=== PATIENT | female | born 1965 | race Caucasian/White ===

== ENCOUNTER 2022-05-01 00:18 | Emergency (ER) | payer OTHER ==
--- NOTE | 2022-05-01 03:33 | ER ---
Nurse's Notes [facility] Name: Bibiana Lomeli Age: 56 yrs Sex: Female : 1965 Arrival Date: 05/01/2022 Time: 00:22 Bed 15 Private MD: Diagnosis: Contusion of left foot Presentation: 05/01 01:00 Chief complaint: Patient states: "I did something to my left foot, the 3 toes in the vc1 middle hurt.". Coronavirus screen: Vaccine status: Patient reports being unvaccinated. Client denies travel out of the [place] in the last 14 days. At this time, the client does not indicate any symptoms associated with coronavirus-19. Ebola Screen: Patient negative for fever greater than or equal to 101.5 degrees Fahrenheit, and additional compatible Ebola Virus Disease symptoms Patient denies exposure to infectious person. Patient denies travel to an Ebola-affected area in the 21 days before illness onset. No symptoms or risks identified at this time. Risk Assessment: Do you want to hurt yourself or someone else? Patient reports no desire to harm self or others. Onset of symptoms was April 27, 2022. 01:00 Method Of Arrival: Ambulatory vc1 01:00 Acuity: CHAPARRITA 4 vc1 01:09 Initial Sepsis Screen: Does the patient meet any 2 criteria? No. Patient's initial vc1 sepsis screen is negative. Does the patient have a suspected source of infection? No. Patient's initial sepsis screen is negative. Triage Assessment: 01:05 General: Appears in no apparent distress. Behavior is calm, cooperative, appropriate vc1 for age. Pain: Complains of pain in left second toe, left third toe and left fourth toe Pain does not radiate. Pain currently is 7 out of 10 on a pain scale. EENT: No deficits noted. No signs and/or symptoms were reported regarding the EENT system. Neuro: No deficits noted. Cardiovascular: No deficits noted. Respiratory: Airway is patent Respiratory effort is even, unlabored, Respiratory pattern is regular, symmetrical. GI: No deficits noted. No signs and/or symptoms were reported involving the gastrointestinal system. : No deficits noted. No signs and/or symptoms were reported regarding the genitourinary system. Derm: Bruising that is dark purple, on left second toe, left third toe and left fourth toe. Musculoskeletal: Reports pain in left second toe, left third toe and left fourth toe. 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 - Post-menopause vc1 Historical: - Allergies: 01:02 PENICILLINS; vc1 01:02 Levaquin; vc1 01:02 Avalox; vc1 01:02 Morphine; vc1 01:02 Macrodentin; vc1 01:02 Clindamycin; vc1 01:02 Clarithromycin; vc1 - Home Meds: 01:02 metoprolol tartrate 25 mg Oral tab 1 tab 2 times per day [Active]; gabapentin 300 mg vc1 oral cap 1 cap 3 times per day [Active]; oxybutynin chloride 10 mg Oral tr24 1 tab twice a day [Active]; glipizide 10 mg Oral tab 1 tab 2 times per day [Active]; atorvastatin 40 mg oral tab 1 tab once daily [Active]; Nexium 40 mg Oral cpDR 1 cap once daily [Active]; - PMHx: 01:02 Diabetes mellitus; Hypertensive disorder; XGP kidney; vc1 - PSHx: 01:02 section; Stented artery; Cholecystectomy; vc1 - Immunization history:: Client reports having NOT received the Covid vaccine. - Social history:: Smoking status: Patient/guardian denies using tobacco, but has a distant history of tobacco abuse. Screenin:28 [facility] ED Fall Risk Assessment (Adult) History of falling in the last 3 months, lg3 including since admission No falls in past 3 months (0 pts). Abuse screen: Denies threats or abuse. Denies injuries from another. Nutritional screening: No deficits noted. Tuberculosis screening: No symptoms or risk factors identified. Assessment: 02:28 General: Appears in no apparent distress. comfortable, Behavior is calm, cooperative. lg3 Pain: Complains of pain in left foot. Neuro: No deficits noted. Leslie Agitation-Sedation Scale (RASS): 0 - Alert and Calm Level of Consciousness is awake, alert, obeys commands, Oriented to person, place, time, situation. Cardiovascular: No deficits noted. Denies chest pain, shortness of breath, Capillary refill < 3 seconds Clubbing of nail beds is absent JVD is absent Patient's skin is warm and dry. Respiratory: No deficits noted. Airway is patent Respiratory effort is even, unlabored, Respiratory pattern is regular, symmetrical. GI: No deficits noted. No signs and/or symptoms were reported involving the gastrointestinal system. : No deficits noted. No signs and/or symptoms were reported regarding the genitourinary system. EENT: No deficits noted. No signs and/or symptoms were reported regarding the EENT system. Derm: Skin is intact, is healthy with good turgor, Skin is dry, Skin is normal, Skin temperature is warm Bruising that is green, yellow, on left fourth toe and left third toe and left second toe. Musculoskeletal: Swelling present in left fourth toe and left third toe and left second toe Reports pain in left foot. 03:50 Reassessment: Patient appears in no apparent distress at this time. No changes from lg3 previously documented assessment. Patient and/or family updated on plan of care and expected duration. Pain level reassessed. Patient is alert, oriented x 3, equal unlabored respirations, skin warm/dry/pink. Vital Signs: 01:00 Weight 102.97 kg; Height 5 ft. 4 in. (162.56 cm); Pain 6/10; vc1 01:07 BP 164 / 78; Pulse 62; Resp 14; Temp 97.7; Pulse Ox 99% ; vc1 03:50 BP 149 / 76; Pulse 71; Resp 16 S; Pulse Ox 100% on R/A; lg3 01:00 Body Mass Index 38.96 (102.97 kg, 162.56 cm) vc1 ED Course: 00:22 Patient arrived in ED. ja2 01:02 Triage completed. vc1 01:07 Arm band placed on left wrist. vc1 01:23 Andrew Abebe NP is PHCP. pm1 01:23 Kristian Pruitt MD is Attending Physician. pm1 02:28 Patient has correct armband on for positive identification. Placed in gown. Bed in low lg3 position. Call light in reach. Side rails up X 1. Door closed. Noise minimized. Warm blanket given. 03:50 No provider procedures requiring assistance completed. Patient did not have IV access lg3 during this emergency room visit. Administered Medications: 03:49 Drug: Acetaminophen-Codeine (300 mg-30 mg) 1 tablet Route: PO; lg3 03:50 Follow up: Response: No adverse reaction lg3 Medication: 03:51 VIS not applicable for this client. lg3 Outcome: 03:33 Discharge ordered by MD. pm1 03:50 Discharged to home ambulatory. lg3 03:50 Condition: stable 03:50 Discharge instructions given to patient, Instructed on discharge instructions, follow up and referral plans. medication usage, Demonstrated understanding of instructions, follow-up care, medications, Prescriptions given X 1. 04:00 Patient left the ED. lg3 Signatures: Andrew Abebe NP EQUIPMENT PROCESSOR pm1 Mitzi Barriga RN RN lg3 Emily Cardona 2 Mili Cash RN RN vc1 Corrections: (The following items were deleted from the chart) : 02:28 Derm: No deficits noted. Skin is intact, is healthy with good turgor, Skin is lg3 dry, Skin is normal, Skin temperature is warm lg3 :33 02:28 Musculoskeletal: Reports pain in left foot lg3 lg3
--- NOTE | 2022-05-01 03:33 | EDPHYS ---
Physician Documentation [facility] Name: Bibiana Lomeli Age: 56 yrs Sex: Female : 1965 Arrival Date: 05/01/2022 Time: 00:22 Bed 15 Private MD: KIARA Physician Kristian Pruitt HPI: 05/01 01:46 This 56 yrs old Female presents to ER via Ambulatory with complaints of Foot Injury. pm1 01:46 The patient presents with pain, that is acute. The complaints affect the left second pm1 toe, left third toe and left fourth toe. Context: The problem was sustained at home, resulted from stubbing her foot on something, the patient can fully bear weight, the patient is able to ambulate, Problem is a result from a previous injury: No. Onset: The symptoms/episode began/occurred 1 week(s) ago. Modifying factors: The symptoms are alleviated by nothing. the symptoms are aggravated by touching area. Associated signs and symptoms: Pertinent positives: swelling, bruising to affected toes. Treatment prior to arrival includes: no previous treatment. Severity of symptoms: in the emergency department the symptoms are unchanged. The patient has not experienced similar symptoms in the past. The patient has not recently seen a physician. 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/A - Post-menopause vc1 Historical: - Allergies: 01:02 PENICILLINS; vc1 01:02 Levaquin; vc1 01:02 Avalox; vc1 01:02 Morphine; vc1 01:02 Macrodentin; vc1 01:02 Clindamycin; vc1 01:02 Clarithromycin; vc1 - Home Meds: 01:02 metoprolol tartrate 25 mg Oral tab 1 tab 2 times per day [Active]; gabapentin 300 mg vc1 oral cap 1 cap 3 times per day [Active]; oxybutynin chloride 10 mg Oral tr24 1 tab twice a day [Active]; glipizide 10 mg Oral tab 1 tab 2 times per day [Active]; atorvastatin 40 mg oral tab 1 tab once daily [Active]; Nexium 40 mg Oral cpDR 1 cap once daily [Active]; - PMHx: 01:02 Diabetes mellitus; Hypertensive disorder; XGP kidney; vc1 - PSHx: 01:02 section; Stented artery; Cholecystectomy; vc1 - Immunization history:: Client reports having NOT received the Covid vaccine. - Social history:: Smoking status: Patient/guardian denies using tobacco, but has a distant history of tobacco abuse. ROS: 01:46 Constitutional: Negative for fever, chills, and weight loss, Cardiovascular: Negative pm1 for chest pain, palpitations, and edema, Respiratory: Negative for shortness of breath, cough, wheezing, and pleuritic chest pain. 01:46 Skin: Negative for injury, rash, and discoloration. 01:46 MS/extremity: Positive for pain, swelling, tenderness, of the left fourth toe and left third toe and left second toe. 01:46 All other systems are negative. Exam: 01:46 Constitutional: This is a well developed, well nourished patient who is awake, alert, pm1 and in no acute distress. Head/Face: Normocephalic, atraumatic. 01:46 Cardiovascular: Exam negative for acute changes, Rate: normal, Rhythm: regular, Pulses: no pulse deficits are appreciated. 01:46 Respiratory: Exam negative for acute changes, respiratory distress, shortness of breath. 01:46 Musculoskeletal/extremity: Extremities: grossly normal except: noted in the left fourth toe and left third toe and left second toe: ecchymosis, swelling, tenderness, There is no evidence of decreased ROM, deformity. 01:46 Neuro: Exam negative for acute changes, Orientation: is normal, Mentation: is normal, Motor: is normal, moves all fours. Vital Signs: 01:00 Weight 102.97 kg; Height 5 ft. 4 in. (162.56 cm); Pain 6/10; vc1 01:07 BP 164 / 78; Pulse 62; Resp 14; Temp 97.7; Pulse Ox 99% ; vc1 03:50 BP 149 / 76; Pulse 71; Resp 16 S; Pulse Ox 100% on R/A; lg3 01:00 Body Mass Index 38.96 (102.97 kg, 162.56 cm) vc1 MDM: 01:28 Patient medically screened. pm1 01:46 ED course: Patient offered pain medications, She refused.. pm1 02:18 Data reviewed: vital signs. pm1 02:18 Differential diagnosis: dislocation, closed fracture, contusion. pm1 03:32 Counseling: I had a detailed discussion with the patient and/or guardian regarding: the pm1 historical points, exam findings, and any diagnostic results supporting the discharge/admit diagnosis, radiology results, the need for outpatient follow up, to return to the emergency department if symptoms worsen or persist or if there are any questions or concerns that arise at home. 05/01 01:45 Order name: Foot Left 3 View XRAY pm1 05/01 03:38 Order name: Post-op Orthopedic Shoe; Complete Time: 03:50 pm1 Administered Medications: 03:49 Drug: Acetaminophen-Codeine (300 mg-30 mg) 1 tablet Route: PO; lg3 03:50 Follow up: Response: No adverse reaction lg3 Disposition: 07:07 Co-signature as Attending Physician, Kristian Pruitt MD I reviewed the patient's care rt provided by the Advanced Practice Provider and agree with the diagnosis and treatment plan. Disposition Summary: 05/01/22 03:33 Discharge Ordered Location: Home pm1 Problem: new pm1 Symptoms: have improved pm1 Condition: Stable pm1 Diagnosis - Contusion of left foot pm1 Followup: pm1 - With: Emergency Department - When: As needed - Reason: Worsening of condition Followup: pm1 - With: Private Physician - When: 2 - 3 days - Reason: Recheck today's complaints, Continuance of care, Re-evaluation by your physician Discharge Instructions: - Discharge Summary Sheet pm1 - Foot Contusion pm1 Forms: - Medication Reconciliation Form pm1 - Thank You Letter pm1 - Antibiotic Education pm1 - Prescription Opioid Use pm1 Prescriptions: - Tylenol-Codeine #3 300 mg-30 mg Oral - take 2 tablet by ORAL route every 6 hours As needed; 20 tablet; Refills: 0, pm1 Product Selection Permitted Signatures: Dispatcher [employer] EDAndrew Rob, HIMANSHU FABRIC WORKER LEADER pm1 Mitzi Barriga, RN RN lg3 Mili Cash RN RN vc1 Kristian Pruitt MD MD rt
[2022-05-01] MEDS ORDERED: CODEINE 30MG/APAP 300MG TAB ONE (03:45)
[2022-05-01 04:22] VITALS: TEMP 97.7
[2022-05-01 04:26] VITALS: BP 149/76; O2SAT 100
--- NOTE | 2022-05-01 09:59 | RAD REPORT ---
EXAM DESCRIPTION: RAD - Foot Left 3 View - 05/01/2022 2:48 am CLINICAL HISTORY: Female, 56 years old, PAIN TECHNIQUE: 3 views COMPARISON: None. FINDINGS: Diffuse osteopenia slightly limits assessment. No acute fracture or dislocation. Joint spa marshall and articular surfaces are preserved. Dorsal soft tissue swelling of the forefoot. IMPRESSION: Osteopenia with dorsal soft tissue swelling of the forefoot. No acute osseous finding of the left foot. Electronically signed by: Miguel Angel Lo MD 05/01/2022 3:02 AM PRODUCTION ENGINE REPAIRER Due to temporary technical issues with the PACS/Fluency reporting system, reports are being signed by the in house radiologists without review as a courtesy to insure prompt reporting. The interpreting radiologist is fully responsible for the content of the report.
== END 2022-05-01 04:00 | disposition home or self-care (01) ==
LOC: ER 00:18
DX: S90.122A Contusion of left lesser toe(s) without damage to nail, initial encounter (principal)
CPT/HCPCS: 99283

== ENCOUNTER 2023-01-27 17:56 | Emergency (ER) | payer OTHER ==
--- OUTSIDE RECORDS SUMMARY | 2023-01-27 18:05 | XMS REPORT | Continuity of Care Document ---
:1965 Author Organization [facility] t Address [address] [facility] [place] [address] Care Team Providers Name Role Phone LEROY SON Primary Care Physician Unavailable AUREA GUZMÁN Attending Clinician Unavailable NIYA JACKSON Attending Clinician Unavailable HUMBERTO SUTHERLAND Attending Clinician Unavailable MD BRAULIO Attending Clinician Unavailable DELGADO DUMONT Attending Clinician Unavailable Sonia Bagley Attending Clinician Unavailable JENNIFER MENA Attending Clinician Unavailable ANGELO ORELLANA Attending Clinician Unavailable CHRISTOPH GUSMAN Attending Clinician Unavailable LAB90 Attending Clinician Unavailable CHANO SCOTT Attending Clinician Unavailable SHAD DE LA ROSA Attending Clinician Unavailable ALFONSO GARCIA Attending Clinician Unavailable DEZ MEAD Attending Clinician Unavailable SHOAIB NAVARRO Attending Clinician Unavailable Omar Murphy MD Attending Clinician OMAR MURPHY Attending Clinician Unavailable MIREYA SHAW Attending Clinician Unavailable MALENA CHAND Attending Clinician Unavailable AUREA GUZMÁN Admitting Clinician Unavailable Federica Phipps Admitting Clinician Unavailable TEJAS BURNS Admitting Clinician Unavailable Physician, No Primary or Family Admitting Clinician Unavaila MALENA Mejia Admitting Clinician Unavailable Payers Payer Name Policy Type Policy Number Effective Date Expiration Date Isha DESAI [id number] 2018 00:00:00 GINA SMITH [employer] 9 [id number] 2022 SILVER 3: HMO PHYSICAL THERAPY ASST 00:00:00 87 ON Problems Condition Condition Condition Status Onset Resolution Last Treating Co mments Source Name Details Category Date Date Treatment Clinician Date Bilateral Bilateral Disease Active 2022-03 Nettie y hip pain hip pain 0-05 Seybol d 00:00: - 00 Externa l Chronic Chronic Disease Active 2022-03 Louisa bilateral bilateral 0-05 Seyb old low back low back 00:00: - pain pain 00 Externa without without l sciatica sciatica Current Current Disease Active Louisa 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-05 Se ybold major major 00:00: - depressive depressive 00 Ex terna disorder disorder l without without prior prior episode episode Anxiety Anxiety Disease Active Louisa 9-07 Seybold 00:00: - 00 Externa l 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 [place] in 2017 History of History of Disease Active Overview : Louisa heart heart 8-10 Formattin Seybold artery artery 00:00: g of this - stent stent 00 note Externa might be l different from the original. 2017 one stent placed. 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 00:00: - pyelonephr pyelonephr 00 Ex terna itis) itis) l Chronic Chronic Disease Active [place]a cystitis cystitis 2-28 Seybol d 00:00: - 00 Externa l 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 00:00: - mixed mixed 00 Externa hyperlipid hyperlipid l emia emia (multi (multi [facility]) [facility]) Seasonal Seasonal Disease Active Kelse y allergic allergic 2- Seybol d rhinitis rhinitis 00:00: - due to due to 00 Externa pollen pollen l BRANDEN-inhibi BRANDEN-inhibi Disease Active K elsey tor cough tor cough 2-28 Seyb old 00:00: - 00 Externa l Primary Primary Disease Active [place]a hypertensi hypertensi 2-28 Se ybold on on 00:00: - 00 Externa l Gastroesop Gastroesop Disease Active K kahlil hageal hageal 2-28 Seybold reflux reflux 00:00: - disease disease 00 Externa without without l esophagiti esophagiti s s Acute Acute Disease Active [facility] pyelonephr pyelonephr 6-13 Светлана kes itis itis 00:00: Medical 00 Center Left flank Left flank Disease [facility] Pyelonephr Pyelonephr Disease Active [facility] itis 6[facility]12 [facility] Center Type 2 Type 2 Disease Recurre Last [facility] Diabetes Diabetes nce 3-04 Assess[facility] Ysabel es 00:00: t & Plan: Medical 00 [facility] Center g of this note might be different from the original. Diabetes is diet controlle d per patient report. In review of past HGA1C, there have been times her level was 8. Diet modificat ion and education was done today on decreasin g carbohydr ates in her diet. Follow up with PCP encourage d. Again, diabetes when poorly controlle d, is a factor in metabolic syndrome and ultimatel y fatty liver risk factor. NAFL NAFL Disease Active [facility] (nonalcoho (nonalcoho - [facility] lic fatty lic fatty 00:00: t & Plan: M edical liver) liver) 00 [facility] g of this note might be different from the original. Non alcoholic fatty liver suspected due to changes on imaging and the multiple risk factors of metabolic syndrome. See discussio n above. Non invasive testing with fibroscan and fat cap are offered free of charge with this visit. The fibroscan will be a non invasive estimate of fibrosis and the new fat cap will estimate the fat content of the liver. The patient must be fasting for this free testing. She will return to review her testing in a few weeks and get the free studies noted on that day. Obesity Obesity Disease Active [facility] 3- [facility] 00:00: t & Plan: Medical 00 [facility] g of this note might be different from the original. Body mass index is 36.66 kg/m2. Obesity is a risk factor for fatty liver disease and a major part of metabolic syndrome. Today we reviewed the need to control all risk factors for fatty liver which will include diet modificat ion and exercise for weight loss. Metabolic Metabolic Disease Active [facility] syndrome syndrome 3- Assessmen Ysabel es 00:00: t & Plan: Medical [address] [place] [address] g of this note might be different from the original. Risk factors for metabolic syndrome includes obesity, DM, hyperlipi demia and hypertens ion. She has all risk factors for metabolic syndrome which raises the risks for fatty liver. Control of these risk factors is critical to improve the fatty liver. Immunity Immunity Disease Active [facility] t status status 3- [facility] testing testing 00:00: t & Plan: Medic al 00 [facility] g of this note might be different from the original. Serologic al tests will be completed to determine the presence of immunity to hepatitis A and B. If the patient does not have adequate immunity, we would recommend administr ation of appropria te vaccinati on as per CDC guideline s by the primary care provider. Abnormal Abnormal Disease [facility] diagnostic [facility]:00: t & Plan: Medical imaging [facility] of this note might be different from the original. The high level imaging was done without contrast but showed evidence of changes consisten t with fatty liver. Underlyin g liver disease can be hidden in the fatty liver. She has multiple risk factors for fatty liver with metabolic syndrome. See discussio n below. A comprehen sive work up is planned to assess for genetic, autoimmun e and hereditar y liver diseases. She also has a sister that has hemochrom atosis. Iron panels and ferritin will be done for screening . Abnormal Abnormal Disease [facility] enzymes enzymes 00:00: t & Plan: Medic al 00 [facility] g of this note might be different from the original. The liver enzymes are noted to be mildly abnormal in a hepatocel lular pattern without evidence of synthetic dysfuncti on. No recent labs however. As noted above, a comprehen sive assessmen t is planned. Other Other Disease Active [facility] hyperlipid [facility]lipid 3-04 [facility] emia emia 00:00: t & Plan: Medical 00 [facility] g of this note might be different from the original. Hyperlipi demia is a risk factor for metabolic syndrome and thus raises the risk for fatty liver disease. There are no contraind ications at this time for statin therapy. Control of the lipids through medicatio n, diet and exercise all reinforce d today. Nephrolith Nephrolith Disease Active [facility] iasis iasis 7-31 [facility] 00:[facility]: [facility] 00 Center ROUTINE ROUTINE Diagnosis Active 2015-06-11 [facility] MAMMOGRAM MAMMOGRAM 2-16 16:34:00 l Active 00:00: Brian 04/16/2015 00 [facility] Allergies, Adverse Reactions, Alerts Allergy Allergy Status Severity Reaction(s) Onset Inactive Treating Comm ents Source Name Type Date Date Clinician Penicill DA Active U UNKNOWN 2022-03 [facility] ins 0-21 Clear 00:00: Brian 00 [facility] Quinolon DA Active U UNKNOWN 2022-03 [facility] es 0-21 Clear 00:00: Brian 00 [facility] prochlor DA Active U UNKNOWN 2022-03 [facility] perazine 0-21 Clear 00:00: Brian [facility] morphine DA Active SV HIVES 2022-03 [facility] 0-21 Clear 00:00: Brian [facility] nitrofur DA Active U UNKNOWN 2022-03 [facility] antoin 0-21 Clear 00:00: Brian [facility] levoflox DA Active U UNKNOWN 2022-03 [facility] acin 0-21 Clear 00:00: Brian [facility] moxiflox DA Active U UNKNOWN 2022-03 [facility] acin 0-21 Clear 00:00: Brian [facility] Morphine Propensi Active Hives Louisa ty to 9-07 Seybold adverse 00:00: - reaction 00 Externa s l Prilosec Propensi Active 2020-03 Diffuse Kelse y Otc ty to 0-11 blisterin Seybold adverse 00:00: g skin - reaction 00 rash, was Exter na s previousl l y on nexium and tolerated Clarithr Propensi Active Other (See [facility] omycin ty to Comments) 3-04 [facility] adverse 00:00: Medical reaction 00 Center s Nitrofur Propensi Active Other (See headaches [facility] antoin ty to Comments) 3-04 [facility] Monohyd/ adverse 00:00: Medical M-Cryst reaction 00 Center s Clarithr Propensi Active Other [place] omycin ty to 3-04 reaction( Seybold adverse 00:00: s): Other - reaction 00 (See Externa s Comments) l CLARITHR Allergy Active Other [facility] OMYCIN 3-04 [facility] 00:[facility]: Medical 00 Center NITROFUR Allergy Active Other [facility] ANTOIN 3-04 [facility] MONOHYD/ 00:00: Medical M-CRYST 00 Center Clindamy Propensi Active Other (See Sunlight [facility] sole ty to Comments) 2-19 esposure [facility] adverse 00:00: Medical reaction 00 Center s CLINDAMY Allergy Active Other [facility] SOLE 2-19 [facility] 00:00: Medical 00 Center Doxycycl Drug Active Blurred [facility] ine Allergy 7-31 vision [facility] 00:[facility]: Medical 00 [place] DOXYCYCL Allergy Active Med [facility] INE 7-31 [facility] 00:[facility]: Medical 00 Center Morphine Propensi Active Hives [facility] ty to 717 [facility] adverse 00:00: Medical reaction 00 Center s Penicill Propensi Active Shortness Of [address] [facility] ins ty to Breath, 717 has [facility] adverse Swelling 00:00: tolerated Medi odilon reaction 00 Cephalosp Cente r s orins including Ceftriaxo ne and Cephalexi n. Moxiflox Propensi Active Shortness Of [facility] acin ty to Breath 717 [facility] adverse 00:00: Medical reaction 00 [place] s Levoflox Propensi Active Shortness Of [facility] acin ty to Breath 717 [facility] adverse 00:00: Medical reaction 00 [place] s MOXIFLOX Allergy Active High Sob [facility] ACIN 7-17 [facility] 00:00: Medical 00 [place] LEVOFLOX Allergy Active High [facility] ACIN 7-17 [facility] 00:00: Medical 00 [place] PENICILL Allergy Active High [facility] INS 7-17 [facility] 00:00: Medical 00 [place] MORPHINE Allergy Active Hives [facility] 7-17 [facility] 00:00: Medical 00 [place] Nitrofur Propensi Active Headaches [facility] antoin ty to 4-23 [facility] Macrocry adverse 00:00: Medical stal reaction 00 Center s Kdc:[place] Propensi Active Short of Sarah ey ow ty to 4-23 breath Seybold Dye+Tart adverse 00:00: - razine+L reaction 00 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 s l sole Nitrofur Propensi Active Headaches Nettie sey antoin ty to 4-23 Seybold Macrocry adverse 00:00: - stal reaction 00 Externa s l NITROFUR Allergy Active [facility] ANTOIN 4-23 [facility] MACROCRY 00:00: Medical STAL 00 Center Nitrofur Propensi Active Other [place]a antoin ty to 327 reaction( Seybold Sodium adverse 00:00: s): Other - reaction 00 (See Externa s Comments) l , Other (See Comments) headaches Headaches headaches headaches headaches Prochlor Propensi Active 2018-0 [place]a perazine ty to 3-27 Seybold Edisylat adverse 00:00: - e reaction 00 Externa s l Penicill DA Active U UNKNOWN 2018-0 [facility] ins 3-27 Clear 00:00: Brian 00 [facility] Quinolon DA Active U UNKNOWN 2018-0 [facility] es 3-27 Clear 00:00: Brian 00 [facility] prochlor DA Active U 2018-0 [facility] perazine 3-27 Clear 00:00: Brian 00 [facility] morphine DA Active SV 2018-0 [facility] 3-27 Clear 00:00: Brian 00 [facility] nitrofur DA Active U 2018-0 [facility] antoin 3-27 Clear 00:00: Felton [facility] levoflox DA Active U UNKNOWN 2017-0 [facility] acin 3-27 Clear 00:00: Felton 00 [facility] moxiflox DA Active U 2018-0 [facility] acin 3-27 Clear 00:00: Brian 00 [facility] prochlor DA Active U UNKNOWN 20180 [facility] perazine 3-27 Clear 00:00: Brian 00 [facility] morphine DA Active SV HIVES 2018-0 [facility] 3-27 Clear 00:00: Brian 00 [facility] nitrofur DA Active U UNKNOWN 2018-0 [facility] antoin 3-27 Clear 00:00: Felton 00 [facility] moxiflox DA Active U UNKNOWN 2018-0 [facility] acin 3-27 Clear 00:00: Brian 00 [facility] Codeine Propensi Active Hives 0 itchingHi Sarah ey ty to 2-13 ves and Seybold adverse 00:00: itching - reaction 00 Externa s l Penicill Propensi Active Swelling Patient Nettie sey ins ty to 808 has Seybold adverse 00:00: tolerated - reaction 00 Cephalosp Exter na s orins l including Ceftriaxo ne and Cephalexi n.All air passages swellPati ent has tolerated Cephalosp orins including Ceftriaxo ne and Cephalexi n. Moxiflox Propensi Active Shortness of [place]a acin Hcl ty to Breath 10-06 Seybold adverse 00:00: - reaction 00 Externa s l Family History Family Member Diagnosis Comments Start Date Stop Date Source Natural mother Diabetes [facility] Natural mother Hypertension [facility] Natural mother Mental illness [facility] Natural mother Mental illness [facility] Natural sister Diabetes [facility] Social History Social Habit Start Date Stop Date Quantity Comments Source Gender identity Louisa ochoa - External History of tobacco Cigarette Smoker [facility] Sexual orientation [facility] Tobacco use and 2022-04-28 2022-04-28 Smokeless tobacco Juan beck Seybold exposure 00:00:00 00:00:00 non-user - External Alcohol intake 2022-02-05 2022-02-05 Current [facility] es 00:00:00 00:00:00 non-drinker of Medical Ce nter alcohol (finding) History of Social 2022-02-05 2022-02-05 [facility] function 00:00:00 00:00:00 [facility] Sex Assigned At 1965 [address] [facility] [address] Светлана roca 00:00:00 00:00:00 Medical Center Smoking Status Start Date Stop Date Source Tobacco smoking Louisa Reyes - consumption unknown External Never smoked tobacco Louisa Cope old - External Ex-smoker 2017-09-14 00:00:00 2017-09-14 [facility] 00:00:00 Center Medications Ordered Filled Start Stop Current Ordering Indication Dosage Frequency Signature Comments Components Source Medication Medication Date Date Medication? Clinician (SIG) Name Name Gabapentin 2022-03- No 300mg Take 1 Nettie mercedes 300 MG oral 0-05 10-05 capsule Prisca old Capsule 13:59: 00:00 (300 mg - 41 :00 total) by Externa mouth 3 l times daily. Calcium-Mag 2022-03 Yes 6{tbl} Take 6 Juan beck nesium-Zinc 0-05 tablets by Se ochoa [id number] 13:37: mouth - MG oral 52 daily Externa Tablet l Cholecalcif 2022-03 Yes 2000U Take 1 Nettie mercedes bryan 0-05 capsule Amy (Vitamin 13:37: (2,000 - D3) 50 MCG 52 units Externa (1999 UT) total) by l oral mouth Capsule daily. B 2022-03 Yes Take by Louisa Complex-Bio 0-05 mouth Seybold tin-FA (B 13:37: - COMPLETE 52 Externa OR) l Acetaminoph 2022-03 Yes 1{tbl} Q4H Take 1 Ke lsey en-Codeine 0-05 tablet by Seyb old #3 300-30 13:37: mouth - MG oral 52 every 4 Externa Tablet hours as l needed for pain. Metoprolol 2022-03 Yes 25mg Take 1 Kelse y Tartrate 0-05 tablet (25 Seybo ld (LOPRESSOR) 13:37: mg total) - 25 MG oral 52 by mouth 2 Ext martha Tablet times l daily. Esomeprazol 2022-03 Yes 40mg Take 2 Sarah ey e Magnesium 0-05 capsules Seyb old 20 MG oral 13:37: (40 mg - Delayed 52 total) by Externa Release mouth l Capsule every morning (before breakfast) . ASHWAGANDHA 2022-03 Yes Take by Nettie sey OR 0-05 mouth Seybold 13:37: - 52 Externa l Gabapentin 2022-03 Yes [id number] 400mg Take 1 Louisa 400 MG oral 0-05 capsule Seybo ld Capsule 00:00: (400 mg - 00 total) by Externa mouth 3 l times daily. Insulin 2022-03 Yes [id number] 76 units K elsey Glargine 0-05 sc daily. Seybol d (Basaglar 00:00: - KwikPen) 00 Externa 100 UNIT/ML l subcutaneou s Solution Pen-injecto r Insulin 2022-03 Yes [id number] If BS is K elsey Aspart 0-05 250 to Seybold (NovoLOG 00:00: 300, then - FlexPen) 00 take 2 Externa 100 UNIT/ML units sc, l subcutaneou If BS is s Solution 301 to 350 Pen-injecto then take r 4 units sc, If BS is 351 to 400 then take 6 units sc, If BS is above 401 take 8 units sc.She is to use insulin 3 times a day with meals with above instructio n. Continuous 2022-03 Yes [id number] Use as Louisa Blood Gluc 0-05 directed.. Sey bold Sensor 00:00: - (FreeStyle 00 Externa Soumya 3 l Sensor) does not apply Misc Calcium-Mag Yes 6{tbl} Take 6 Ke lsey nesium-Zinc 9-25 tablets by Se ybold [id number] 08:35: mouth - MG oral 58 daily Externa Tablet l Cholecalcif 0 Yes 2000U Take 1 Nettie sey bryan 9-25 capsule Seybold (Vitamin 08:35: (2,000 - D3) 50 MCG 58 units Externa (2000 UT) total) by l oral mouth Capsule daily. B Yes Take by Louisa Complex-Bio 9-25 mouth Seybold tin-FA (B 08:35: - COMPLETE 58 Externa OR) l Acetaminoph 0 Yes 1{tbl} Q4H Take 1 Ke lsey en-Codeine 9-25 tablet by Seyb old #3 300-30 08:35: mouth - MG oral 58 every 4 Externa Tablet hours as l needed for pain. Gabapentin Yes 300mg Take 1 Sarah ey 300 MG oral 9-25 capsule Seybo ld Capsule 08:35: (300 mg - 58 total) by Externa mouth 3 l times daily. Metoprolol Yes 25mg Take 1 Kelse y Tartrate 9-25 tablet (25 Seybo ld (LOPRESSOR) 08:35: mg total) - 25 MG oral 58 by mouth 2 Ext martha Tablet times l daily. Esomeprazol Yes 40mg Take 2 Sarah ey e Magnesium 9-25 capsules Seyb old 20 MG oral 08:35: (40 mg - Delayed 58 total) by Externa Release mouth l Capsule every morning (before breakfast) . ASHWAGANDHA Yes Take by Nettie sey OR 9-25 mouth Seybold 08:35: - 58 Externa l Azelastine Yes 2{spray Use 2 Nettie sey HCl 0.1 % 9-25 } sprays in Seybo ld nasal 00:00: each - Solution 00 nostril 2 Head Of [employer] Development a times l daily. Azelastine 0 Yes 2{spray Use 2 Nettie sey HCl 0.1 % 9-25 } sprays in Seybo ld nasal 00:00: each - Solution 00 nostril 2 [employer] a times l daily. Calcium-Mag 0 Yes 6{tbl} Take 6 Ke lsey nesium-Zinc 9-07 [id number] 15:18: mouth - MG oral 17 daily Externa Tablet l Cholecalcif Yes 2000U Take 1 Nettie sey bryan -07 capsule Seybold (Vitamin 15:18: (2,000 - D3) 50 MCG 17 units Externa (2000 UT) total) by l oral mouth Capsule daily. B Yes Take by Louisa Complex-Bio -07 mouth Seybold tin-FA (B 15:18: - COMPLETE 17 Externa OR) l Acetaminoph Yes 1{tbl} Q4H Take 1 Ke lsey en-Codeine -07 tablet by Seyb old #3 300-30 15:18: mouth - MG oral 17 every 4 Externa Tablet hours as l needed for pain. Gabapentin Yes 300mg Take 1 Saarh ey 300 MG oral -07 capsule Seybo ld Capsule 15:18: (300 mg - 17 total) by Externa mouth 3 l times daily. Metoprolol Yes 25mg Take 1 Kelse y Tartrate -07 tablet (25 Seybo ld (LOPRESSOR) 15:18: mg total) - 25 MG oral 17 by mouth 2 Ext martha Tablet times l daily. Esomeprazol Yes 40mg Take 2 Sarah ey e Magnesium - capsules Seyb old 20 MG oral 15:18: (40 mg - Delayed 17 total) by Externa Release mouth l Capsule every morning (before breakfast) . ASHWAGANDHA Yes Take by Nettie sey OR 9-07 mouth Seybold 15:18: - 17 Externa l glipiZIDE 5 Yes [id number] 5mg Take 1 Louisa MG oral 9-07 tablet (5 Seybold Tablet 00:00: mg total) - 00 by mouth Externa daily l (before a meal). glipiZIDE 5 Yes [id number] 5mg Take 1 Louisa MG oral 9-07 tablet (5 Seybold Tablet 00:00: mg total) - 00 by mouth Externa daily l (before a meal). glipiZIDE 5 Yes [id number] 5mg Take 1 Louisa MG oral 9-07 tablet (5 Seybold Tablet 00:00: mg total) - 00 by mouth Externa daily l (before a meal). Calcium-Mag Yes 6{tbl} Take 6 Ke lsey nesium-Zinc 8-10 tablets by otisruth [id number] 10:19: mouth - MG oral 00 daily Externa Tablet l Cholecalcif 0 Yes 2000U Take 1 Nettie sey bryan 8-10 capsule Seybold (Vitamin 10:19: (2,000 - D3) 50 MCG 00 units Externa (2000 UT) total) by l oral mouth Capsule daily B Yes Take by [place]a Complex-Bio 8-10 mouth Seybold tin-FA (B 10:19: - COMPLETE 00 Externa OR) l Acetaminoph Yes 1{tbl} Q4H Take 1 Ke lsey en-Codeine 8-10 tablet by Seyb old #3 300-30 10:19: mouth - MG oral 00 every 4 Externa Tablet hours as l needed for pain Gabapentin Yes 300mg Take 1 Sarah ey 300 MG oral 8-10 capsule Seybo ld Capsule 10:19: (300 mg - 00 total) by Externa mouth 3 l times daily Metoprolol Yes 25mg Take 1 Kelse y Tartrate 8-10 tablet (25 Seybo ld (LOPRESSOR) 10:19: mg total) - 25 MG oral 00 by mouth 2 Ext martha Tablet times l daily Esomeprazol Yes 40mg Take 2 Sarah ey e Magnesium 8-10 capsules Seyb old 20 MG oral 10:19: (40 mg - Delayed 00 total) by Externa Release mouth l Capsule every morning (before breakfast) ASHWAGANDHA Yes Take by Nettie sey OR 8-10 mouth Seybold 10:19: - 00 Externa l ASHWAGANDHA Yes Take by Nettie sey OR 8-08 mouth Seybold 14:40: - 32 Externa l Calcium-Mag Yes 6{tbl} Take 6 Ke lsey nesium-Zinc 8-08 tablets by ybruth [id number] 14:37: mouth - MG oral 51 daily Externa Tablet l Cholecalcif 0 Yes 2000U Take 1 Nettie sey bryan 8-08 capsule Seybold (Vitamin 14:37: (2,000 - D3) 50 MCG 51 units Externa (2000 UT) total) by l oral mouth Capsule daily B Yes Take by Louisa Barron-Bio 8-08 mouth Seybold tin-FA (B 14:37: - COMPLETE 51 Externa OR) l Acetaminoph Yes 1{tbl} Q4H Take 1 Ke lsey en-Codeine 8-08 tablet by Seyb old #3 300-30 14:37: mouth - MG oral 51 every 4 Externa Tablet hours as l needed for pain Gabapentin Yes 300mg Take 1 Sarah ey 300 MG oral 8-08 capsule Seybo ld Capsule 14:37: (300 mg - 51 total) by Externa mouth 3 l times daily Metoprolol Yes 25mg Take 1 Kelse y Tartrate 8-08 tablet (25 Seybo ld (LOPRESSOR) 14:37: mg total) - 25 MG oral 51 by mouth 2 Ext martha Tablet times l daily Esomeprazol Yes 40mg Take 2 Sarah ey e Magnesium 8-08 capsules Seyb old 20 MG oral 14:37: (40 mg - Delayed 51 total) by Externa Release mouth l Capsule every morning (before breakfast) Insulin Yes [id number] 70 units K elsey Glargine 8-03 sc daily Seybold (Basaglar 00:00: - KwikPen) 00 Externa 100 UNIT/ML l subcutaneou s Solution Pen-injecto r Insulin Yes [id number] 70 units K elsey Glargine 8-03 sc daily Seybold (Basaglar 00:00: - KwikPen) 00 Externa 100 UNIT/ML l subcutaneou s Solution Pen-injecto r Insulin Yes [id number] 70 units K elsey Glargine 8-03 sc daily Seybold (Basaglar 00:00: - KwikPen) 00 Externa 100 UNIT/ML l subcutaneou s Solution Pen-injecto r Insulin Yes [id number] 70 units K elsey Glargine 8-03 sc daily Seybold (Basaglar 00:00: - KwikPen) 00 Externa 100 UNIT/ML l subcutaneou s Solution Pen-injecto r Insulin 2022-0 3- No [id number] 70 units Louisa Glargine 8- 10-05 sc daily Seybol d (Basaglar 00:00: 00:00 - KwikPen) 00 :00 Externa 100 UNIT/ML l subcutaneou s Solution Pen-injecto r Promethazin 2022-0 Yes [id number] 25mg Take 1 Louisa e HCl 7-23 tablet (25 Seybold (PHENERGAN) 00:00: mg total) - 25 MG oral 00 by mouth Exter na Tablet every 12 l hours as needed for nausea Promethazin 2022-0 Yes [id number] 25mg Take 1 Louisa e HCl 7-23 tablet (25 Seybold (PHENERGAN) 00:00: mg total) - 25 MG oral 00 by mouth Exter na Tablet every 12 l hours as needed for nausea Promethazin 2022-0 Yes [id number] 25mg Take 1 Louisa e HCl 7-23 tablet (25 Seybold (PHENERGAN) 00:00: mg total) - 25 MG oral 00 by mouth Exter na Tablet every 12 l hours as needed for nausea Promethazin 2022-0 Yes [id number] 25mg Take 1 Louisa e HCl 7-23 tablet (25 Seybold (PHENERGAN) 00:00: mg total) - 25 MG oral 00 by mouth Exter na Tablet every 12 l hours as needed for nausea Promethazin 2022-0 Yes [id number] 25mg Take 1 Louisa e HCl 7-23 tablet (25 Seybold (PHENERGAN) 00:00: mg total) - 25 MG oral 00 by mouth Exter na Tablet every 12 l hours as needed for nausea Promethazin 2022-0 Yes [id number] 25mg Take 1 Louisa e HCl 7-23 tablet (25 Seybold (PHENERGAN) 00:00: mg total) - 25 MG oral 00 by mouth Exter na Tablet every 12 l hours as needed for nausea Oxybutynin 2022-0 Yes [id number] 10mg Take 1 K elsey Chloride 10 7-17 tablet (10 Se ybold MG oral 00:00: mg total) - TABLET SR 00 by mouth 2 Exte rna 24 HR times l daily Oxybutynin 2022-0 Yes [id number] 10mg Take 1 K elsey Chloride 10 7-17 tablet (10 Se ybold MG oral 00:00: mg total) - TABLET SR 00 by mouth 2 Exte rna 24 HR times l daily Oxybutynin 2023-0 Yes [id number] 10mg Take 1 K elsey Chloride 10 7-17 tablet (10 Se ybold MG oral 00:00: mg total) - TABLET SR 00 by mouth 2 Exte rna 24 HR times l daily Oxybutynin 2023-0 Yes [id number] 10mg Take 1 K elsey Chloride 10 7-17 tablet (10 Se ybold MG oral 00:00: mg total) - TABLET SR 00 by mouth 2 Exte rna 24 HR times l daily Oxybutynin 2023-0 Yes [id number] 10mg Take 1 K elsey Chloride 10 7-17 tablet (10 Se ybold MG oral 00:00: mg total) - TABLET SR 00 by mouth 2 Exte rna 24 HR times l daily Oxybutynin 2023-0 Yes [id number] 10mg Take 1 K elsey Chloride 10 7-17 tablet (10 Se ybold MG oral 00:00: mg total) - TABLET SR 00 by mouth 2 Exte rna 24 HR times l daily Atorvastati 2023-0 Yes [id number] 40mg Take 1 Louisa n Calcium 7-12 tablet (40 Seyb old 40 MG oral 00:00: mg total) - Tablet 00 by mouth Externa nightly l Lisinopril 2023-0 Yes [id number] 5mg Take 1 K elsey 5 MG oral 7-12 tablet (5 Seybo ld Tablet 00:00: mg total) - 00 by mouth Externa daily l Atorvastati 2023-0 Yes [id number] 40mg Take 1 Louisa n Calcium 7-12 tablet (40 Seyb old 40 MG oral 00:00: mg total) - Tablet 00 by mouth Externa nightly l Lisinopril 2023-0 Yes [id number] 5mg Take 1 K elsey 5 MG oral 7-12 tablet (5 Seybo ld Tablet 00:00: mg total) - 00 by mouth Externa daily l Atorvastati 2023-0 Yes [id number] 40mg Take 1 Louisa n Calcium 7-12 tablet (40 Seyb old 40 MG oral 00:00: mg total) - Tablet 00 by mouth Externa nightly l Lisinopril 2023-0 Yes [id number] 5mg Take 1 K elsey 5 MG oral 7-12 tablet (5 Seybo ld Tablet 00:00: mg total) - 00 by mouth Externa daily l Atorvastati 2022-0 Yes [id number] 40mg Take 1 Louisa n Calcium 7-12 tablet (40 Seyb old 40 MG oral 00:00: mg total) - Tablet 00 by mouth Externa nightly l Lisinopril 2022-0 Yes [id number] 5mg Take 1 K elsey 5 MG oral 7-12 tablet (5 Seybo ld Tablet 00:00: mg total) - 00 by mouth Externa daily l Atorvastati 2022-0 Yes [id number] 40mg Take 1 Louisa n Calcium 7-12 tablet (40 Seyb old 40 MG oral 00:00: mg total) - Tablet 00 by mouth Externa nightly l Lisinopril 2022-0 Yes [id number] 5mg Take 1 K elsey 5 MG oral 7-12 tablet (5 Seybo ld Tablet 00:00: mg total) - 00 by mouth Externa daily l Atorvastati 2022-0 Yes [id number] 40mg Take 1 Louisa n Calcium 7-12 tablet (40 Seyb old 40 MG oral 00:00: mg total) - Tablet 00 by mouth Externa nightly l Lisinopril 2022-0 Yes [id number] 5mg Take 1 K elsey 5 MG oral 7-12 tablet (5 Seybo ld Tablet 00:00: mg total) - 00 by mouth Externa daily l Insulin Yes [id number] 50 units K elsey Glargine 7-06 sc daily Seybold (Basaglar 00:00: - KwikPen) 00 Externa 100 UNIT/ML l subcutaneou s Solution Pen-injecto r Continuous Yes [id number] CHECK FOR Louisa Blood Gluc 6-27 3 BLOOD Seybold Sensor 00:00: SUGAR TWO - (FreeStyle 00 TIMES A Head Of Business Development a Soumya 2 DAY ; l Sensor) [place] Coker does not SENSOR apply Misc EVERY 14 DAYS Continuous Yes [id number] CHECK FOR Louisa Blood Gluc 6-27 3 BLOOD Seybold Sensor 00:00: SUGAR TWO - (FreeStyle 00 TIMES A Head Of Business Development a Soumya 2 DAY ; l Sensor) [place] Coker does not SENSOR apply Misc EVERY 14 DAYS Continuous Yes [id number] CHECK FOR Louisa Blood Gluc 6-27 3 BLOOD Seybold Sensor 00:00: SUGAR TWO - (FreeStyle 00 TIMES A Head Of Business Development a Soumya 2 DAY ; l Sensor) [place] Coker does not SENSOR apply Misc EVERY 14 DAYS Continuous Yes [id number] CHECK FOR Louisa Blood Gluc 6-27 3 BLOOD Seybold Sensor 00:00: SUGAR TWO - (FreeStyle 00 TIMES A Head Of Business Development a Soumya 2 DAY ; l Sensor) [place] Coker does not SENSOR apply Misc EVERY 14 DAYS Continuous Yes [id number] CHECK FOR Louisa Blood Gluc 6-27 3 BLOOD Seybold Sensor 00:00: SUGAR TWO - (FreeStyle 00 TIMES A Head Of Business Development a Soumya 2 DAY ; l Sensor) [place] Coker does not SENSOR apply Misc EVERY 14 DAYS Continuous 2022- No [id number] CHECK FOR Louisa Blood Gluc 6-27 10-05 3 BLOOD Seybold Sensor 00:00: 00:00 SUGAR TWO - (FreeStyle 00 :00 TIMES A Head Of Business Development a Soumya 2 DAY ; l Sensor) [place] Coker does not SENSOR apply Misc EVERY 14 DAYS Doxycycline Yes [id number] 100mg Take 1 Louisa Hyclate 100 6-25 tablet Seybol d MG oral 00:00: (100 mg - Tablet 00 total) by Externa mouth 2 l times daily FLUTICASONE Yes [id number] 50ug Use 1 K elsey PROPIONATE, 6-12 spray (50 Sey bold NASAL, 50 00:00: mcg total) - MCG/ACT 00 in each Externa nasal nostril l Suspension daily FLUTICASONE Yes [id number] 50ug Use 1 K elsey PROPIONATE, 6-12 spray (50 Sey bold NASAL, 50 00:00: mcg total) - MCG/ACT 00 in each Externa nasal nostril l Suspension daily FLUTICASONE Yes [id number] 50ug Use 1 K elsey PROPIONATE, 6-12 spray (50 Sey bold NASAL, 50 00:00: mcg total) - MCG/ACT 00 in each Externa nasal nostril l Suspension daily FLUTICASONE Yes [id number] 50ug Use 1 K elsey PROPIONATE, 6-12 spray (50 Sey bold NASAL, 50 00:00: mcg total) - MCG/ACT 00 in each Externa nasal nostril l Suspension daily FLUTICASONE Yes 50ug Use 1 K elsey PROPIONATE, 6-12 spray (50 Sey bold NASAL, 50 00:00: mcg total) - MCG/ACT 00 in each Externa nasal nostril l Suspension daily FLUTICASONE Yes 50ug Use 1 K elsey PROPIONATE, 6-12 spray (50 Sey bold NASAL, 50 00:00: mcg total) - MCG/ACT 00 in each Externa nasal nostril l Suspension daily FLUTICASONE Yes 50ug Use 1 K elsey PROPIONATE, 6-12 spray (50 Sey bold NASAL, 50 00:00: mcg total) - MCG/ACT 00 in each Externa nasal nostril l Suspension daily Insulin Yes [id number] 60 units Louisa Glargine 5-19 3 units sc Seybold (Basaglar 00:00: every - KwikPen) 00 night Externa 100 UNIT/ML l subcutaneou s Solution Pen-injecto r Oxybutynin Yes [id number] 10mg Take 1 K elsey Chloride 10 5-19 tablet (10 Se ybold MG oral 00:00: mg total) - TABLET SR 00 by mouth 2 Exte rna 24 HR times l daily glipiZIDE 2022- No Louisa 10 MG oral 5-15 08-10 Seybold Tablet 00:00: 00:00 - 00 :00 Externa l Calcium-Mag Yes 6{tbl} Take 6 Ke lsey nesium-Zinc 4-25 tablets by Se ybold [id number] 13:56: mouth - MG oral 22 daily Externa Tablet l Cholecalcif Yes 2000U Take 1 Nettie sey bryan 4-25 capsule Seybold (Vitamin 13:56: (2,000 - D3) 50 MCG 22 units Externa (1999 [place]) total) by l oral mouth Capsule daily B Yes Take by Louisa Complex-Bio 4-25 mouth Seybold tin-FA (B 13:56: - COMPLETE 22 Externa OR) l Oxybutynin Yes 10mg Take 1 Kelse y Chloride 10 4-25 tablet (10 Se ybold MG oral 13:56: mg total) - TABLET SR 22 by mouth Head Of Business Development a 24 HR daily l Acetaminoph Yes 1{tbl} Q4H Take 1 Ke lsey en-Codeine 4-25 tablet by Seyb old #3 300-30 13:56: mouth - MG oral 22 every 4 Externa Tablet hours as l needed for pain Atorvastati 0 Yes 40mg Take 1 Sarah ey n Calcium 4-25 tablet (40 Seyb old 40 MG oral 13:56: mg total) - Tablet 22 by mouth Externa daily l Gabapentin Yes 300mg Take 1 Sarah ey 300 MG oral 4-25 capsule Seybo ld Capsule 13:56: (300 mg - 22 total) by Externa mouth 3 l times daily Metoprolol Yes 25mg Take 1 Kelse y Tartrate 4-25 tablet (25 Seybo ld (LOPRESSOR) 13:56: mg total) - 25 MG oral 22 by mouth 2 Ext martha Tablet times l daily Lisinopril Yes 5mg Take 1 Kelse y 5 MG oral 4-25 tablet (5 Seybo ld Tablet 13:56: mg total) - 22 by mouth Externa daily l Esomeprazol Yes 40mg Take 2 Sarah ey e Magnesium 4-25 capsules Seyb old 20 MG oral 13:56: (40 mg - Delayed 22 total) by Externa Release mouth l Capsule every morning (before breakfast) Calcium-Mag 0 Yes 6{tbl} Take 6 Ke lsey nesium-Zinc 4-25 tablets by Se ybold [id number] 13:56: mouth - MG oral 22 daily Externa Tablet l Cholecalcif 0 Yes 2000U Take 1 Nettie sey bryan 4-25 capsule Seybold (Vitamin 13:56: (2,000 - D3) 50 MCG 22 units Externa (1999 [place]) total) by l oral mouth Capsule daily B Yes Take by Louisa Complex-Bio 4-25 mouth Seybold tin-FA (B 13:56: - COMPLETE 22 Externa OR) l Acetaminoph Yes 1{tbl} Q4H Take 1 Ke lsey en-Codeine 4-25 tablet by Seyb old #3 300-30 13:56: mouth - MG oral 22 every 4 Externa Tablet hours as l needed for pain Atorvastati Yes 40mg Take 1 Sarah ey n Calcium 4-25 tablet (40 Seyb old 40 MG oral 13:56: mg total) - Tablet 22 by mouth Externa daily l Gabapentin 0 Yes 300mg Take 1 Sarah ey 300 MG oral 4-25 capsule Seybo ld Capsule 13:56: (300 mg - 22 total) by Externa mouth 3 l times daily Metoprolol Yes 25mg Take 1 Kelse y Tartrate 4-25 tablet (25 Seybo ld (LOPRESSOR) 13:56: mg total) - 25 MG oral 22 by mouth 2 Ext martha Tablet times l daily Lisinopril Yes 5mg Take 1 Kelse y 5 MG oral 4-25 tablet (5 Seybo ld Tablet 13:56: mg total) - 22 by mouth Externa daily l Esomeprazol Yes 40mg Take 2 Sarah ey e Magnesium 4-25 capsules Seyb old 20 MG oral 13:56: (40 mg - Delayed 22 total) by Externa Release mouth l Capsule every morning (before breakfast) Calcium-Mag Yes 6{tbl} Take 6 Ke lsey nesium-Zinc 4-25 tablets by Se ybold [id number] 13:56: mouth - MG oral 22 daily Externa Tablet l Cholecalcif Yes 2000U Take 1 Nettie sey bryan 4-25 capsule Seybold (Vitamin 13:56: (2,000 - D3) 50 MCG 22 units Externa (1999 [place]) total) by l oral mouth Capsule daily B Yes Take by Louisa Complex-Bio 4-25 mouth Seybold tin-FA (B 13:56: - COMPLETE 22 Externa OR) l Acetaminoph Yes 1{tbl} Q4H Take 1 Ke lsey en-Codeine 4-25 tablet by Seyb old #3 300-30 13:56: mouth - MG oral 22 every 4 Externa Tablet hours as l needed for pain Gabapentin Yes 300mg Take 1 Sarah ey 300 MG oral 4-25 capsule Seybo ld Capsule 13:56: (300 mg - 22 total) by Externa mouth 3 l times daily Metoprolol Yes 25mg Take 1 Kelse y Tartrate 4-25 tablet (25 Seybo ld (LOPRESSOR) 13:56: mg total) - 25 MG oral 22 by mouth 2 Ext martha Tablet times l daily Esomeprazol Yes 40mg Take 2 Sarah ey e Magnesium 4-25 capsules Seyb old 20 MG oral 13:56: (40 mg - Delayed 22 total) by Externa Release mouth l Capsule every morning (before breakfast) Trulicity Yes [id number] .75mg Inject Louisa 0.75 4-25 0.75 mg Seybold MG/0.5ML 00:00: into the - subcutaneou 00 skin once Ext martha s Solution a week l Pen-injecto r Trulicity Yes [id number] .75mg Inject Louisa 0.75 4-25 0.75 mg Seybold MG/0.5ML 00:00: into the - subcutaneou 00 skin once Ext martha s Solution a week l Pen-injecto r Doxycycline 2022- No [id number] 100mg Take 1 Louisa Hyclate 100 4-25 05-03 capsule Seyb old MG oral 00:00: 04:59 (100 mg - Capsule 00 :00 total) by Externa mouth 2 l times daily for 7 days Insulin Yes [id number] 48 units Louisa Glargine 4-24 3 sc every Seybold (Basaglar 00:00: night - KwikPen) 00 Externa 100 UNIT/ML l subcutaneou s Solution Pen-injecto r Calcium-Mag Yes 6{tbl} Take 6 Ke lsey nesium-Zinc 4-11 tablets by Se ybold [id number] 10:50: mouth - MG oral 37 daily Externa Tablet l Cholecalcif Yes 2000U Take 1 Nettie sey bryan 4-11 capsule Seybold (Vitamin 10:50: (2,000 - D3) 50 MCG 37 units Externa (1999 [place]) total) by l oral mouth Capsule daily B Yes Take by Louisa Complex-Bio 4-11 mouth Seybold tin-FA (B 10:50: - COMPLETE 37 Externa OR) l Oxybutynin Yes 10mg Take 1 Kelse y Chloride 10 4-11 tablet (10 Se ybold MG oral 10:50: mg total) - TABLET SR 37 by mouth Head Of Business Development a 24 HR daily l Acetaminoph Yes 1{tbl} Q4H Take 1 Ke lsey en-Codeine 4-11 tablet by Seyb old #3 300-30 10:50: mouth - MG oral 37 every 4 Externa Tablet hours as l needed for pain Atorvastati Yes 40mg Take 1 Sarah ey n Calcium 4-11 tablet (40 Seyb old 40 MG oral 10:50: mg total) - Tablet 37 by mouth Externa daily l Gabapentin Yes 300mg Take 1 Sarah ey 300 MG oral 4-11 capsule Seybo ld Capsule 10:50: (300 mg - 37 total) by Externa mouth 3 l times daily Metoprolol Yes 25mg Take 1 Kelse y Tartrate 4-11 tablet (25 Seybo ld (LOPRESSOR) 10:50: mg total) - 25 MG oral 37 by mouth 2 Ext martha Tablet times l daily Lisinopril Yes 5mg Take 1 Kelse y 5 MG oral 4-11 tablet (5 Seybo ld Tablet 10:50: mg total) - 37 by mouth Externa daily l Esomeprazol Yes 40mg Take 2 Sarah ey e Magnesium 4-11 capsules Seyb old 20 MG oral 10:50: (40 mg - Delayed 37 total) by Externa Release mouth l Capsule every morning (before breakfast) Insulin Yes [id number] 28 units Louisa Glargine 4-11 3 sc every Seybold (Basaglar 00:00: night - KwikPen) 00 Externa 100 UNIT/ML l subcutaneou s Solution Pen-injecto r Cefdinir 2022- No [id number] 300mg Take 1 K elsey 300 MG oral 4-11 04-25 capsule Seyb old Capsule 00:00: 00:00 (300 mg - 00 :00 total) by Externa mouth 2 l times daily for 7 days Cefdinir 0 2022- No [id number] 300mg Take 1 K elsey 300 MG oral 06-09- capsule Seyb old Capsule 00:00: 04:59 (300 mg - 00 :00 total) by Externa mouth 2 l times daily for 7 days Esomeprazol Yes 40mg Take 2 Sarah ey e Magnesium 4-04 capsules Seyb old 20 MG oral 15:35: (40 mg - Delayed 48 total) by Externa Release mouth l Capsule every morning (before breakfast) Insulin 0 Yes [id number] 20 units Louisa Glargine 4-04 3 sc every Seybold (Basaglar 00:00: night - KwikPen) 00 Externa 100 UNIT/ML l subcutaneou s Solution Pen-injecto r Benzonatate Yes [id number] 100mg Q.[id number] Take 1 Louisa (Tessalon - [id number] capsule S eybold Pallavi) 100 00:00: 3D (100 mg - MG oral 00 total) by Externa Capsule mouth 3 l times daily as needed for cough Insulin 0 2022- No [id number] 20 units Louisa Glargine -06 02-11 3 sc every Seybol d (Basaglar 00:00: 00:00 night - KwikPen) 00 :00 Externa 100 UNIT/ML l subcutaneou s Solution Pen-injecto r Benzonatate 2022- No [id number] 100mg Q.[id number] Take 1 Louisa (Tessalon -06 02-11 [id number] capsule Seybold Perles) 100 00:00: 00:00 3D (100 mg - MG oral 00 :00 total) by Externa Capsule mouth 3 l times daily as needed for cough Insulin Yes [id number] If BS is Louisa Lispro, 1 3-21 3 250 to Seybold Unit Dial, 00:00: 300, then - (HumaLOG 00 take 2 Externa KwikPen) units sc, l 100 UNIT/ML If BS is subcutaneou 301 to 350 s Solution then take Pen-injecto 4 units r sc, If BS is 351 to 400 then take 6 units sc, If BS is above 401 take 8 units sc.She is to use insulin 3 times a day with meals with above instructio n Insulin 0 Yes [id number] If BS is Louisa Lispro, 1 3-21 3 250 to Seybold Unit Dial, 00:00: 300, then - (HumaLOG 00 take 2 Externa KwikPen) units sc, l 100 UNIT/ML If BS is subcutaneou 301 to 350 s Solution then take Pen-injecto 4 units r sc, If BS is 351 to 400 then take 6 units sc, If BS is above 401 take 8 units sc.She is to use insulin 3 times a day with meals with above instructio n Insulin 0 Yes [id number] If BS is Louisa Lispro, 1 3-21 3 250 to Seybold Unit Dial, 00:00: 300, then - (HumaLOG 00 take 2 Externa KwikPen) units sc, l 100 UNIT/ML If BS is subcutaneou 301 to 350 s Solution then take Pen-injecto 4 units r sc, If BS is 351 to 400 then take 6 units sc, If BS is above 401 take 8 units sc.She is to use insulin 3 times a day with meals with above instructio n Insulin 0 Yes [id number] If BS is Louisa Lispro, 1 3-21 3 250 to Seybold Unit Dial, 00:00: 300, then - (HumaLOG 00 take 2 Externa KwikPen) units sc, l 100 UNIT/ML If BS is subcutaneou 301 to 350 s Solution then take Pen-injecto 4 units r sc, If BS is 351 to 400 then take 6 units sc, If BS is above 401 take 8 units sc.She is to use insulin 3 times a day with meals with above instructio n Insulin 2022-0 Yes [id number] If BS is Louisa Lispro, 1 3-21 3 250 to Seybold Unit Dial, 00:00: 300, then - (HumaLOG 00 take 2 Externa KwikPen) units sc, l 100 UNIT/ML If BS is subcutaneou 301 to 350 s Solution then take Pen-injecto 4 units r sc, If BS is 351 to 400 then take 6 units sc, If BS is above 401 take 8 units sc.She is to use insulin 3 times a day with meals with above instructio n Insulin Yes [id number] If BS is Louisa Lispro, 1 3-21 3 250 to Seybold Unit Dial, 00:00: 300, then - (HumaLOG 00 take 2 Externa KwikPen) units sc, l 100 UNIT/ML If BS is subcutaneou 301 to 350 s Solution then take Pen-injecto 4 units r sc, If BS is 351 to 400 then take 6 units sc, If BS is above 401 take 8 units sc.She is to use insulin 3 times a day with meals with above instructio n Insulin Yes [id number] If BS is Louisa Lispro, 1 3-21 3 250 to Seybold Unit Dial, 00:00: 300, then - (HumaLOG 00 take 2 Externa KwikPen) units sc, l 100 UNIT/ML If BS is subcutaneou 301 to 350 s Solution then take Pen-injecto 4 units r sc, If BS is 351 to 400 then take 6 units sc, If BS is above 401 take 8 units sc.She is to use insulin 3 times a day with meals with above instructio n Insulin Yes [id number] If BS is Louisa Lispro, 1 3-21 3 250 to Seybold Unit Dial, 00:00: 300, then - (HumaLOG 00 take 2 Externa KwikPen) units sc, l 100 UNIT/ML If BS is subcutaneou 301 to 350 s Solution then take Pen-injecto 4 units r sc, If BS is 351 to 400 then take 6 units sc, If BS is above 401 take 8 units sc.She is to use insulin 3 times a day with meals with above instructio n Insulin Yes [id number] If BS is Louisa Lispro, 1 3-21 3 250 to Seybold Unit Dial, 00:00: 300, then - (HumaLOG 00 take 2 Externa KwikPen) units sc, l 100 UNIT/ML If BS is subcutaneou 301 to 350 s Solution then take Pen-injecto 4 units r sc, If BS is 351 to 400 then take 6 units sc, If BS is above 401 take 8 units sc.She is to use insulin 3 times a day with meals with above instructio n Insulin 2022- No [id number] If BS is Louisa Lispro, 1 3-21 10-05 3 250 to Seybold Unit Dial, 00:00: 00:00 300, then - (HumaLOG 00 :00 take 2 Externa KwikPen) units sc, l 100 UNIT/ML If BS is subcutaneou 301 to 350 s Solution then take Pen-injecto 4 units r sc, If BS is 351 to 400 then take 6 units sc, If BS is above 401 take 8 units sc.She is to use insulin 3 times a day with meals with above instructio n Insulin 2022- No [id number] 10 units Louisa Glargine 3-20 04-04 3 sc every Seybol d (Basaglar 00:00: 00:00 night - KwikPen) 00 :00 Externa 100 UNIT/ML l subcutaneou s Solution Pen-injecto r Lisinopril 2022-0 Yes 5mg Take 5 mg Ke lsey 5 MG oral 3-17 by mouth Seybol d Tablet 14:06: daily - 28 Externa l Lisinopril 2022-0 Yes 5mg Take 5 mg Ke lsey 5 MG oral 3-17 by mouth Seybol d Tablet 14:06: daily - 28 Externa l Calcium-Mag 2022-0 Yes 6{tbl} Take 6 Ke lsey nesium-Zinc 3-17 tablets by Se ochoa [id number] 13:55: mouth - MG oral 27 daily Externa Tablet l Cholecalcif 2022-0 Yes 2000U Take 2,000 Louisa bryan 3-17 units by Amy (Vitamin 13:55: mouth - D3) 50 MCG 27 daily Externa (1999 UT) l oral Capsule B 0 Yes Take by Louisa Complex-Bio 3-17 mouth Amy tin-FA (B 13:55: - COMPLETE 27 Externa OR) l Oxybutynin 2022-0 Yes 10mg Take 10 mg K elsey Chloride 10 3-17 by mouth yb old MG oral 13:55: daily - TABLET SR 27 Externa 24 HR l Acetaminoph 2022-0 Yes 1{tbl} Q4H Take 1 Ke lsey en-Codeine 3-17 tablet by Prisca old #3 300-30 13:55: mouth - MG oral 27 every 4 Externa Tablet hours as l needed for pain Atorvastati 0 Yes 40mg Take 40 mg Louisa n Calcium 3-17 by mouth Seybol d 40 MG oral 13:55: daily - Tablet 27 Externa l Gabapentin 2022-0 Yes 300mg Take 300 Ke lsey 300 MG oral 3-17 mg by Seybold Capsule 13:55: mouth 3 - 27 times Externa daily l Metoprolol 0 Yes 25mg Take 25 mg K elsey Tartrate 3-17 by mouth 2 Seybo ld (LOPRESSOR) 13:55: times - 25 MG oral 27 daily Externa Tablet l Calcium-Mag 0 Yes 6{tbl} Take 6 Ke lsey nesium-Zinc 3-17 tablets by Se ybold [id number] 13:55: mouth - MG oral 27 daily Externa Tablet l Cholecalcif 0 Yes 1999U Take 2,000 Louisa bryan 3-17 units by Seybold (Vitamin 13:55: mouth - D3) 50 MCG 27 daily Externa (1999) l oral Capsule B Yes Take by Louisa Complex-Bio 3-17 mouth Seybold tin-FA (B 13:55: - COMPLETE 27 Externa OR) l Oxybutynin 0 Yes 10mg Take 10 mg K elsey Chloride 10 3-17 by mouth Seyb old MG oral 13:55: daily - TABLET SR 27 Externa 24 HR l Acetaminoph 0 Yes 1{tbl} Q4H Take 1 Ke lsey en-Codeine 3-17 tablet by Seyb old #3 300-30 13:55: mouth - MG oral 27 every 4 Externa Tablet hours as l needed for pain Atorvastati 0 Yes 40mg Take 40 mg Louisa n Calcium 3-17 by mouth Seybol d 40 MG oral 13:55: daily - Tablet 27 Externa l Gabapentin 2022-0 Yes 300mg Take 300 Ke lsey 300 MG oral 3-17 mg by Seybold Capsule 13:55: mouth 3 - 27 times Externa daily l Metoprolol 2022-0 Yes 25mg Take 25 mg K elsey Tartrate 3-17 by mouth 2 Seybo ld (LOPRESSOR) 13:55: times - 25 MG oral 27 daily Externa Tablet l Continuous Yes [id number] Check BS Louisa Blood Gluc 3-17 3 twice Seybold [employer] Supervisor 00:00: daily - (FreeStyle 00 Externa Soumya 2 l [place]) does not apply Device Continuous 0 Yes [id number] Check BS Louisa Blood Gluc 3-17 3 twice Seybold Sensor 00:00: daily - (FreeStyle 00 Externa Soumya 2 l Sensor) does not apply Misc Continuous 2022-0 Yes [id number] Check BS Louisa Blood Gluc 3-17 3 twice Seybold [employer] Supervisor 00:00: daily - (FreeStyle 00 Externa Soumya 2 l [place]) does not apply Device Continuous 2022-0 Yes [id number] Check BS Louisa Blood Gluc 3-17 3 twice Seybold Sensor 00:00: daily - (FreeStyle 00 Externa Soumya 2 l Sensor) does not apply Misc Continuous 0 Yes [id number] Check BS Louis[place] Blood Gluc 3-17 3 twice Seybold [employer] Supervisor 00:00: daily - (FreeStyle 00 Externa Soumya 2 l [place]) does not apply Device Continuous 0 Yes [id number] Check BS Louisa Blood Gluc 3-17 3 twice Seybold Sensor 00:00: daily - (FreeStyle 00 Externa Soumya 2 l Sensor) does not apply Misc Continuous 0 Yes [id number] Check BS Louis[place] Blood Gluc 3-17 3 twice Seybold [employer] Supervisor 00:00: daily - (FreeStyle 00 Externa Soumya 2 l [place]) does not apply Device Continuous 2022-0 Yes [id number] Check BS Louis[place] Blood Gluc 3-17 3 twice Seybold Sensor 00:00: daily - (FreeStyle 00 Externa Soumya 2 l Sensor) does not apply Misc Continuous 2022-0 Yes [id number] Check BS Louisa Blood Gluc 3-17 3 twice Seybold [employer] Super[employer] 00:00: daily - (FreeStyle 00 Externa Soumya 2 l [place]) does not apply Device Continuous 2022-0 Yes [id number] Check BS Louis[place] Blood Gluc 3-17 3 twice Seybold [employer] Supervisor 00:00: daily - (FreeStyle 00 Externa Soumya 2 l [place]) does not apply Device Continuous 2022-0 Yes [id number] Check BS Louis[place] Blood Gluc 3-17 3 twice Seybold [employer] Super[employer] 00:00: daily - (FreeStyle 00 Externa Soumya 2 l [place]) does not apply Device Continuous Yes [id number] Check BS Louis[place] Blood Gluc 3-17 3 twice Seybold [employer] Supervisor 00:00: daily - (FreeStyle 00 Externa Soumya 2 l [place]) does not apply Device Continuous Yes [id number] Check BS Louis[place] Blood Gluc 3-17 3 twice Seybold [employer] Supervisor 00:00: daily - (FreeStyle 00 Externa Soumya 2 l [place]) does not apply Device Continuous Yes [id number] Check BS [place] Blood Gluc 3-17 3 twice Seybold [employer] 00:00: daily - (FreeStyle 00 Externa Soumy[place] 2 l [place]) does not apply Device Insulin Yes [id number] 10U Inject 10 [place] Glargine 3-17 3 units into Seybo ld (Lantus 00:00: the skin - SoloStar) 00 at bedtime Exte rna 100 UNIT/ML l subcutaneou s Solution Pen-injecto r Insulin Yes [id number] If BS is [place] Aspart 3-17 3 250 to Seybold (NovoLOG 00:00: 300, then - FlexPen 00 take 2 Externa ReliOn) 100 units sc, l UNIT/ML If BS is subcutaneou 301 to 350 s Solution then take Pen-injecto 4 units r sc, If BS is 351 to 400 then take 6 units sc, If BS is above 401 take 8 units sc. Continuous Yes [id number] Check BS [place] Blood Gluc 3-17 3 twice Seybold [employer] Super[employer] 00:00: daily - (FreeStyle 00 Externa Soumya 2 l [place]) does not apply Device Continuous Yes [id number] Check BS [place] Blood Gluc 3-17 3 twice Seybold Sensor 00:00: daily - (FreeStyle 00 Externa Soumya 2 l [place]) does not apply Misc Lisinopril 2022- No 5mg Take 5 mg K elsey 5 MG oral 2-28 -28 by mouth Seybo ld Tablet 15:39: 00:00 daily - 19 :00 Externa l Gabapentin Yes 300mg Take 300 Ke lsey 300 MG oral 2-28 mg by Seybold Capsule 15:13: mouth 3 - 06 times Externa daily l Metoprolol 0 Yes 25mg Take 25 mg K elsey Tartrate 2-28 by mouth 2 Seybo ld (LOPRESSOR) 15:13: times - 25 MG oral 06 daily Externa Tablet l Calcium-Mag 0 Yes 6{tbl} Take 6 Ke lsey nesium-Zinc 2-28 tablets by Se ybold [id number] 15:11: mouth - MG oral 43 daily Externa Tablet l Cholecalcif 0 Yes 1999U Take 2,000 [place] bryan 2-28 units by [place] (Vitamin 15:11: mouth - D3) 50 MCG 43 daily Externa (1999) l oral Capsule B Yes Take by [place] Complex-Bio 2-28 mouth ybold tin-FA (B 15:11: - COMPLETE 43 Externa OR) l Oxybutynin Yes 10mg Take 10 mg K elsey Chloride 10 2-28 by mouth Seyb old MG oral 15:11: daily - TABLET SR 43 Externa 24 HR l Acetaminoph 0 Yes 1{tbl} Q4H Take 1 Ke lsey en-Codeine 2-28 tablet by Seyb old #3 300-30 15:11: mouth - MG oral 43 every 4 Externa Tablet hours as l needed for pain Atorvastati Yes 40mg Take 40 mg [place] n Calcium 2-28 by mouth Seybol d 40 MG oral 15:11: daily - Tablet 43 Externa l FLUTICASONE 0 Yes [id number] 50ug Use 1 K elsey PROPIONATE, 2-28 spray (50 Sey bold NASAL, 50 00:00: mcg total) - MCG/ACT 00 in each Externa nasal nostril l Suspension daily Cetirizine Yes [id number] 10mg Take 1 K elsey HCl (ZyrTEC 2-28 capsule Seybo ld Allergy) 10 00:00: (10 mg - MG oral 00 total) by Externa Capsule mouth l daily FLUTICASONE 0 Yes [id number] 50ug Use 1 K elsey PROPIONATE, 2-28 spray (50 Sey bold NASAL, 50 00:00: mcg total) - MCG/ACT 00 in each Externa nasal nostril l Suspension daily Cetirizine 2022-0 Yes [id number] 10mg Take 1 K elsey HCl (ZyrTEC 2-28 capsule Seybo ld Allergy) 10 00:00: (10 mg - MG oral 00 total) by Externa Capsule mouth l daily FLUTICASONE 2022-0 Yes [id number] 50ug Use 1 K elsey PROPIONATE, 2-28 spray (50 Sey bold NASAL, 50 00:00: mcg total) - MCG/ACT 00 in each Externa nasal nostril l Suspension daily Cetirizine 2022-0 Yes [id number] 10mg Take 1 K elsey HCl (ZyrTEC 2-28 capsule Seybo ld Allergy) 10 00:00: (10 mg - MG oral 00 total) by Externa Capsule mouth l daily Cetirizine 2022-0 Yes [id number] 10mg Take 1 K elsey HCl (ZyrTEC 2-28 capsule Seybo ld Allergy) 10 00:00: (10 mg - MG oral 00 total) by Externa Capsule mouth l daily Cetirizine 3-0 Yes [id number] 10mg Take 1 K elsey HCl (ZyrTEC 2-28 capsule Seybo ld Allergy) 10 00:00: (10 mg - MG oral 00 total) by Externa Capsule mouth l daily Cetirizine 3-0 Yes [id number] 10mg Take 1 K elsey HCl (ZyrTEC 2-28 capsule Seybo ld Allergy) 10 00:00: (10 mg - MG oral 00 total) by Externa Capsule mouth l daily Cetirizine 3-0 Yes [id number] 10mg Take 1 K elsey HCl (ZyrTEC 2-28 capsule Seybo ld Allergy) 10 00:00: (10 mg - MG oral 00 total) by Externa Capsule mouth l daily Cetirizine 3-0 Yes [id number] 10mg Take 1 K elsey HCl (ZyrTEC 2-28 capsule Seybo ld Allergy) 10 00:00: (10 mg - MG oral 00 total) by Externa Capsule mouth l daily Cetirizine 3-0 Yes [id number] 10mg Take 1 K elsey HCl (ZyrTEC 2-28 capsule Seybo ld Allergy) 10 00:00: (10 mg - MG oral 00 total) by Externa Capsule mouth l daily Cetirizine 2022-0 Yes [id number] 10mg Take 1 K elsey HCl (ZyrTEC 2-28 capsule Seybo ld Allergy) 10 00:00: (10 mg - MG oral 00 total) by Externa Capsule mouth l daily FLUTICASONE 2022-0 Yes [id number] 50ug Use 1 K elsey PROPIONATE, 2-28 spray (50 Sey bold NASAL, 50 00:00: mcg total) - MCG/ACT 00 in each Externa nasal nostril l Suspension daily Cetirizine 2022-0 Yes [id number] 10mg Take 1 K elsey HCl (ZyrTEC 2-28 capsule Seybo ld Allergy) 10 00:00: (10 mg - MG oral 00 total) by Externa Capsule mouth l daily FLUTICASONE 2022-0 Yes [id number] 50ug Use 1 K elsey PROPIONATE, 2-28 spray (50 Sey bold NASAL, 50 00:00: mcg total) - MCG/ACT 00 in each Externa nasal nostril l Suspension daily Cetirizine 2022-0 Yes [id number] 10mg Take 1 K elsey HCl (ZyrTEC 2-28 capsule [place] ld Allergy) 10 00:00: (10 mg - MG oral total) by Externa Capsule mouth l daily Fluconazole 2022-2022- No [id number] 150mg Take 1 [place] 150 MG oral -26 05-17 tablet Seybo ld Tablet 00:00: 00:00 (150 mg - 00 :00 total) by Externa mouth once l for 1 dose Fluconazole 2022-2022- No Kelse y 150 MG oral -26 05-17 Seybold Tablet 00:00: 00:00 - 00 :00 Externa l Fluconazole 2022-0 2022- No [id number] 150mg Take 1 [place] 150 MG oral -26 05- tablet Seybo ld Tablet 00:00: 05:59 (150 mg - 00 :00 total) by Externa mouth once l for 1 dose Lisinopril 2022-0 Yes 5mg Take 5 mg Ke lsey 5 MG oral 1-18 by mouth Seybol d Tablet 15:01: daily - 10 Externa l Cefdinir 2022-0 2022- No 300mg Take 1 Kelse y 300 MG oral 03-18 capsule Seyb old Capsule 00:00: 00:00 (300 mg - 00 :00 total) by Externa mouth 2 l times daily for 10 days Benzonatate 2022-0 202- No 100mg Q.[id number] Take 1-2 [place] (Tessalon 03-18 [id number] capsules Seybold Perles) 100 00:00: 00:00 3D (100-200 - MG oral 00 :00 mg total) Externa Capsule by mouth 3 l times daily as needed for cough for up to 7 days Cefdinir 2022-2022- No 300mg Take 1 Kelse y 300 MG oral 03-18 capsule Seyb old Capsule 00:00: 05:59 (300 mg - 00 :00 total) by Externa mouth 2 l times daily for 10 days Benzonatate 2022- No 100mg Q.[id number] Take 1-2 [place] (Tessalon 03-18 [id number] capsules Seybold Perles) 100 00:00: 05:59 3D (100-200 - MG oral 00 :00 mg total) Externa Capsule by mouth 3 l times daily as needed for cough for up to 7 days Cefdinir 2022-0 2022- No 300mg Take 1 Kelse y 300 MG oral 03-18 capsule Seyb old Capsule 00:00: 05:59 (300 mg - 00 :00 total) by Externa mouth 2 l times daily for 10 days Benzonatate 2022-2022- No 100mg Q.[id number] Take 1-2 [place] (Tessalon 03-18 [id number] capsules Seybold Perles) 100 00:00: 05:59 3D (100-200 - MG oral 00 :00 mg total) Externa Capsule by mouth 3 l times daily as needed for cough for up to 7 days Doxycycline 2022-0 202- No Kelse y Hyclate 100 1-12 30-18 Seybold MG oral 00:00: 00:00 - Tablet 00 :00 Externa l ondansetron 2021-03- No 4mg Take [address] [facility] (ZOFRAN) 4 2- 12-19 tablet (4 [place] es MG tablet 00:00: 23:59 mg total) Me dical 00 :00 by mouth Center every 6 (six) hours for 10 days. cephalexin 2021-03- No 500mg Q.25D Take [address] [facility] (KEFLEX) 04-09 [facility] 500 MG 00:00: 23:59 (500 mg Medical capsule 00 :00 total) by Center mouth 4 (four) times daily for 10 days. ondansetron 2021-03- No 4mg Take [address] [facility] (ZOFRAN) 4 04-09 tablet (4 [place] es MG tablet 00:00: 23:59 mg total) Me dical 00 :00 by mouth Center every 6 (six) hours for 10 days. cephalexin 2021-03- No 500mg Q.25D Take [address] [facility] [address] [facility] (KEFLEX) 04-09 [facility] 500 MG 00:00: 23:59 (500 mg Medical capsule 00 :00 total) by Center mouth 4 (four) times daily for 10 days. ondansetron 2021-03- No 4mg Take [address] [facility] (ZOFRAN) 4 04-09 tablet (4 [place] es MG tablet 00:00: 23:59 mg total) Me dical 00 :00 by mouth Center every 6 (six) hours for 10 days. cephalexin 2021-03- No 500mg Q.25D Take [address] [facility] [address] [facility] (KEFLEX) 04-09 [facility] 500 MG 00:00: 23:59 (500 mg Medical capsule 00 :00 total) by Center mouth 4 (four) times daily for 10 days. ondansetron 2021-03- No 4mg Take [address] [facility] (ZOFRAN) 4 04-09 tablet (4 [place] es MG tablet 00:00: 23:59 mg total) Me dical 00 :00 by mouth Center every 6 (six) hours for 10 days. cephalexin 2021-03- No 500mg Q.25D Take [address] [facility] [address] [facility] (KEFLEX) 04-09 [facility] 500 MG 00:00: 23:59 (500 mg Medical capsule 00 :00 total) by Center mouth 4 (four) times daily for 10 days. ondansetron 2021-03- No 4mg Take [address] [facility] (ZOFRAN) 4 04-09 tablet (4 [place] es MG tablet 00:00: 23:59 mg total) Me dical 00 :00 by mouth Center every 6 (six) hours for 10 days. cephalexin 2021-03- No 500mg Q.25D Take [address] [facility] [address] [facility] (KEFLEX) 04-09 [facility] 500 MG 00:00: 23:59 (500 mg Medical capsule 00 :00 total) by Center mouth 4 (four) times daily for 10 days. ondansetron 2021-03- No 4mg Take [address] [facility] (ZOFRAN) 4 04-09 tablet (4 [place] es MG tablet 00:00: 23:59 mg total) Me dical 00 :00 by mouth Center every 6 (six) hours for 10 days. cephalexin 2021-03- No 500mg Q.25D Take [address] [facility] [address] [facility] (KEFLEX) 04-09 [facility] 500 MG 00:00: 23:59 (500 mg Medical capsule 00 :00 total) by Center mouth 4 (four) times daily for 10 days. ondansetron 2021-03- No 4mg Take [address] [facility] (ZOFRAN) 4 04-09 tablet (4 [place] es MG tablet 00:00: 23:59 mg total) Me dical 00 :00 by mouth Center every 6 (six) hours for 10 days. cephalexin 2021-03- No 500mg Q.25D Take [address] [facility] [address] [facility] (KEFLEX) 04-09 [facility] 500 MG 00:00: 23:59 (500 mg Medical capsule 00 :00 total) by Center mouth 4 (four) times daily for 10 days. cephalexin 2021-03- No 500mg Q.25D Take [address] [facility] (KEFLEX) 04-09 [facility] 500 MG 00:00: 00:00 (500 mg Medical capsule 00 :00 total) by Center mouth 4 (four) times daily for 10 days. cephalexin 2021-03- No 500mg Q.25D Take [address] [facility] (KEFLEX) 04-09 [facility] 500 MG 00:00: 00:00 (500 mg Medical capsule 00 :00 total) by Center mouth 4 (four) times daily for 10 days. cephalexin 2021-03- No 500mg Q.25D Take [address] [facility] [address] [facility] (KEFLEX) 04-09 [facility] 500 MG 00:00: 00:00 (500 mg Medical capsule 00 :00 total) by Center mouth 4 (four) times daily for 10 days. cephalexin 2021-03- No 500mg Q.25D Take [address] [facility] [address] [facility] (KEFLEX) 04-09 [facility] 500 MG 00:00: 00:00 (500 mg Medical capsule 00 :00 total) by Center mouth 4 (four) times daily for 10 days. cephalexin 2021-03- No 500mg Q.25D Take [address] [facility] (KEFLEX) 04-09 [facility] 500 MG 00:00: 00:00 (500 mg Medical capsule 00 :00 total) by Center mouth 4 (four) times daily for 10 days. cephalexin 2021-03- No 500mg Q.25D Take [address] [facility] (KEFLEX) 04-09 [facility] 500 MG 00:00: 00:00 (500 mg Medical capsule 00 :00 total) by Center mouth 4 (four) times daily for 10 days. cephalexin 2021-03- No 500mg Q.25D Take [address] [facility] (KEFLEX) 04-09 [facility] 500 MG 00:00: 00:00 (500 mg Medical capsule 00 :00 total) by Center mouth 4 (four) times daily for 10 days. cephalexin 2021-03- No 500mg Q.25D Take [address] [facility] (KEFLEX) 04-09 [facility] 500 MG 00:00: 00:00 (500 mg Medical capsule 00 :00 total) by Center mouth 4 (four) times daily for 10 days. cephalexin 2021-03- No 500mg Q.25D Take [address] [facility] [address] [facility] (KEFLEX) 04-09 [facility] 500 MG 00:00: 00:00 (500 mg Medical capsule 00 :00 total) by Center mouth 4 (four) times daily for 10 days. cephalexin 2021-03- No 500mg Q.25D Take [address] [facility] [address] [facility] (KEFLEX) 04-09 [facility] 500 MG 00:00: 00:00 (500 mg Medical capsule 00 :00 total) by Center mouth 4 (four) times daily for 10 days. cephalexin 2021-03- No 500mg Q.25D Take [address] [facility] (KEFLEX) 04-09 [facility] 500 MG 00:00: 00:00 (500 mg Medical capsule 00 :00 total) by Center mouth 4 (four) times daily for 10 days. cephalexin 2021-03- No 500mg Q.25D Take [address] [facility] (KEFLEX) 04-09 [facility] 500 MG 00:00: 00:00 (500 mg Medical capsule 00 :00 total) by Center mouth 4 (four) times daily for 10 days. cephalexin 2021-03- No 500mg Q.25D Take [address] [facility] [address] [facility] (KEFLEX) 04-09 [facility] 500 MG 00:00: 00:00 (500 mg Medical capsule 00 :00 total) by Center mouth 4 (four) times daily for 10 days. cephalexin 2021-03- No 500mg Q.25D Take [address] [facility] [address] [facility] (KEFLEX) 04-09 [facility] 500 MG 00:00: 00:00 (500 mg Medical capsule 00 :00 total) by Center mouth 4 (four) times daily for 10 days. Metoprolol Yes 1{tbl} Take 1 Nettie sey Tartrate 25 8-29 tablet by Sey bold MG oral 00:00: mouth 2 - Tablet 00 times Externa daily l Metoprolol 2022- No 1{tbl} Take 1 Ke lsey Tartrate 25 8-29 02-28 tablet by Se ybold MG oral 00:00: 00:00 mouth 2 - Tablet 00 :00 times Externa daily l glipiZIDE Yes 1{tbl} Take 1 Sarah ey 10 MG oral 5-05 tablet by Seyb old Tablet 00:00: mouth 2 - 00 times Externa daily l glipiZIDE Yes 1{tbl} Take 1 Sarah ey 10 MG oral 5-05 tablet by Seyb old Tablet 00:00: mouth 2 - 00 times Externa daily l glipiZIDE 2021-3- No 1{tbl} Take 1 Nettie sey 10 MG oral 5-05 03-17 tablet by Sey bold Tablet 00:00: 00:00 mouth 2 - 00 :00 times Externa daily l metoprolol Yes 25mg Q.5D Take [address] [facility] (LOPRESSOR) 6-15 by mouth 2 Светлана kes 25 MG 14:30: (two) Medical tablet 51 times Center daily. lisinopril Yes 5mg QD Take [address] [facility] (PRINIVIL,Z 6-15 by mouth Luke s ESTRIL) 5 14:30: daily. Medica l MG tablet 51 [place] aspirin 81 0 Yes 81mg QD Take [address] MG EC 6-15 by mouth [facility] tablet 14:30: daily. Medical [address] [place] [address] atorvastati Yes 40mg QD Take [address] [facility] (LIPITOR) 6-15 by mouth Luke s 80 MG 14:30: daily . Medical tablet 51 [place] ascorbic Yes 1000mg QD Take 1,[address] acid, 6-15 mg by [facility] vitamin C, 14:30: mouth Medica l (VITAMIN C) 51 daily. Center 1000 MG tablet multivitami Yes 1{capsu QD Take [address] n capsule 6-15 le} capsule by Luke s 14:30: mouth Medical 51 daily. [place] glimepiride Yes 4mg Q.5D Take [address] [facility] (AMARYL) 4 6-15 by mouth 2 [place] es MG tablet 14:30: (two) Medical 51 times Center daily. oxybutynin Yes bladder 10mg Q.5D Take [address] [facility] (DITROPAN) 6-15 hyperactivi by mouth 2 [facility] 5 MG tablet 14:30: ty (two) Medic al 51 times Center daily. gabapentin Yes 300mg Q.[id number] Take [address] [facility] (NEURONTIN) 6-15 [id number] mg by L ukes 300 MG 14:30: 3D mouth 3 Medical capsule 51 (three) Center times daily. metoprolol 2021-0 Yes 25mg Q.5D Take [address] (LOPRESSOR) 6-15 by mouth 2 Светлана kes 25 MG 14:30: (two) Medical tablet 51 times Center daily. lisinopril 0 Yes 5mg QD Take [address] [facility] [address] [facility] (PRINIVIL,Z 6-15 by mouth Luke s ESTRIL) 5 14:30: daily. Medica l MG tablet 51 Center aspirin 81 0 Yes 81mg QD Take [address] MG EC 6-15 by mouth [facility] tablet 14:30: daily. Medical 51 [facility] atorvastati 0 Yes 40mg QD Take [address] [facility] (LIPITOR) 6-15 by mouth Luke s 80 MG 14:30: daily . Medical tablet 51 Center ascorbic 0 Yes 1000mg QD Take 1,[address] acid, 6-15 mg by [facility] vitamin C, 14:30: mouth Medica l (VITAMIN C) 51 daily. Center 1000 MG tablet multivitami Yes 1{capsu QD Take [address] n capsule 6-15 le} capsule by Luke s 14:30: mouth Medical 51 daily. [place] glimepiride 0 Yes 4mg Q.5D Take [address] [facility] (AMARYL) 4 6-15 by mouth 2 [place] es MG tablet 14:30: (two) Medical 51 times Center daily. oxybutynin Yes bladder 10mg Q.5D Take [address] [facility] (DITROPAN) 6-15 hyperactivi by mouth 2 [facility] 5 MG tablet 14:30: ty (two) Medic al 51 times Center daily. gabapentin 0 Yes 300mg Q.[id number] Take [address] [facility] (NEURONTIN) 6-15 [id number] mg by L ukes 300 MG 14:30: 3D mouth 3 Medical capsule 51 (three) Center times daily. metoprolol 2020-0 Yes 25mg Q.5D Take [address] (LOPRESSOR) 6-15 by mouth 2 Светлана kes 25 MG 14:30: (two) Medical tablet 51 times Center daily. lisinopril 0 Yes 5mg QD Take [address] [facility] [address] [facility] (PRINIVIL,Z 6-15 by mouth Luke s ESTRIL) 5 14:30: daily. Medica l MG tablet 51 [place] aspirin 81 0 Yes 81mg QD Take [address] MG EC 6-15 by mouth [facility] tablet 14:30: daily. [address] atorvastati 0 Yes 40mg QD Take [address] [facility] (LIPITOR) 6-15 by mouth Luke s 80 MG 14:30: daily . Medical tablet 51 [place] ascorbic Yes 1000mg QD Take 1,[address] acid, 6-15 mg by [facility] vitamin C, 14:30: mouth Medica l (VITAMIN C) 51 daily. Center 1000 MG tablet multivitami Yes 1{capsu QD Take [address] n capsule 6-15 le} capsule by Luke s 14:30: mouth Medical 51 daily. [place] glimepiride Yes 4mg Q.5D Take [address] (AMARYL) 4 6-15 by mouth 2 [place] es MG tablet 14:30: (two) Medical 51 times Center daily. oxybutynin Yes bladder 10mg Q.5D Take [address] [facility] (DITROPAN) 6-15 hyperactivi by mouth 2 [facility] 5 MG tablet 14:30: ty (two) Medic al 51 times Center daily. gabapentin Yes 300mg Q.[id number] Take [address] [facility] (NEURONTIN) 6-15 [id number] mg by L ukes 300 MG 14:30: 3D mouth 3 Medical capsule 51 (three) Center times daily. metoprolol Yes 25mg Q.5D Take [address] (LOPRESSOR) 6-15 by mouth 2 Светлана kes 25 MG 14:30: (two) Medical tablet 51 times Center daily. lisinopril 0 Yes 5mg QD Take [address] [facility] [address] [facility] (PRINIVIL,Z 6-15 by mouth Luke s ESTRIL) 5 14:30: daily. Medica l MG tablet 51 Center aspirin 81 0 Yes 81mg QD Take [address] MG EC 6-15 by mouth [facility] tablet 14:30: daily. [address] atorvastati 0 Yes 40mg QD Take [address] [facility] (LIPITOR) 6-15 by mouth Luke s 80 MG 14:30: daily . Medical tablet 51 [place] ascorbic Yes 1000mg QD Take 1,[address] acid, 6-15 mg by [facility] vitamin C, 14:30: mouth Medica l (VITAMIN C) 51 daily. [place] 1000 MG tablet multivitami Yes 1{capsu QD Take [address] n capsule 6-15 le} capsule by Luke s 14:30: mouth Medical 51 daily. [place] glimepiride Yes 4mg Q.5D Take [address] [facility] (AMARYL) 4 6-15 by mouth 2 [place] es MG tablet 14:30: (two) Medical 51 times Center daily. oxybutynin Yes bladder 10mg Q.5D Take [address] [facility] (DITROPAN) 6-15 hyperactivi by mouth 2 [facility] 5 MG tablet 14:30: ty (two) Medic al 51 times Center daily. gabapentin Yes 300mg Q.[id number] Take [address] [facility] (NEURONTIN) 6-15 [id number] mg by L ukes 300 MG 14:30: 3D mouth 3 Medical capsule 51 (three) Center times daily. metoprolol Yes 25mg Q.5D Take [address] (LOPRESSOR) 6-15 by mouth 2 Светлана kes 25 MG 14:30: (two) Medical tablet 51 times Center daily. lisinopril Yes 5mg QD Take [address] [facility] [address] [facility] (PRINIVIL,Z 6-15 by mouth Luke s ESTRIL) 5 14:30: daily. Medica l MG tablet [address] [place] [address] aspirin 81 Yes 81mg QD Take [address] MG EC 6-15 by mouth [facility] tablet 14:30: daily. [address] atorvastati Yes 40mg QD Take [address] [facility] (LIPITOR) 6-15 by mouth Luke s 80 MG 14:30: daily . Medical tablet 51 [place] ascorbic Yes 1000mg QD Take 1,[address] acid, 6-15 mg by [facility] vitamin C, 14:30: mouth Medica l (VITAMIN C) 51 daily. [place] 1000 MG tablet multivitami Yes 1{capsu QD Take [address] n capsule 6-15 le} capsule by Luke s 14:30: mouth Medical 51 daily. [place] glimepiride Yes 4mg Q.5D Take [address] (AMARYL) 4 6-15 by mouth 2 [place] es MG tablet 14:30: (two) Medical 51 times Center daily. oxybutynin Yes bladder 10mg Q.5D Take [address] [facility] (DITROPAN) 6-15 hyperactivi by mouth 2 [facility] 5 MG tablet 14:30: ty (two) Medic al 51 times Center daily. gabapentin Yes 300mg Q.[id number] Take [address] [facility] (NEURONTIN) 6-15 [id number] mg by L ukes 300 MG 14:30: 3D mouth 3 Medical capsule 51 (three) Center times daily. metoprolol Yes 25mg Q.5D Take [address] (LOPRESSOR) 6-15 by mouth 2 Светлана kes 25 MG 14:30: (two) Medical tablet 51 times Center daily. lisinopril Yes 5mg QD Take [address] [facility] [address] [facility] (PRINIVIL,Z 6-15 by mouth Luke s ESTRIL) 5 14:30: daily. Medica l MG tablet [address] [place] [address] aspirin 81 Yes 81mg QD Take [address] MG EC 6-15 by mouth [facility] tablet 14:30: daily. [address] atorvastati Yes 40mg QD Take [address] [facility] (LIPITOR) 6-15 by mouth Luke s 80 MG 14:30: daily . Medical tablet 51 [place] ascorbic Yes 1000mg QD Take 1,[address] acid, 6-15 mg by [facility] vitamin C, 14:30: mouth Medica l (VITAMIN C) 51 daily. [place] 1000 MG tablet multivitami Yes 1{capsu QD Take [address] n capsule 6-15 le} capsule by Luke s 14:30: mouth Medical 51 daily. [place] glimepiride Yes 4mg Q.5D Take [address] (AMARYL) 4 6-15 by mouth 2 [place] es MG tablet 14:30: (two) Medical 51 times Center daily. oxybutynin Yes bladder 10mg Q.5D Take [address] [facility] (DITROPAN) 6-15 hyperactivi by mouth 2 [facility] 5 MG tablet 14:30: ty (two) Medic al 51 times Center daily. gabapentin Yes 300mg Q.[id number] Take [address] [facility] (NEURONTIN) 6-15 [id number] mg by L ukes 300 MG 14:30: 3D mouth 3 Medical capsule 51 (three) Center times daily. metoprolol Yes 25mg Q.5D Take [address] (LOPRESSOR) 6-15 by mouth 2 Светлана kes 25 MG 14:30: (two) Medical tablet 51 times Center daily. lisinopril Yes 5mg QD Take [address] [facility] [address] [facility] (PRINIVIL,Z 6-15 by mouth Luke s ESTRIL) 5 14:30: daily. Medica l MG tablet 51 Center aspirin 81 0 Yes 81mg QD Take [address] MG EC 6-15 by mouth [facility] tablet 14:30: daily. Medical Center atorvastati Yes 40mg QD Take [address] [facility] (LIPITOR) 6-15 by mouth Luke s 80 MG 14:30: daily . Medical tablet 51 Center ascorbic 0 Yes 1000mg QD Take 1,[address] acid, 6-15 mg by [facility] vitamin C, 14:30: mouth Medica l (VITAMIN C) 51 daily. Center 1000 MG tablet multivitami Yes 1{capsu QD Take [address] n capsule 6-15 le} capsule by Luke s 14:30: mouth Medical 51 daily. Center glimepiride 0 Yes 4mg Q.5D Take [address] (AMARYL) 4 6-15 by mouth 2 Ysabel es MG tablet 14:30: (two) Medical 51 times Center daily. oxybutynin Yes bladder 10mg Q.5D Take [address] [facility] (DITROPAN) 6-15 hyperactivi by mouth 2 [facility] 5 MG tablet 14:30: ty (two) Medic al 51 times Center daily. gabapentin Yes 300mg Q.[id number] Take [address] [facility] (NEURONTIN) 6-15 [id number] mg by L ukes 300 MG 14:30: 3D mouth 3 Medical capsule 51 (three) Center times daily. Immunizations Ordered Filled Immunization Date Status Comments [facility] e Immunization Name Name Influenza, 2019-05-13 Completed Louisa Reyes Seasonal, 00:00:00 - External Injectable Influenza, 2019-05-13 Completed Louisa Reyes Seasonal, 00:00:00 - External Injectable Influenza, 2019-05-13 Completed Louisa Reyes Seasonal, 00:00:00 - External Injectable Influenza, 2019-05-13 Completed Louisa Reyes Seasonal, 00:00:00 - External Injectable Influenza, 2019-05-13 Completed Louisa Reyes Seasonal, 00:00:00 - External Injectable Influenza, 2019-05-13 Completed Louisa Reyes Seasonal, 00:00:00 - External Injectable Influenza, 2019-05-13 Completed Louisa Reyes Seasonal, 00:00:00 - External Injectable Influenza, 2019-05-13 Completed Louisa Reyes Seasonal, 00:00:00 - External Injectable Influenza, 2019-05-13 Completed Louisa Reyes Seasonal, 00:00:00 - External Injectable Influenza, 2019-05-13 Completed Louisa Reyes Seasonal, 00:00:00 - External Injectable Influenza, Unknown Completed Louisa Reyes Seasonal, - External Injectable Influenza, Unknown Completed Louisa Reyes Seasonal, - External Injectable Vital Signs Vital Name Observation Time Observation Value Comments Source Systolic blood 2022-12-03 18:35:00 140 mm[Hg] Louisa Reyes - pressure External Diastolic blood 2022-12-03 18:35:00 74 mm[Hg] Jen Reyes - pressure External Heart rate 2022-12-03 18:35:00 97 /min Louisa dunbarbold - External Body temperature 2022-12-03 18:35:00 37.17 Annamarie Sarah dunbar Seybold - External Respiratory rate 2022-12-03 18:35:00 15 /min Sarah dunbar Seybold - External Body height 2022-12-03 18:35:00 162.6 cm Louisa Ellison eybold - External Body weight 2022-12-03 18:35:00 105.235 kg Louisa Ellison eybold - External BMI 2022-12-03 18:35:00 39.82 kg/m2 Louisa Ellison eybold - External Body height 2022-11-23 13:35:00 162.6 cm Louisa Ellison eybold - External Body weight 2022-11-23 13:35:00 102.513 kg Louisa S eybold - External BMI 2022-11-23 13:35:00 38.79 kg/m2 Louisa Ellison eybold - External Systolic blood 2022-11-05 20:17:00 160 mm[Hg] Louisa Seybold - pressure External Diastolic blood 2022-11-05 20:17:00 75 mm[Hg] Nettiese y Seybold - pressure External Heart rate 2022-11-05 20:17:00 63 /min Louisa S eybold - External Body temperature 2022-11-05 20:17:00 36.83 Annamarie Sarah ey Seybold - External Respiratory rate 2022-11-05 20:17:00 20 /min Sarah dunbar Seybold - External Body height 2022-11-05 20:17:00 162.6 cm Louisa Ellison eybold - External Body weight 2022-11-05 20:17:00 98.431 kg Louisa Ellison eybold - External BMI 2022-11-05 20:17:00 37.25 kg/m2 Louisa Ellison eybold - External Systolic blood 2022-10-08 15:16:00 142 mm[Hg] Louisa Seybold - pressure External Diastolic blood 2022-10-08 15:16:00 68 mm[Hg] Jen y Seybold - pressure External Heart rate 2022-10-08 15:16:00 74 /min Louisa Ellison eybold - External Body temperature 2022-10-08 15:16:00 37.17 Annamarie Sarah ey Seybold - External Respiratory rate 2022-10-08 15:16:00 15 /min Sarah ey Seybold - External Body height 2022-10-08 15:16:00 162.6 cm Louisa Ellison eybold - External Body weight 2022-10-08 15:16:00 102.513 kg Louisa Ellison eybold - External BMI 2022-10-08 15:16:00 38.79 kg/m2 Louisa Ellison eybold - External Oxygen saturation in 2022-10-08 15:16:00 99 /min Louisa Seybold - Arterial blood by External Pulse oximetry Systolic blood 2022-10-06 19:42:00 128 mm[Hg] Louisa Seybold - pressure External Diastolic blood 2022-10-06 19:42:00 82 mm[Hg] Nettiese y Seybold - pressure External Heart rate 2022-10-06 19:42:00 71 /min Louisa S eybold - External Respiratory rate 2022-10-06 19:42:00 18 /min Sarah ey Seybold - External Body height 2022-10-06 19:42:00 162.6 cm Louisa S eybold - External Body weight 2022-10-06 19:42:00 101.152 kg Louisa S eybold - External BMI 2022-10-06 19:42:00 38.28 kg/m2 Louisa S eybold - External Systolic blood 2022-06-23 18:53:00 134 mm[Hg] Louisa Seybold - pressure External Diastolic blood 2022-06-23 18:53:00 86 mm[Hg] Jen y Seybold - pressure External Heart rate 2022-06-23 18:53:00 62 /min Louisa S eybold - External Body temperature 2022-06-23 18:53:00 37.61 Annamarie Sarah ey Seybold - External Respiratory rate 2022-06-23 18:53:00 14 /min Sarah ey Seybold - External Body height 2022-06-23 18:53:00 162.6 cm Louisa S eybold - External Body weight 2022-06-23 18:53:00 101.152 kg Louisa S eybold - External BMI 2022-06-23 18:53:00 38.28 kg/m2 Louisa S eybold - External Oxygen saturation in 2022-06-23 18:53:00 99 /min Louisa Reyes - Arterial blood by External Pulse oximetry Systolic blood 2022-06-09 15:47:00 135 mm[Hg] Louisa Seybold - pressure External Diastolic blood 2022-06-09 15:47:00 71 mm[Hg] Nettiese y Seybold - pressure External Heart rate 2022-06-09 15:47:00 60 /min Louisa S eybold - External Body temperature 2022-06-09 15:47:00 36.33 Annamarie Sarah ey Seybold - External Respiratory rate 2022-06-09 15:47:00 16 /min Sarah ey Seybold - External Body height 2022-06-09 15:47:00 162.6 cm Louisa Ellison eybold - External Body weight 2022-06-09 15:47:00 102.15 kg Louisa S eybold - External BMI 2022-06-09 15:47:00 38.66 kg/m2 Louisa S eybold - External Oxygen saturation in 2022-06-09 15:47:00 97 /min Louisa Seybold - Arterial blood by External Pulse oximetry Systolic blood 2022-06-02 20:27:00 120 mm[Hg] Louisa Seybold - pressure External Diastolic blood 2022-06-02 20:27:00 69 mm[Hg] Nettiese y Seybold - pressure External Heart rate 2022-06-02 20:27:00 77 /min Louisa Ellison eybold - External Body temperature 2022-06-02 20:27:00 37.33 Annamarie Sarah ey Seybold - External Respiratory rate 2022-06-02 20:27:00 14 /min Sarah dunbar Seybold - External Body height 2022-06-02 20:27:00 162.6 cm Louisa Ellison eybold - External Body weight 2022-06-02 20:27:00 102.059 kg Louisa Ellison eybold - External BMI 2022-06-02 20:27:00 38.62 kg/m2 Louisa S eybold - External Oxygen saturation in 2022-06-02 20:27:00 99 /min Louisa Seybold - Arterial blood by External Pulse oximetry Systolic blood 2022-05-15 18:51:00 136 mm[Hg] Louisa Seybold - pressure External Diastolic blood 2022-05-15 18:51:00 62 mm[Hg] Kelse y Seybold - pressure External Heart rate 2022-05-15 18:51:00 72 /min Louisa S eybold - External Body temperature 2022-05-15 18:51:00 36.78 Annamarie Sarah ey Seybold - External Respiratory rate 2022-05-15 18:51:00 15 /min Sarah dunbar Seybold - External Body height 2022-05-15 18:51:00 162.6 cm Louisa dunbarbold - External Body weight 2022-05-15 18:51:00 104.781 kg Louisa Ellsion eybold - External BMI 2022-05-15 18:51:00 39.65 kg/m2 Louisa Ellison eybold - External Systolic blood 2022-04-28 21:04:00 144 mm[Hg] Louisa Seybold - pressure External Diastolic blood 2022-04-28 21:04:00 87 mm[Hg] Jen mcghee Seybold - pressure External Heart rate 2022-04-28 21:04:00 66 /min Louisa dunbarbold - External Body temperature 2022-04-28 21:04:00 37.06 Annamarie Sarah dunbar Seybold - External Respiratory rate 2022-04-28 21:04:00 24 /min Sarah dunbar Seybold - External Body height 2022-04-28 21:04:00 162.6 cm Louisa dunbarbold - External Body weight 2022-04-28 21:04:00 103.874 kg Louisa dunbarbold - External BMI 2022-04-28 21:04:00 39.31 kg/m2 Louisa dunbarbold - External Oxygen saturation in 2022-04-28 21:04:00 98 /min Louisa Reyes - Arterial blood by External Pulse oximetry HEIGHT 2022-02-05 22:14:00 162.6 cm WEIGHT 2022-02-05 22:14:00 102.059 kg HEIGHT 2022-02-05 22:14:00 162.6 cm WEIGHT 2022-02-05 22:14:00 102.059 kg HEIGHT 2022-02-05 22:14:00 162.6 cm WEIGHT 2022-02-05 22:14:00 102.059 kg HEIGHT 2020-10-05 14:26:00 162.6 cm WEIGHT 2020-10-05 14:26:00 101.152 kg HEIGHT 2020-09-08 16:01:00 162.6 cm WEIGHT 2020-09-08 16:01:00 102.513 kg HEIGHT 2020-08-10 14:57:00 162.6 cm WEIGHT 2020-08-10 14:57:00 102.059 kg HEIGHT 2020-08-10 14:57:00 162.6 cm WEIGHT 2020-08-10 14:57:00 102.059 kg Systolic blood 2022-02-06 06:14:00 122 mm[Hg] [facility] Diastolic blood 2022-02-06 06:14:00 50 mm[Hg] [facility] Heart rate 2022-02-06 06:14:00 65 /min [facility] Body temperature 2022-02-06 06:14:00 36.89 Annamarie [facility] Respiratory rate 2022-02-06 06:14:00 16 /min [facility] Oxygen saturation in 2022-02-06 06:14:00 100 /min [facility] Arterial blood by Medical Ce nter Pulse oximetry Body height 2022-02-05 22:14:00 162.6 cm [facility] Body weight 2022-02-05 22:14:00 102.059 kg [facility] BMI 2022-02-05 22:14:00 38.62 kg/m2 [facility] Procedures Procedure Date / Time Performing Clinician Source Performed [id number] 2022-12-21 00:00:[id number] [facility] [id number] 2022-12-21 00:00:00 [id number] [facility] [id number] 2022-12-21 00:00:00 [id number] [facility] CT ABDOMEN/PELVIS WITHOUT 2022-02-06 02:18:00 Omar Murphy CH, I [facility] IV CONTRAST [facility] COMPREHENSIVE METABOLIC 2022-02-06 00:15:00 Omar Murphy [facility] PROTHROMBIN TIME/INR 2022-02-05 23:11:00 Omar Murphy [facility] APTT 2022-02-05 23:11:00 Omar Murphy [facility] CBC W/PLT COUNT & AUTO 2022-02-05 23:09:00 Omar Murphy [facility] BLOOD CULTURE 2022-02-05 23:09:00 Omar Murphy [facility] CBC W/PLT COUNT & AUTO 2022-02-05 23:09:00 Omar Murphy [facility] LACTIC ACID, VENOUS 2022-02-05 23:09:00 Omar Murphy [facility]22[facility]02[facility]INALYSIS W/ REFLEX 2022-02-05 22:30:00 Omar Murphy [facility] URINE CULTURE [facility] Plan of Care Planned Activity Planned Date Details Comments Source Future Scheduled 2023-09-13 Lipid panel (procedure) [facility] 00:00:00 [code = [id number]] Medical Ce nter Future Scheduled 2023-09-13 Lipid panel (procedure) [facility] 00:00:00 [code = [id number]] Medical Ce nter Future Scheduled 2023-09-13 Lipid panel (procedure) [facility] 00:00:00 [code = [id number]] Medical Ce nter Future Scheduled 2023-09-13 Lipid panel (procedure) [facility] 00:00:00 [code = [id number]] Medical Ce nter Future Scheduled 2023-09-13 Lipid panel (procedure) [facility] 00:00:00 [code = [id number]] Medical Ce nter Future Scheduled 2023-09-13 Lipid panel (procedure) [facility] 00:00:00 [code = 86848905] Medical Ce nter Future Scheduled 2023-09-13 Lipid panel (procedure) [facility] 00:00:00 [code = [id number]] Medical Ce nter Future Scheduled 2023-02-[address] [facility] 00:00:00 [facility] (12[facility] [code = Tobacco Cessation Counseling and Screening (12+)] Future Scheduled 2023-02-[address] [facility] 00:00:00 [facility] ([facility] [code = Tobacco Cessation Counseling and Screening (12+)] Future Scheduled 2023-02-[address] [facility] 00:00:00 [facility] ([facility] [code = Tobacco Cessation Counseling and Screening (12+)] Future Scheduled 2023-02-[address] [facility] 00:00:00 Counseling and Screening Med ical Center (12+) [code = Tobacco Cessation Counseling and Screening (12+)] Future Scheduled 2023-02-[address] [facility] 00:00:00 Counseling and Screening Med ical Center (12+) [code = Tobacco Cessation Counseling and Screening (12+)] Future Scheduled 2023-02-[address] [facility] 00:00:00 Counseling and Screening Med ical Center (12+) [code = Tobacco Cessation Counseling and Screening (12+)] Future Scheduled 2023-02-[address] [facility] 00:00:00 Counseling and Screening Med ical Center (12+) [code = Tobacco Cessation Counseling and Screening (12+)] Future Scheduled 2022-10-30 Influenza Vaccine (#1) [facility]00 [code = Influenza Vaccine Me dical Center (#1)] Future Scheduled 2022-10-30 INFLUENZA VACCINE (Season [facility] 00:00:00 Ended) [code = INFLUENZA Med ical Center VACCINE (Season Ended)] Future Scheduled 2022-10-30 INFLUENZA VACCINE (Season [facility] 00:00:00 Ended) [code = INFLUENZA Med ical Center VACCINE (Season Ended)] Future Scheduled 2022-10-30 Influenza Vaccine (#1) [facility] 00:00:00 [code = Influenza Vaccine Me dical Center (#1)] Future Scheduled 2022-10-30 Influenza Vaccine (#1) [facility] 00:00:00 [code = Influenza Vaccine Me dical Center (#1)] Future Scheduled 2022-10-30 Influenza Vaccine (#1) [facility] 00:00:00 [code = Influenza Vaccine Me dical Center (#1)] Future Scheduled 2022-10-30 Influenza Vaccine (#1) [facility] 00:00:00 [code = Influenza Vaccine Me dical Center (#1)] Future Scheduled 2022-03-[address] [facility] 00:00:00 (12+) [code = DEPRESSION Med ical Center SCREENING (12+)] Future Scheduled 2022-03-[address] [facility] 00:00:00 (12+) [code = DEPRESSION Med ical Center SCREENING (12+)] Future Scheduled 2022-03-[address] [facility] 00:00:00 (12+) [code = DEPRESSION Med ical Center SCREENING (12+)] Future Scheduled 2022-03-[address] [facility] 00:00:00 (12+) [code = DEPRESSION Med ical Center SCREENING (12+)] Future Scheduled 2022-03-[address] [facility] 00:00:00 (12+) [code = DEPRESSION Med ical Center SCREENING (12+)] Future Scheduled 2022-03-[address] [facility] 00:00:00 (12+) [code = DEPRESSION Med ical Center SCREENING (12+)] Future Scheduled 2022-03-[address] [facility] 00:00:00 (12+) [code = DEPRESSION Med ical Center SCREENING (12+)] Future Scheduled 2018-05-[address] [facility] 00[facility]:00 measurement (procedure) [facility] [code = [id number]] Future Scheduled 2018-05-[address] [facility] 00:00:00 measurement (procedure) [facility] [code = 36931089] Future Scheduled 2018-05-[address] [facility] 00:00:00 measurement (procedure) [facility] [code = 30244246] Future Scheduled 2018-05-[address] [facility] 00:00:00 measurement (procedure) [facility] [code = 67605633] Future Scheduled 2018-05-[address] [facility] 00:00:00 measurement (procedure) [facility] [code = 42435365] Future Scheduled 2018-05-[address] [facility] 00:00:00 measurement (procedure) [facility] [code = 20508371] Future Scheduled 2018-05-[address] [facility] 00:00:00 measurement (procedure) [facility] [code = 91280681] Future Scheduled 2017-08-15 SHINGLES VACCINES ([address] [facility] 00:00:00 2) [code = SHINGLES Medical Center VACCINES (1 of 2)] Future Scheduled 2017-08-15 SHINGLES VACCINES ([address] [facility] 00:00:00 2) [code = SHINGLES Medical Center VACCINES (1 of 2)] Future Scheduled 2017-08-15 SHINGLES VACCINES ([address] [facility] 00:00:00 2) [code = SHINGLES Medical Center VACCINES (1 of 2)] Future Scheduled 2017-08-15 SHINGLES VACCINES ([address] [facility] 00:00:00 2) [code = SHINGLES Medical Center VACCINES (1 of 2)] Future Scheduled 2017-08-15 SHINGLES VACCINES ([address] [facility] 00:00:00 2) [code = SHINGLES Medical Center VACCINES (1 of 2)] Future Scheduled 2017-08-15 SHINGLES VACCINES ([address] [facility] 00:00:00 2) [code = SHINGLES Medical Center VACCINES (1 of 2)] Future Scheduled 2017-08-15 SHINGLES VACCINES ([address] [facility] 00:00:00 2) [code = SHINGLES Medical Center VACCINES (1 of 2)] Future Scheduled 1988-08-15 Screening for malignant [facility] 00:00:00 neoplasm of cervix Medical C enter (procedure) [code = 883504059] Future Scheduled 1988-08-15 Screening for malignant [facility] 00:00:00 neoplasm of cervix Medical C enter (procedure) [code = 766653867] Future Scheduled 1988-08-15 Screening for malignant [facility] 00:00:00 neoplasm of cervix Medical C enter (procedure) [code = 848330901] Future Scheduled 1988-08-15 Screening for malignant [facility] 00:00:00 neoplasm of cervix Medical C enter (procedure) [code = 208489695] Future Scheduled 1988-08-15 Screening for malignant [facility] 00:00:00 neoplasm of cervix Medical C enter (procedure) [code = 719419798] Future Scheduled 1988-08-15 Screening for malignant [facility] 00:00:00 neoplasm of cervix Medical C enter (procedure) [code = 262088803] Future Scheduled 1988-08-15 Screening for malignant [facility] 00:00:00 neoplasm of cervix Medical C enter (procedure) [code = 234777356] Future Scheduled 1986-08-15 DTAP/TDAP/TD VACCINES ([address] [facility] 00:00:00 - Tdap) [code = Medical Cent er DTAP/TDAP/TD VACCINES (1 - Tdap)] Future Scheduled 1986-08-15 DTAP/TDAP/TD VACCINES ([address] [facility] 00:00:00 - Tdap) [code = Medical Cent er DTAP/TDAP/TD VACCINES (1 - Tdap)] Future Scheduled 1986-08-15 DTAP/TDAP/TD VACCINES ([address] [facility] 00:00:00 - Tdap) [code = Medical Cent er DTAP/TDAP/TD VACCINES (1 - Tdap)] Future Scheduled 1986-08-15 DTAP/TDAP/TD VACCINES ([address] [facility] 00:00:00 - Tdap) [code = Medical Cent er DTAP/TDAP/TD VACCINES (1 - Tdap)] Future Scheduled 1986-08-15 DTAP/TDAP/TD VACCINES ([address] [facility] 00:00:00 - Tdap) [code = Medical Cent er DTAP/TDAP/TD VACCINES (1 - Tdap)] Future Scheduled 1986-08-15 DTAP/TDAP/TD VACCINES ([address] [facility] 00:00:00 - Tdap) [code = Medical Cent er DTAP/TDAP/TD VACCINES (1 - Tdap)] Future Scheduled 1986-08-15 DTAP/TDAP/TD VACCINES ([address] [facility] 00:00:00 - Tdap) [code = Medical Cent er DTAP/TDAP/TD VACCINES (1 - Tdap)] Future Scheduled 1982-08-[address] [facility] 00:00:00 virus screening Medical Cent er (procedure) [code = 093061847] Future Scheduled 1982-08-[address] [facility] 00:00:00 virus screening Medical Cent er (procedure) [code = 676542085] Future Scheduled 1982-08-[address] [facility] 00:00:00 virus screening Medical Cent er (procedure) [code = 044389783] Future Scheduled 1982-08-[address] [facility] 00:00:00 virus screening Medical Cent er (procedure) [code = 284098691] Future Scheduled 1977-08-15 DIABETIC EYE EXAM [code = [facility] 00:00:00 DIABETIC EYE EXAM] Medical C enter Future Scheduled 1977-08-15 Diabetic foot examination [facility] 00:00:00 (regime/therapy) [code = [facility] 053984801] Future Scheduled 1977-08-15 Urine screening for [facility] 00:00:00 protein (procedure) [code Ms dical Center = 198340503] Future Scheduled 1977-08-15 DIABETIC EYE EXAM [code = [facility] 00:00:00 DIABETIC EYE EXAM] Medical C enter Future Scheduled 1977-08-15 Diabetic foot examination [facility] 00:00:00 (regime/therapy) [code = [facility] 256960203] Future Scheduled 1977-08-15 Urine screening for [facility] 00:00:00 protein (procedure) [code Ms dical Center = 871787159] Future Scheduled 1977-08-15 DIABETIC EYE EXAM [code = [facility] 00:00:00 DIABETIC EYE EXAM] Medical C enter Future Scheduled 1977-08-15 Diabetic foot examination [facility] 00:00:00 (regime/therapy) [code = [facility] 823340756] Future Scheduled 1977-08-15 Urine screening for [facility] 00:00:00 protein (procedure) [code Ms dical Center = 210105101] Future Scheduled 1977-08-15 DIABETIC EYE EXAM [code = [facility] 00:00:00 DIABETIC EYE EXAM] Medical C enter Future Scheduled 1977-08-15 Diabetic foot examination [facility] 00:00:00 (regime/therapy) [code = [facility] 541486690] Future Scheduled 1977-08-15 Urine screening for [facility] 00:00:00 protein (procedure) [code Ms dical Center = 356901761] Future Scheduled 1977-08-15 DIABETIC EYE EXAM [code = [facility] 00:00:00 DIABETIC EYE EXAM] Medical C enter Future Scheduled 1977-08-15 Diabetic foot examination [facility] 00:00:00 (regime/therapy) [code = [facility] 969814334] Future Scheduled 1977-08-15 Urine screening for [facility] 00:00:00 protein (procedure) [code Me dical Center = 692745849] Future Scheduled 1977-08-15 DIABETIC EYE EXAM [code = [facility] 00:00:00 DIABETIC EYE EXAM] Medical C enter Future Scheduled 1977-08-15 Diabetic foot examination [facility] 00:00:00 (regime/therapy) [code = [facility] 371224613] Future Scheduled 1977-08-15 Urine screening for [facility] 00:00:00 protein (procedure) [code [facility] = 816010391] Future Scheduled 1977-08-15 DIABETIC EYE EXAM [code = [facility] 00:00:00 DIABETIC EYE EXAM] Medical C enter Future Scheduled 1977-08-15 Diabetic foot examination [facility] 00:00:00 (regime/therapy) [code = [facility] 458282418] Future Scheduled 1977-08-15 Urine screening for [facility] 00:00:00 protein (procedure) [code [facility] = 991375902] Future Scheduled 1973-08-15 PNEUMOCOCCAL VACCINE 0-[address] [facility] 00:00:00 YRS (1 - PCV) [code = [facility] PNEUMOCOCCAL VACCINE 0-64 YRS (1 - PCV)] Future Scheduled 1973-08-15 PNEUMOCOCCAL VACCINE 0-[address] [facility] 00:00:00 YRS (1 - PCV) [code = [facility] PNEUMOCOCCAL VACCINE 0-64 YRS (1 - PCV)] Future Scheduled 1973-08-15 Pneumococcal Vaccine: [facility]:00 0-64 Years (1 - PCV) Medical Center [code = Pneumococcal Vaccine: 0-64 Years (1 - PCV)] Future Scheduled 1973-08-15 Pneumococcal Vaccine: [facility] 00:[facility]:00 0-64 Years (1 - PCV) Medical Center [code = Pneumococcal Vaccine: 0-64 Years (1 - PCV)] Future Scheduled 1973-08-15 Pneumococcal Vaccine: [facility] 00:00:00 0-64 Years (1 - PCV) Medical Center [code = Pneumococcal Vaccine: 0-64 Years (1 - PCV)] Future Scheduled 1973-08-15 Pneumococcal Vaccine: [facility] 00:00:00 0-64 Years (1 - PCV) Medical Center [code = Pneumococcal Vaccine: 0-64 Years (1 - PCV)] Future Scheduled 1973-08-15 Pneumococcal Vaccine: [facility] 00:00:00 0-64 Years (1 - PCV) Medical Center [code = Pneumococcal Vaccine: 0-64 Years (1 - PCV)] Future Scheduled 1968-02-15 COVID-19 VACCINE (#1[facility]:00 [code = COVID-19 VACCINE Med ical Center (#1)] Future Scheduled 1968-02-15 COVID-19 VACCINE (#1) [facility]:00:00 [code = COVID-19 VACCINE Med ical Center (#1)] Future Scheduled 1968-02-15 COVID-19 VACCINE (#1) [facility] 00:00:00 [code = COVID-19 VACCINE Med ical Center (#1)] Future Scheduled 1968-02-15 COVID-19 VACCINE (#1) [facility]:00:00 [code = COVID-19 VACCINE Med ical Center (#1)] Future Scheduled 1968-02-15 COVID-19 VACCINE (#1) [facility]:00:00 [code = COVID-19 VACCINE Med ical Center (#1)] Future Scheduled 1968-02-15 COVID-19 VACCINE (#1) [facility] 00:00:00 [code = COVID-19 VACCINE Med ical Center (#1)] Future Scheduled 1968-02-15 COVID-19 VACCINE (#1) [facility]:00:00 [code = COVID-19 VACCINE Med ical Center (#1)] Future Scheduled 1967 Screening for malignant [facility] 00:00:00 neoplasm of breast Medical C enter (procedure) [code = 317877807] Future Scheduled 1967 CT Colonography (combo) [facility] 00:00:00 [code = CT Colonography [facility] (combo)] Future Scheduled 1967 Screening for malignant [facility] 00:00:00 neoplasm of colon Medical Ce nter (procedure) [code = 589419995] Future Scheduled 1967 Screening for malignant [facility] 00:00:00 neoplasm of colon Medical Ce nter (procedure) [code = 386142773] Future Scheduled 1967 Screening for malignant [facility] 00:00:00 neoplasm of colon Medical Ce nter (procedure) [code = 282048697] Future Scheduled 1967 Screening for malignant [facility] 00:00:00 neoplasm of colon Medical Ce nter (procedure) [code = 749137699] Future Scheduled 1967 Sigmoidoscopy [code = [facility] S[facility]oscopy] Medical Cent[facility] r Future Scheduled 1967 Screening for malignant [facility] 00:00:00 neoplasm of breast Medical C enter (procedure) [code = 858369354] Future Scheduled 1967 CT Colonography (combo) [facility] 00:00:00 [code = CT Colonography [facility] (combo)] Future Scheduled 1967 Screening for malignant [facility] 00:00:00 neoplasm of colon Medical Ce nter (procedure) [code = 007443269] Future Scheduled 1967 Screening for malignant [facility] 00:00:00 neoplasm of colon Medical Ce nter (procedure) [code = 002181557] Future Scheduled 1967 Screening for malignant [facility] 00:00:00 neoplasm of colon Medical Ce nter (procedure) [code = 913645024] Future Scheduled 1967 Screening for malignant [facility] 00:00:00 neoplasm of colon Medical Ce nter (procedure) [code = 899237475] Future Scheduled 1967 Sigmoidoscopy [code = [facility] Sigmoidoscopy] Medical Cent[facility] r Future Scheduled 1967 Screening for malignant [facility] 00:00:00 neoplasm of breast Medical C enter (procedure) [code = 068520911] Future Scheduled 1967 CT Colonography (combo) [facility] 00:00:00 [code = CT Colonography [facility] (combo)] Future Scheduled 1967 Screening for malignant [facility] 00:00:00 neoplasm of colon Medical Ce nter (procedure) [code = 846801809] Future Scheduled 1967 Screening for malignant [facility] 00:00:00 neoplasm of colon Medical Ce nter (procedure) [code = 512848767] Future Scheduled 1967 Screening for malignant [facility] 00:00:00 neoplasm of colon Medical Ce nter (procedure) [code = 392435310] Future Scheduled 1967 Screening for malignant [facility] 00:00:00 neoplasm of colon Medical Ce nter (procedure) [code = 177407109] Future Scheduled 1967 Sigmoidoscopy [code = [facility] Sigmoidoscopy] Medical Cent[facility] r Future Scheduled 1967 Screening for malignant [facility] 00:00:00 neoplasm of breast Medical C enter (procedure) [code = 583211769] Future Scheduled 1967 CT Colonography (combo) [facility] 00:00:00 [code = CT Colonography [facility] Center (combo)] Future Scheduled 1967 Screening for malignant [facility] 00:00:00 neoplasm of colon Medical Ce nter (procedure) [code = 202849701] Future Scheduled 1967 Screening for malignant [facility] 00:00:00 neoplasm of colon Medical Ce nter (procedure) [code = 093309287] Future Scheduled 1967 Screening for malignant [facility] 00:00:00 neoplasm of colon Medical Ce nter (procedure) [code = 237290765] Future Scheduled 1967 Screening for malignant [facility] 00:00:00 neoplasm of colon Medical Ce nter (procedure) [code = 488945704] Future Scheduled 1967 Sigmoidoscopy [code = [facility] Sigmoidoscopy] [facility] Future Scheduled 1967 Screening for malignant [facility] 00:00:00 neoplasm of breast Medical C enter (procedure) [code = 855144898] Future Scheduled 1967 CT Colonography (combo) [facility] 00:00:00 [code = CT Colonography [facility] (combo)] Future Scheduled 1967 Screening for malignant [facility] 00:00:00 neoplasm of colon Medical Ce nter (procedure) [code = 488762419] Future Scheduled 1967 Screening for malignant [facility] 00:00:00 neoplasm of colon Medical Ce nter (procedure) [code = 146684149] Future Scheduled 1967 Screening for malignant [facility] 00:00:00 neoplasm of colon Medical Ce nter (procedure) [code = 663094440] Future Scheduled 1967 Screening for malignant [facility] 00:00:00 neoplasm of colon Medical Ce nter (procedure) [code = 961607547] Future Scheduled 1967 Sigmoidoscopy [code = [facility]] Medical Cente r Future Scheduled 1967 Screening for malignant [facility] 00:00:00 neoplasm of breast Medical C enter (procedure) [code = 386971629] Future Scheduled 1967 CT Colonography (combo) [facility] 00:00:00 [code = CT Colonography [facility] (combo)] Future Scheduled 1967 Screening for malignant [facility] 00:00:00 neoplasm of colon Medical Ce nter (procedure) [code = 230772481] Future Scheduled 1967 Screening for malignant [facility] 00:00:00 neoplasm of colon Medical Ce nter (procedure) [code = 744912104] Future Scheduled 1967 Screening for malignant [facility] 00:00:00 neoplasm of colon Medical Ce nter (procedure) [code = 916609694] Future Scheduled 1967 Screening for malignant [facility] 00:00:00 neoplasm of colon Medical Ce nter (procedure) [code = 716329983] Future Scheduled 1967 Sigmoidoscopy [code = [facility]] Medical Cente r Future Scheduled 1967 Screening for malignant [facility] 00:00:00 neoplasm of breast Medical C enter (procedure) [code = 024413567] Future Scheduled 1967 CT Colonography (combo) [facility] 00:00:00 [code = CT [facility] ([facility])] Future Scheduled 1967 Screening for malignant [facility] 00:00:00 neoplasm of colon Medical Ce nter (procedure) [code = 297644955] Future Scheduled 1967 Screening for malignant [facility] 00:00:00 neoplasm of colon Medical Ce nter (procedure) [code = 658430427] Future Scheduled 1967 Screening for malignant [facility] 00:00:00 neoplasm of colon Medical Ce nter (procedure) [code = 926566032] Future Scheduled 1967 Screening for malignant [facility] 00:00:00 neoplasm of colon Medical Ce nter (procedure) [code = 505603340] Future Scheduled 1967 Sigmoidoscopy [code = [facility]] Medical Cente r Encounters Start End Encounter Admission Attending Care Care Encounter Source Date/Time Date/Time Type Type Clinicians Facility Department ID 2020-12-08 Outpatient ZOE GUZMÁN Surgery [id number] [facility] 14:31:23 AUREA 2023-02-03 2023-02-03 Outpatient LOUISA JACKSON [id number] [place] 09:55:00 09:55:00 NIYA Seybol d 2023-02-03 2023-02-03 Outpatient LOUISA SUTHERLAND [id number] [place] 09:00:00 09:00:00 HUMBERTO Seybol d 2023-01-27 2023-01-27 Outpatient KASSY FRYE [id number] [place] 00:00:00 00:00:00 MD ZHANG Seybol d 2023-01-26 2023-01-26 Outpatient LOUISA DUMONT [id number] [place] 00:00:00 00:00:00 DELGADO Seybol d 2023-01-11 2023-01-11 Outpatient LOUISA DUMONT [id number] [place] 00:00:00 00:00:00 DELGADO Seybol d 2023-01-07 2023-01-07 Outpatient LOUISA DUMONT [id number] [place] 09:45:00 09:45:00 DELGADO Seybol d 2023-01-05 2023-01-05 Outpatient LOUISA UDMONT [id number] [place] 11:15:00 11:15:00 DELGADO Seybol d 2023-01-04 2023-01-04 Outpatient PREZAIsha LOUISA FRYE [id number] [place] 00:00:00 00:00:00 DELGADO Seybol d 2023-01-01 2023-01-01 Outpatient PREZAIsha LOUISA FRYE [id number] [place] 00:00:00 00:00:00 DELGADO Seybol d 2022-12-31 2022-12-31 Outpatient PREZAIsha LOUISA FRYE [id number] [place] 00:00:00 00:00:00 DELGADO Seybol d 2022-12-18 2022-12-22 Inpatient EM Kevyn, [facility]ACL MEDI.01 [id number] [facility] 20:26:00 22:05:00 Sonia 93 [facility] 2022-12-10 2022-12-10 Outpatient TRINALOUISA [id number] [place] 00:00:00 00:00:00 JENNIFER Seybol d 2022-12-10 2022-12-10 Outpatient PREZALOUISA Ellison [id number] [place] 00:00:00 00:00:00 DELGADO Seybol d 2022-12-09 2022-12-09 Outpatient PREZAIsha LOUISA FRYE [id number] [place] 00:00:00 00:00:00 DELGADO Seybol d 2022-12-09 2022-12-09 Outpatient PREZAIsha LOUISA FRYE [id number] [place] 00:00:00 00:00:00 DELGADO Seybol d 2022-12-08 2022-12-08 Outpatient LOUISA FRYE [id number] [place] 12:40:00 12:40:00 Seybol d 2022-12-08 2022-12-08 Outpatient LOUISA FRYE [id number] [place] 12:35:00 12:35:00 Seybol d 2022-12-08 2022-12-08 Outpatient LOUISA FRYE [id number] [place] 12:30:00 12:30:00 Seybol d 2022-12-03 2022-12-03 Outpatient PRELOUISA DIAZ [id number] [place] 13:30:00 13:30:00 DELGADO Seybol d 2022-11-23 2022-11-23 Outpatient REYNA LOUISA FRYE [id number] [place] 08:30:00 08:30:00 ANGELO Seybo ld 2022-11-05 2022-11-05 Outpatient TIM LOUISA FRYE [id number] [place] 15:00:00 15:00:00 DELGADO Seybol d 2022-10-21 2022-10-21 Outpatient LOUISA FRYE [id number] [place] 00:00:00 00:00:00 Seybol d 2022-10-21 2022-10-21 Outpatient PRELOUISA DIAZ [id number] [place] 00:00:00 00:00:00 DELGADO Seybol d 2022-10-20 2022-10-20 Outpatient CHRISTOPH GUSMAN LOUISA FRYE [id number] [place] 08:30:00 08:30:00 Seybol d 2022-10-15 2022-10-15 Outpatient LOUISA DUMONT [id number] [place] 00:00:00 00:00:00 DELGADO Seybol d 2022-10-15 2022-10-15 Outpatient LOUISA FRYE [id number] [place] 00:00:00 00:00:00 Seybol d 2022-10-09 2022-10-09 Outpatient LOUISA DUMONT [id number] [place] 00:00:00 00:00:00 DELGADO Seybol d 2022-10-08 2022-10-08 Outpatient LAB90 LOUISA FRYE [id number] [place] 11:15:00 11:15:00 Seybol d 2022-10-08 2022-10-08 Outpatient PRELOUISA DIAZ [id number] [place] 10:45:00 10:45:00 DELGADO Seybol d 2022-10-06 2022-10-06 Outpatient SCOTTLOUISA SUBRAMANIAN [id number] [place] 14:00:00 14:00:00 CHANO Seybol d 2022-10-01 2022-10-01 Outpatient LOUISA MENA [id number] [place] 00:00:00 00:00:00 JENNIFER Seybol d 2022-09-20 2022-09-20 Outpatient RJ, LOUISA FRYE [id number] [place] 12:30:00 12:30:00 ASMI Seybol d 2022-09-14 2022-09-14 Outpatient PREZAS, LOUISA FRYE [id number] [place] 00:00:00 00:00:00 DELGADO Seybol d 2022-09-14 2022-09-14 Outpatient PREZAS, LOUISA FRYE [id number] [place] 00:00:00 00:00:00 DELGADO Seybol d 2022-09-03 2022-09-03 Outpatient PREZAS, LOUISA FRYE [id number] [place] 00:00:00 00:00:00 DELGADO Seybol d 2022-09-02 2022-09-02 Outpatient PREZAS, LOUISA FRYE [id number] [place] 00:00:00 00:00:00 DELGADO Seybol d 2022-09-02 2022-09-02 Outpatient PREZAS, LOUISA FRYE [id number] [place] 00:00:00 00:00:00 DELGADO Seybol d 2022-08-23 2022-08-23 Outpatient GARCIA, LUOISA FRYE [id number] [place] 11:45:00 11:45:00 ALFONSO Seybol d 2022-08-23 2022-08-23 Outpatient PREZAS, LOUISA FRYE [id number] [place] 00:00:00 00:00:00 DELGADO Seybol d 2022-08-09 2022-08-09 Outpatient PREZAS, LOUISA FRYE [id number] [place] 00:00:00 00:00:00 DELGADO Seybol d 2022-07-17 2022-07-17 Outpatient PREZAS, LOUISA FRYE [id number] [place] 00:00:00 00:00:00 DELGADO Seybol d 2022-07-17 2022-07-17 Outpatient PREZAS, LOUISA FRYE [id number] [place] 00:00:00 00:00:00 DELGADO Seybol d 2022-07-17 2022-07-17 Outpatient PREZAS, LOUISA FRYE [id number] [place] 00:00:00 00:00:00 DELGADO Seybol d 2022-07-01 2022-07-01 Outpatient PREZALOUISA Ellison [id number] [place] 08:15:00 08:15:00 DELGADO Seybol d 2022-06-26 2022-06-26 Outpatient MYNETTIEZACKTOMEKA LOUIAS FRYE [id number] [place] 00:00:00 00:00:00 MD ZHANG Seybol d 2022-06-23 2022-06-23 Outpatient PREZAS, LOUISA FRYE [id number] [place] 14:00:00 14:00:00 DELGADO Seybol d 2022-06-22 2022-06-22 Outpatient PREZAS, LOUISA FRYE [id number] [place] 00:00:00 00:00:00 DELGADO Seybol d 2022-06-22 2022-06-22 Outpatient PREZASLOUISA [id number] [place] 00:00:00 00:00:00 DELGADO Seybol d 2022-06-19 2022-06-19 Outpatient PREZAS, LOUISA FRYE [id number] [place] 00:00:00 00:00:00 DELGADO Seybol d 2022-06-09 2022-06-09 Outpatient LAB90 LOUISA FRYE [id number] [place] 15:40:00 15:40:00 Seybol d 2022-06-09 2022-06-09 Outpatient PREZAIsha, LOUISA FRYE [id number] [place] 11:30:00 11:30:00 DELGADO Seybol d 2022-06-09 2022-06-09 Outpatient LOUISA MEAD [id number] [place] 00:00:00 00:00:00 DEZ Seybol d 2022-06-02 2022-06-02 Outpatient PREZALOUISA Ellison [id number] [place] 15:15:00 15:15:00 DEGLADO Seybol d 2022-06-01 2022-06-01 Outpatient PREZALOUISA Ellison [id number] [place] 15:15:00 15:15:00 DELGADO Seybol d 2022-05-28 2022-05-28 Outpatient SHOAIB NAVARRO [id number] [place] 14:00:00 14:00:00 Seybol d 2022-05-19 2022-05-19 Outpatient PREZASLOUISA [id number] [place] 00:00:00 00:00:00 DELGADO Seybol d 2022-05-18 2022-05-18 Outpatient PREZASLOUISA [id number] [place] 00:00:00 00:00:00 DELGADO Seybol d 2022-05-18 2022-05-18 Outpatient PREZASLOUISA [id number] [place] 00:00:00 00:00:00 DELGADO Seybol d 2022-05-15 2022-05-15 Outpatient PREZAS, LOUISA FRYE [id number] [place] 13:45:00 13:45:00 DELGADO Seybol d 2022-05-15 2022-05-15 Outpatient PREZASLOUISA [id number] [place] 00:00:00 00:00:00 DELGADO Seybol d 2022-05-11 2022-05-11 Outpatient LAB90 LOUISA FRYE [id number] [place] 11:15:00 11:15:00 Seybol d 2022-05-05 2022-05-05 Outpatient PREZASLOUISA [id number] [place] 00:00:00 00:00:00 DELGADO Seybol d 2022-05-01 2022-05-01 Outpatient LOUISA FRYE [id number] [place] 00:00:00 00:00:00 Seybol d 2022-05-01 2022-05-01 Outpatient LOUISA FRYE [id number] [place] 00:00:00 00:00:00 Seybol d 2022-04-28 2022-04-28 Outpatient PREZASLOUISA [id number] [place] 14:45:00 14:45:00 DELGADO Seybol d 2022-03-18 2022-03-18 Outpatient TRINALOUISA Coker [id number] [place] 15:00:00 15:00:00 JENNIFER Seybol d 2022-02-05 [facility] [id number] 22:24[facility]00 06:15:00 [facility] 2022-02-05 2022-02-06 Emergency ER Omar Murphy [facility] [id number] 22:24:00 06:15:00 [facility] 2022-02-05 2022-02-06 Emergency ER OMAR MURPHY [facility] [id number] [facility] 22:24:00 06:15:00 2022-02-05 2022-02-05 Travel [facility] [id number] [facility] 00[facility]00 [facility] 2022-02-05 2022-02-05 Travel [facility] [id number] [facility] 00[facility]00 [facility] 2020-10-05 2020-10-05 Emergency ER [facility] Emergency [id number] [facility] 14:17:00 14:17:00 2020-09-08 2020-09-08 Emergency ER [facility] Emergency [id number] [facility] 21:59:00 21:59:00 2020-08-10 2020-08-10 Emergency ER [facility] Emergency [id number] [facility] 14:44:00 14:44:00 2019-06-06 2019-06-06 Inpatient HCAPM DOLORES [id number] [facility] 10:50:00 13:49:58 70 [facility] 2016-08-24 2016-08-24 Outpatient DELL SHARPE [id number] [facility] 08:30:00 08:30:00 03 mitchell Torres 2016-07-13 2016-07-13 Outpatient TAN SHARPE [id number] [facility] 10:30:00 10:30:00 02 mitchell Torres 2015-04-12 2015-04-12 Outpatient DELL SHARPE [id number] [place] 08:00:00 08:00:00 01 mitchell Torres 2015-03-28 2015-03-28 Outpatient DELL SHARPE [id number] [facility] 15:30:00 15:30:00 00 mitchell Torres Results Test Description Test Time Test Comments Results Result Comments Source GLUCOSE BEDSIDE 2022-12-22 17:20:00 Test Item Value Reference Range Interpretation Comme nts GLUCOSE BEDSIDE (test code = 201 MG/DL 70-110 H Performed by certified boom conveyor operator at GLUBED) [facility] GLUCOSE [id number] 12:29:00 Test Item Value Reference Range Interpretation Comments GLUCOSE BEDSIDE (test 193 MG/DL 70-110 H Perfor med by certified code = GLUBED) boom conveyor operator at [facility] GLUCOSE [id number] 09:23:00 Test Item Value Reference Range Interpretation Comments GLUCOSE BEDSIDE (test 149 MG/DL 70-110 H Perfor med by certified code = GLUBED) boom conveyor operator at [facility] BASIC METABOLIC [id number] 06:21:00 Test Item Value Reference Range Interpretation Comments SODIUM (test code = 135 mEq/L 134-147 N NA) POTASSIUM (test code 4.7 mEq/L 3.4-5.0 N = K) CHLORIDE (test code 102 mEq/L 100-108 N = CL) CARBON DIOXIDE (test 25 mEq/l 21-33 N code = CO2) ANION GAP (test code 13 0-20 N = GAP) GLUCOSE (test code = 157 mg/dL 77-141 H NOTE: N EW NORMAL RANGE GLU) BLOOD UREA NITROGEN 19 mg/dL 7-25 N NOTE: NE W NORMAL RANGE (test code = BUN) GLOMERULAR 32.9 90-95 L The Glomerular FILTRATION RATE Filtration R ate is a (test code = GFR) calculated parameterbased on serum Creatinine, pat ient age and sex. GFR va luesless than 60 mL/min/ 1.73 square meters a re indicative ofCh ronic Kidney Disease. Values less than 15 mL/min/1.73squa re meters indicate Kidney failure. The calculation forGFR is based on the CKD-EPI (2020) calculat ion. This formulais race indifferent and is the recommended for nevaeh for GFRby the [facility] n[facility] Kid[facility] Foundati on for Adults.The GFR will not calculate if th e sex is unknown or if thepatient's ag e is <18 years. CREATININE (test 1.8 mg/dL 0.6-1.3 H code = CREAT) CALCIUM (test code = 8.8 mg/dL 8.0-10.5 N CA) GLUCOSE [id number] 21:23:00 Test Item Value Reference Range Interpretation Comments GLUCOSE BEDSIDE (test 186 MG/DL 70-110 H Perfor med by certified code = GLUBED) boom conveyor operator at [facility] GLUCOSE [id number] 17:27:00 Test Item Value Reference Range Interpretation Comments GLUCOSE BEDSIDE (test 198 MG/DL 70-110 H Perfor med by certified code = GLUBED) boom conveyor operator at [facility] GLUCOSE [id number] 14:57:00 Test Item Value Reference Range Interpretation Comments GLUCOSE BEDSIDE (test 171 MG/DL 70-110 H Perfor med by certified code = GLUBED) boom conveyor operator at [facility] [id number] 11:15:00 Test Item Value Reference Range Interpretation Comments ACT-ISTAT (test code 371 SEC 74-137 H Perform ed by certified = ACTI) boom conveyor operator at [facility] BASIC METABOLIC [id number] 05:35:00 Test Item Value Reference Range Interpretation Comments SODIUM (test code = 137 mEq/L 134-147 N NA) POTASSIUM (test code 4.8 mEq/L 3.4-5.0 N = K) CHLORIDE (test code 103 mEq/L 100-108 N = CL) CARBON DIOXIDE (test 27 mEq/l 21-33 N code = CO2) ANION GAP (test code 12 0-20 N = GAP) GLUCOSE (test code = 242 mg/dL 77-141 H NOTE: N EW NORMAL RANGE GLU) BLOOD UREA NITROGEN 19 mg/dL 7-25 N NOTE: NE W NORMAL RANGE (test code = BUN) GLOMERULAR 40.9 90-95 L The Glomerular FILTRATION RATE Filtration R ate is a (test code = GFR) calculated parameterbased on serum Creatinine, pat ient age and sex. GFR va luesless than 60 mL/min/ 1.73 square meters a re indicative ofCh ronic Kidney Disease. Values less than 15 mL/min/1.73squa re meters indicate Kidney failure. The calculation forGFR is based on the CKD-EPI (2020) calculat ion. This formulais race indifferent and is the recommended for nevaeh for GFRby the [facility] on for Adults.The GFR will not calculate if th e sex is unknown or if thepatient's ag e is <18 years. CREATININE (test 1.5 mg/dL 0.6-1.3 H code = CREAT) CALCIUM (test code = 9.2 mg/dL 8.0-10.5 N CA) COMMENTS: To be done morning of Heart CathHCG SERUM [id number] 05:30:00 Test Item Value Reference Range Interpretation Comments HCG SERUM QUAL (test code = SERUM NEGATIVE NEGATIVE HCGQL) CBC W/AUTO [id number] 05:19:00 Test Item Value Reference Range Interpretation Comments WHITE BLOOD CELL (test code = 10.8 x10 3/uL 4.5-11.0 N WBC) RED BLOOD CELL (test code = 4.68 x10 6/uL 3.54-5.02 N RBC) HEMOGLOBIN (test code = HGB) 11.9 g/dL 11.0-15.0 N HEMATOCRIT (test code = HCT) 37.8 % 33.0-45.0 N MEAN CELL VOLUME (test code = 80.8 fL 81.0-99.0 L MCV) MEAN CELL HGB (test code = MCH) 25.4 pg 27.0-33.0 L MEAN CELL HGB CONCETRATION 31.5 g/dL 33.0-37.0 L (test code = MCHC) RED CELL DISTRIBUTION WIDTH CV 13.9 % 11.5-14.5 N (test code = RDW) RED CELL DISTRIBUTION WIDTH SD 40.2 fL 37.0-54.0 N (test code = RDW-SD) PLATELET COUNT (test code = 268 x10 3/uL 150-400 N PLT) MEAN PLATELET VOLUME (test code 9.8 fL 7.0-9.0 H = MPV) NEUTROPHIL % (test code = NT%) 64.8 % 56.0-77.0 N IMMATURE GRANULOCYTE % (test 0.4 % 0.0-2.0 N code = IG%) LYMPHOCYTE % (test code = LY%) 27.3 % 14.0-32.0 N MONOCYTE % (test code = MO%) 6.9 % 4.8-9.0 N EOSINOPHIL % (test code = EO%) 0.1 % 0.3-3.7 L BASOPHIL % (test code = BA%) 0.5 % 0.0-2.0 N NUCLEATED RBC % (test code = 0.0 % 0-0 N NRBC%) NEUTROPHIL # (test code = NT#) 7.01 x10 3/uL 2.0-7.6 N IMMATURE GRANULOCYTE # (test 0.04 x10 3/uL 0.00-0.03 H code = IG#) LYMPHOCYTE # (test code = LY#) 2.95 x10 3/uL 1.0-3.8 N MONOCYTE # (test code = MO#) 0.75 x10 3/uL 0.1-0.8 N EOSINOPHIL # (test code = EO#) 0.01 x10 3/uL 0.0-0.2 N BASOPHIL # (test code = BA#) 0.05 x10 3/uL 0.0-0.2 N NUCLEATED RBC # (test code = 0.00 x10 3/uL 0.0-0.1 N NRBC#) COMMENTS: To be done morning of Heart CathGLUCOSE [id number] 22:05:00 Test Item Value Reference Range Interpretation Comments GLUCOSE BEDSIDE (test 240 MG/DL 70-110 H Perfor med by certified code = GLUBED) boom conveyor operator at [facility] GLUCOSE [id number] 21:26:00 Test Item Value Reference Range Interpretation Comments GLUCOSE BEDSIDE (test 193 MG/DL 70-110 H Perfor med by certified code = GLUBED) boom conveyor operator at [facility] GLUCOSE [id number] 18:06:00 Test Item Value Reference Range Interpretation Comments GLUCOSE BEDSIDE (test 176 MG/DL 70-110 H Perfor med by certified code = GLUBED) boom conveyor operator at [facility] GLUCOSE [id number] 17:08:00 Test Item Value Reference Range Interpretation Comments GLUCOSE BEDSIDE (test 259 MG/DL 70-110 H Perfor med by certified code = GLUBED) boom conveyor operator at [facility] GLUCOSE [id number] 12:13:00 Test Item Value Reference Range Interpretation Comments GLUCOSE BEDSIDE (test 231 MG/DL 70-110 H Perfor med by certified code = GLUBED) boom conveyor operator at [facility] GLUCOSE [id number] 08:15:00 Test Item Value Reference Range Interpretation Comments GLUCOSE BEDSIDE (test 152 MG/DL 70-110 H Perfor med by certified code = GLUBED) boom conveyor operator at [facility] GLUCOSE [id number] 21:43:00 Test Item Value Reference Range Interpretation Comments GLUCOSE BEDSIDE (test 197 MG/DL 70-110 H Perfor med by certified code = GLUBED) boom conveyor operator at [facility] GLUCOSE [id number] 16:24:00 Test Item Value Reference Range Interpretation Comments GLUCOSE BEDSIDE (test 154 MG/DL 70-110 H Perfor med by certified code = GLUBED) boom conveyor operator at [facility] GLUCOSE [id number] 07:50:00 Test Item Value Reference Range Interpretation Comments GLUCOSE BEDSIDE (test 91 MG/DL 70-110 N Perfor med by certified code = GLUBED) boom conveyor operator at [facility] COMPREHENSIVE METABOLIC [id number] 07:39:00 Test Item Value Reference Range Interpretation Comments SODIUM (test code = 136 mEq/L 134-147 N NA) POTASSIUM (test code 3.8 mEq/L 3.4-5.0 N = K) CHLORIDE (test code 101 mEq/L 100-108 N = CL) CARBON DIOXIDE (test 25 mEq/l 21-33 N code = CO2) ANION GAP (test code 14 0-20 N = GAP) GLUCOSE (test code = 169 mg/dL 77-141 H NOTE: N EW NORMAL RANGE GLU) BLOOD UREA NITROGEN 15 mg/dL 7-25 N NOTE: NE W NORMAL RANGE (test code = BUN) GLOMERULAR 44.4 90-95 L The Glomerular FILTRATION RATE Filtration R ate is a (test code = GFR) calculated parameterbased on serum Creatinin e, patient age and sex. GFR valuesless than 60 mL/min/1.73 squ are meters are jt cative ofChronic Kidne y Disease. Values less than 15 mL/min/1.73squa re meters indicate Kidney failure. The calculation for GFR is based on the CK D-EPI (2020) calculat ion. This formulais race indifferent and is the recommended for nevaeh for GFRby the [facility] Kidney Foundati on for Adults.The GFR will not calculate i f the sex is unknown or if thepatient's ag e is <18 years. CREATININE (test 1.4 mg/dL 0.6-1.3 H code = CREAT) TOTAL PROTEIN (test 6.6 g/dL 6.4-8.2 N code = PROT) ALBUMIN (test code = 3.00 g/dL 3.4-5.0 L ALB) CALCIUM (test code = 8.6 mg/dL 8.0-10.5 N CA) BILIRUBIN TOTAL 0.20 mg/dL 0.0-1.0 N (test code = BILT) SGOT/AST (test code 24 IUnit/L 8-34 N NOTE: NE W NORMAL RANGE = AST) SGPT/ALT (test code 21 IUnit/L 10-49 N NOTE: NE W NORMAL RANGE = ALT) ALKALINE PHOSPHATASE 126 IUnit/L 20-125 H TOTAL (test code = ALKP) LIPID PROFILE (CORONARY RISK)2022-12-19 07:39:00 Test Item Value Reference Range Interpretation Comments TRIGLYCERIDES (test 188 mg/dL 40-150 H code = TRIG) CHOLESTEROL (test 202 mg/dL <200 H code = CHOL) CHOLESTEROL/HDL 5.21 RATIO 3.27-4.44 H RISK ASSOCIA DAIANA WITH RATIO (test code = CHOL/HDL RATIOS: RISK CHOLHDL) MALE FEMALE1/2 AVERAGE 3.43 3.27AVERAG E 4.97 4.442X AVERAGE 9.55 7.053X AVERAGE 23.39 11.04 NOTE THAT THE REFERENCE VALUE IS RELATEDTO RISK LEVELS RECOMMENDED BY THE NATL.HEART, AVA G, AND BLOOD INST. HDL CHOLESTEROL 38.8 MG/DL 40-60 L Note longo e in (test code = HDL) REFERENCE RANGE due to change in REAGENT.HDL Interpretation < 40.0 mg/dL Low (undesirable, h igh risk)> 60.0 mg/ dL High (desirable, low risk) Reference inter juan for healthy adults was established by theNational Cholesterol Edu cation Program (NCEP). LIPOPROTEIN LDL 147.0 mg/dL 0-100 H <100 OPTIMAL 100-129 (test code = LDL) NEAR OPTIM AL/ABOVE [id number] 89 HIGH>PY=326 MARY Y HIGH*Guidelines provided by the National Choles terol EducationProgra m Adult Treatment Panel III [id number] 07:39:00 Test Item Value Reference Range Interpretation Comments MAGNESIUM (test code = 2.07 mg/dL 1.6-2.6 N NOTE: NEW NORMAL MAG) RANGE TROP-I HIGH [id number] 07:39:00 Test Item Value Reference Range Interpretation Comments TROP-I HIGH 231 ng/L 0-34 HH CAUTION: Units of the SENSITIVITY (test current te st methodology code = TROPIHS) (ng/L) diffe rfrom the prior test meth odology (ng/mL) by a fa ctor of 1000. 99t h Percentile Uppe r Reference Limit (URL): Fe males: 34 ng/LMales: 54 n g/L In order to distin guish acute elevations of h igh sensitivitytrop onin from other clinical conditions, the FourthUnive rsal Definition of M yocardial Infarction stressesclinica l assessment and the demonstration o f a rise and/orfall in s erial troponin result s above the URL. These resu lts were obtained using [employer]. Results from di fferent methodologies s hould not becompared to o ne another as quantitative results and URLs mayvar y by method. CBC W/AUTO [id number] 07:25:00 Test Item Value Reference Range Interpretation Comments WHITE BLOOD CELL (test code = 9.7 x10 3/uL 4.5-11.0 N WBC) RED BLOOD CELL (test code = 4.56 x10 6/uL 3.54-5.02 N RBC) HEMOGLOBIN (test code = HGB) 11.8 g/dL 11.0-15.0 N HEMATOCRIT (test code = HCT) 37.4 % 33.0-45.0 N MEAN CELL VOLUME (test code = 82.0 fL 81.0-99.0 N MCV) MEAN CELL HGB (test code = MCH) 25.9 pg 27.0-33.0 L MEAN CELL HGB CONCETRATION 31.6 g/dL 33.0-37.0 L (test code = MCHC) RED CELL DISTRIBUTION WIDTH CV 13.9 % 11.5-14.5 N (test code = RDW) RED CELL DISTRIBUTION WIDTH SD 40.5 fL 37.0-54.0 N (test code = RDW-SD) PLATELET COUNT (test code = 291 x10 3/uL 150-400 N PLT) MEAN PLATELET VOLUME (test code 10.5 fL 7.0-9.0 H = MPV) NEUTROPHIL % (test code = NT%) 57.6 % 56.0-77.0 N IMMATURE GRANULOCYTE % (test 0.4 % 0.0-2.0 N code = IG%) LYMPHOCYTE % (test code = LY%) 35.1 % 14.0-32.0 H MONOCYTE % (test code = MO%) 6.2 % 4.8-9.0 N EOSINOPHIL % (test code = EO%) 0.1 % 0.3-3.7 L BASOPHIL % (test code = BA%) 0.6 % 0.0-2.0 N NUCLEATED RBC % (test code = 0.0 % 0-0 N NRBC%) NEUTROPHIL # (test code = NT#) 5.60 x10 3/uL 2.0-7.6 N IMMATURE GRANULOCYTE # (test 0.04 x10 3/uL 0.00-0.03 H code = IG#) LYMPHOCYTE # (test code = LY#) 3.41 x10 3/uL 1.0-3.8 N MONOCYTE # (test code = MO#) 0.60 x10 3/uL 0.1-0.8 N EOSINOPHIL # (test code = EO#) 0.01 x10 3/uL 0.0-0.2 N BASOPHIL # (test code = BA#) 0.06 x10 3/uL 0.0-0.2 N NUCLEATED RBC # (test code = 0.00 x10 3/uL 0.0-0.1 N NRBC#) THROMBOPLASTIN TIME [id number] 06:47:00 Test Item Value Reference Range Interpretation Comments THROMBOPLASTIN TIME 39.7 Seconds 25.0-39.5 H Therape utic Range: PARTIAL (test code = 50.4 - 88.3 Seconds PTT) Effective 06/14/2018 TROP-I HIGH [id number] 03:48:00 Test Item Value Reference Range Interpretation Comments TROP-I HIGH 229 ng/L 0-34 HH CAUTION: Units of the SENSITIVITY (test current te st methodology code = TROPIHS) (ng/L) diffe rfrom the prior test meth odology (ng/mL) by a fa ctor of 1000. 99t h Percentile Uppe r Reference Limit (URL): Fe males: 34 ng/LMales: 54 n g/L In order to distin [facility] acute elevations of h igh sensitivitytrop onin from other clinical conditions, the FourthUnive rsal Definition of M yocardial Infarction stressesclinica l assessment and the demonstration o f a rise and/orfall in s erial troponin result s above the URL. These resu lts were obtained using Siemens [employer] IM TnI Hreagent. Results from di fferent methodologies s hould not becompared to o ne another as quantitative results and URLs mayvar y by method. 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 Negative <0.05 ng/mLPositive > /= 0.05 ng/mL Test resu lts should not be used as absolute evidence or lac kof evidence of myocardial i nfarction and should be e valuatedin the context of all the clinical and la boratory dataavailable. In those instances where the test results do nota gree with the clinical ev aluation, additional test s shouldbe performed.An el evated troponin alone is not sufficient to diagnosemyocard ial infarction. Rat her, the patient's clinicalpresent ation (history, physi odilon exam) and ECG should be usedin conjunction wit h troponin in the diagnost ic evaluation ofsu spected myocardial infa rction. A serial sampling protocolis recommended to facilitate the identificat ion of temporalchanges in troponin levels. LIPOPROTEIN [id number] 23:49:00 Test Item Value Reference Range Interpretation Comments LIPOPROTEIN LDL 145.0 mg/dL 0-100 H <100 OPTIMAL 100-129 (test code = LDL) NEAR OPTIM AL/ABOVE [id number] 89 HIGH>QC=958 MARY Y HIGH*Guidelines provided by the National Choles terol EducationProgra m Adult Treatment Panel III TROP-I HIGH [id number] 23:16:00 Test Item Value Reference Range Interpretation Comments TROP-I HIGH 157 ng/L 0-34 HH Critical result called to SENSITIVITY (test LIVIA GILMORE RN by code = TROPIHS) [id number] at 2316 12/18/22Nurse r ead back result and tech confirmed it's correct? Y ESCAUTION: Units of the cu rrent test methodology (ng /L) differfrom the prior test methodology (ng /mL) by a factor of 1000. 99t h Percentile Uppe r Reference Limit (URL): Fe males: 34 ng/LMales: 54 n g/L In order to distin guish acute elevations of h igh sensitivitytrop onin from other clinical conditions, the FourthUnive rsal Definition of M yocardial Infarction stressesclinica l assessment and the demonstration o f a rise and/orfall in s erial troponin result s above the URL. These resu lts were obtained using Siemens [employer] IM TnI Hreagent. Results from di fferent methodologies s hould not becompared to o ne another as quantitative results and URLs mayvar y by method. 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 Negative <0.05 ng/mLPositive > /= 0.05 ng/mL Test resu lts should not be used as absolute evidence or lac kof evidence of myocardial i nfarction and should be e valuatedin the context of all the clinical and la boratory dataavailable. In those instances where the test results do nota gree with the clinical ev aluation, additional test s shouldbe performed.An el evated troponin alone is not sufficient to diagnosemyocard ial infarction. Rat her, the patient's clinicalpresent ation (history, physi odilon exam) and ECG should be usedin conjunction wit h troponin in the diagnost ic evaluation ofsu spected myocardial infa rction. A serial sampling protocolis recommended to facilitate the identificat ion of temporalchanges in troponin levels. - CT ANGIO [id number] 19:23:00 [facility] 1965 Sex: F Name: BIBIANA CASTANO FSED : 1965 Age/S: 57 / F [address] Unit #: [id number] Loc: [place] [address] Phys: Ramon Santos MD Acct: [id number] Dis Date: Status: REG ER PHONE #: Exam Date: 12/18/20221914 FAX #: Reason: eval for dissection EXAMS: CPT CODE: [id number] CT ANGIO CHEST [address]0942 REASON FOR EXAM: eval for dissection EXAM ORDER DATE: 12/18/2022 6:48 PM Ordering M.DMehul: Ramon Santos MD PROCEDURE: - CT ANGIO CHEST Comparison:Chest x-ray earlier today. The report from a previous CT of the abdomen and pelvis, which includes lung bases, performed April 2017 is also available Axial CT images of the chest were obtained with IV contrast. Sagittal and coronal reformats were also obtained. Volume rendered three-dimensional reconstruction of the thoracic aorta was also obtained. No CT dose reduction protocol: Automated exposure control adjustment of mA and/or kV according to patient size or iterative reconstruction dose optimization techniques were used. FINDINGS: Visualized neck: Grossly normal. Airways, Lungs and Pleura: Grossly normal. Heart, great vessels, pulmonary vessels, mediastinum: Mild atherosclerotic calcifications are present in the aortic arch. Atherosclerotic calcifications are also present in the diagonal branch of the left anterior descendingcoronary artery Lymph nodes: No axillary, internal mammary, hilar, or mediastinal adenopathy. Musculoskeletal/chest wall: Grossly normal. Visualized upper abdomen: Cholecystectomy. There is cortical th inning and cystic changes of the right kidney. This was reported on the previous CT of the abdomen and pelvis suggesting a chronic process IMPRESSION: No acute intrathoracic process. Specifically no aortic dissection, atherosclerotic ulcer, or aneurysm. PAGE 1 Signed Report (CONTINUED) Name: BIBIANA CASTANO FSED : 1965 Age/S: 57 / F [address] Unit #: [id number] Loc: [place] [address] Phys: Ramon Santos MD Acct: [id number] Dis Date: Status: REG ER PHONE #: Exam Date: 12/18/2022 1915 FAX #: Reason: eval for dissection EXAMS: CPT CODE: [id number] CT ANGIO CHEST [address]6583 (Continued) Location: 82 at 1923 Reported and signed by: Fernando Rosario M.D. CC: Ramon Santos MD Technologist:RT Noman(R)(CT) CTDI: DLP: Trnscb Date/Time: 12/18/2022 (1922) t.SDR.RR31 Orig Print D/T: S: 12/18/2022 (1926) PAGE2 Signed ReportPOC TROPONIN [id number] 17:33:00 Test Item Value Reference Range Interpretation Comments POC TROPONIN I <0.05 ng/mL <0.05 N Testing perfo rmed at:[facility] [place] (test code = [facility] [address] [facility]) [place], [place] [address]"Point of Care test critical value notification anddocumentatio n is completed by [facility] staff. Negative <0.05 ng/mLPositive > /= 0.05 ng/mL Test resu lts should not be used as absolute evidence or lac kof evidence of myocardial i nfarction and should be e valuatedin the context of all the clinical and la boratory dataavailable. In those instances where the test results do nota gree with the clinical ev aluation, additional test s shouldbe performed.An el evated troponin alone is not sufficient to diagnosemyocard ial infarction. Rat her, the patient's clinicalpresent ation (history, physi odilon exam) and ECG should be usedin conjunction wit h troponin in the diagnost ic evaluation ofsu spected myocardial infa rction. A serial sampling protocolis recommended to facilitate the identificat ion of temporalchanges in troponin levels. POC D DIMER [id number] 16:49:00 Test Item Value Reference Range Interpretation Comments POC D DIMER 463 ng/mL <400 H Testing perform ed at:[facility] (test [place] [facility] Iyrstrdim3342 code = EDDIM) [facility] [place], [place] [address]Ar a id in the evaluation of D VT/PE, the established cut offis 399 ng/mL D-DU. A p ositive result of great er than orequal to 400 ng/mL D-DU alone is not di agnostic of DVT/PE.Howev er, a negative result when combined with a clinicalassessm ent of low pretest probabi lity has been shown to h avea high negative predic tive value for DVT/PE. Sulma t resultsshould b e evaluated in context of all the clin ical andlaboratory d beto available. EXPE CTED VALUES: Normal: <100 to 399 ng/mL Abnor mal: 400 to >5000 ng/mL BASIC METABOLIC [id number] 16:41:00 Test Item Value Reference Range Interpretation Comments SODIUM (test code = NA/ABG) 136 mmol/L 134-147 N POTASSIUM (test code = K/ABG) 4.9 mmol/L 3.4-5.0 N CHLORIDE (test code = CL/ABG) 102 mmol/L 100-108 N CREATININE ABG (test code = 1.1 mg/dL 0.6-1.0 H CREAABG) POC IONIZED CALCIUM (test code = 1.12 MMOL/L 1.12-1.32 N POCCA) POC GLUCOSE (test code = POCGLU) 282 MG/DL 70-110 H POC LACTIC [id number] 16:41:00 Test Item Value Reference Range Interpretation Comments POC LACTIC ACID (test code = 2.8 mmol/l 0.9-1.7 H POCLAC) COMPLETE BLOOD COUNT (CBC)2022-12-18 16:34:00 Test Item Value Reference Range Interpretation Comments POC WHITE BLOOD CELL 10.5 10 3/uL 4.1-10.4 H Testing performed (test code = EDWBC) at:[facility] [address] [place] [id number] POC RED BLOOD CELL 4.97 10 6/uL 3.43-5.21 N (test code = EDRBC) POC HEMOGLOBIN (test 12.8 g/dL 10.9-14.8 N code = EDHGB) POC HEMATOCRIT (test 38.9 % 32.5-46.2 N code = EDHCT) POC MEAN CELL VOLUME 78.3 fL 82.5-98.0 L (test code = EDMCV) POC MEAN CELL 25.8 pg 26.1-32.9 L HEMOGLOBIN (test code = EDMCH) POC MEAN CELL HGB CONC 32.9 g/dL 30.7-34.9 N (test code = EDMCHC) POC PLATELET COUNT 275 10 3/uL 136-388 N (test code = EDPLT) POC RED CELL DISTRIB 14.6 % 11.8-16.4 N WIDTH (test code = EDRDW-CV) POC LYMPHOCYTES % 26.8 % 13.9-44.4 N (test code = EDLYM%) POC MIXED CELLS % 3.4 % 4.7-13.3 L (test code = EDMXD%) POC NEUTROPHILS % 69.8 % 49.1-76.9 N (test code = EDNEUT%) POC LYMPHOCYTES # 2.80 k/mm3 1.0-3.4 N (test code = EDLYM#) POC MIXED CELLS # 0.4 10 3/uL 0.3-1.1 N (test code = EDMXD#) POC NEUTROPHILS # 7.30 10 3/uL 2.4-7.5 N (test code = EDNEUT#) POC MEAN PLATELET 10.4 fL 7.9-13.3 N VOLUME (test code = EDMPV) - XR CHEST 1 [id number] 16:34:00 [facility] : 1965 Sex: F FAX: Ramon Santos MD [phone] [place]: ID St: PRE Name: BIBIANA CASTANO [place] FSED : 1965 Age/S: 57/F [address] Unit #: [id number] Loc: [place] [address] Phys: Ramon Santos MD Acct: [id number] Dis Date: Status: PRE ER PHONE #: Exam Date: 12/18/2022 5764 FAX #: Reason: Chest Pain EXAMS: CPT CODE: [id number] XR CHEST 1 V 73912 EXAMINATION: - XR CHEST 1 V. LOCATION: B2. HISTORY: Chest Pain. COMPARISON: Radiograph dated 06/06/2019. TECHNIQUE: Single AP view of the chest was obtained. FINDINGS: The heart is mildly enlarged in size. The lungs are clear. No acute osseous abnormality is identified. IMPRESSION: Mild cardiomegaly with no acute pulmonary process. at 1634 Reported and signed by: Alecia Lester M.D. CC: Ramon Santos MD Technologist: RT Jenae(R)(CT) Trnscrd Date/Time/By: 12/18/2022 (9354) : By: [email or web address] Orig Print D/T: S: 12/18/2022 (0704) PAGE 1 Signed ReportBLOOD [id number] 01:00:35 Test Item Value Reference Range Interpretation Comments CULTURE (BEAKER) (test No growth in 5 days code = 1095) The specimen volume collected for this blood culture was below the optimum (10 mL per bottle or 20 mL total). Use of lower volumes may adversely affect recovery and/or detection times of some organisms.BLOOD [id number] 01:00:35 Test Item Value Reference Range Interpretation Comments CULTURE (BEAKER) (test No growth in 5 days code = 1095) Urine [id number] 08:47:56 Test Item Value Reference Range Interpretation Comments Result (test code = >100,000 col/mL skin 6463-4) die[facility] [id number] 08:47:56 Test Item Value Reference Range Interpretation Comments Result (test code = >100,000 col/mL skin 6463-4) diego [facility] [id number] 08:47:56 Test Item Value Reference Range Interpretation Comments Result (test code = >100,000 col/mL skin 6463-4) diego [facility] [id number] 08:47:56 Test Item Value Reference Range Interpretation Comments Result (test code = >100,000 col/mL skin 6463-4) diego [facility] [id number] 08:47:56 Test Item Value Reference Range Interpretation Comments Result (test code = >100,000 col/mL skin 6463-4) diego [facility] [id number] 08:47:56 Test Item Value Reference Range Interpretation Comments Result (test code = >100,000 col/mL skin 6463-4) diego [facility] [id number] 08:47:56 Test Item Value Reference Range Interpretation Comments Result (test code = >100,000 col/mL skin 6463-4) diego [facility], [id number] 03:42:00REFERRAVIS RASHID: MALENA [place] Reason for Exam - Click Yes and Enter Reason Below->Noleft flank pain with history of stonesIs this for enterography?->NoPlease specify:- >Renal Stone ProtocolWill this procedure require oral contrast?->No [facility] 1965 Sex: FFINAL REPORT CLINICAL HISTORY: Unlisted Reason for Exam FINDINGS: Multiple axial images of the abdomen and pelvis were performed without intravenous contrast. Oral contrast was not given. This exam was performed according to our departmental dose-optimization program, which includesautomated exposure control, adjustment of the mA and/or kV according to patient size and/or use of the iterative reconstruction technique. Comparison:08/10/2020 Lower chest: Clear lungs. No pleural effusion or pneumothorax. Atherosclerotic coronary artery calcification. Liver: Hepatomegaly, with the right hepatic margin measuring 20 cm in craniocaudal dimension at the right midclavicular line. Hepaticsteatosis. Gallbladder and biliary tree: Prior cholecystectomy. Spleen: No significant findings. Adrenal Glands: No significant findings. Kidneys and ureters: Chronic-appearing right hydronephrosis with associated parenchymal thinning. There is a 1.2 cm stone in the right renal pelvis. There are several nonobstructing left kidney stones measuring up to 4 mm. Stomach and Duodenum: No significant findings. Pancreas: No significant findings. Bowel: No significant findings. Appendix: Normal. Bladder: Decompressed Major vascular structures: Atherosclerotic calcifications. Reproductive organs: No significant findings. Other: No free air, fluid or adenopathy Skeleton: No acute bony abnormality. IMPRESSION: Similar appearance of chronic right hydronephrosis with associated parenchymal thinning. Bilateralnonobstructing kidney stones. Hepatomegaly and hepatic steatosis. Prior cholecystectomy. Signed: Demarcus Caro Verified Date/Time: 02/06/2022 03:42:55 [facility] pelvis without contrast 2022-02-06 03:42:00FINAL REPORT CLINICAL HISTORY: Unlisted Reason for Exam FINDINGS: Multiple axial images of the abdomen and pelvis were performed without intravenous contrast. Oral contrast was notgiven. This exam was performed according to our departmental dose-optimization program, which includes automated exposure control, adjustment of the mA and/or kV according to patient size and/or use ofthe iterative reconstruction technique. Comparison:08/10/2020 Lower chest: Clear lungs. No pleural effusion or pneumothorax. Atherosclerotic coronary artery calcification. Liver: Hepatomegaly, with the right hepatic margin measuring 20 cm in craniocaudal dimension at the right midclavicular line. Hepatic steatosis. Gallbladder and biliary tree: Prior cholecystectomy. Spleen: No significant findings. Adrenal Glands: No significant findings. Kidneys and ureters: Chronic-appearing right hydronephrosis with associated parenchymal thinning. There is a 1.2 cm stone in the right renal pelvis. There are several nonobstructing left kidney stones measuring up to 4 mm. Stomach and Duodenum: No significant findings. Pancreas: No significant findings. Bowel: No significant findings. Appendix: Normal. Bladder: Decompressed Major vascular structures: Atherosclerotic calcifications. Reproductive organs: No significant findings. Other: No free air, fluid or adenopathy Skeleton: No acute bony abnormality. IMPRESSION: Similar appearance of chronic right hydronephrosis with associated parenchymal thinning. Bilateral nonobstructing kidney stones. Hepatomegaly and hepatic steatosis. Prior cholecystectomy. Signed: Caro, Demarcus MDReport Verified Date/Time: 02/06/2022 03:42:55 [facility]PRE[facility] [id number] 01:02:36 Test Item Value Reference Range Interpretation Comments TOTAL PROTEIN 7.6 gm/dL 6.0-8.3 Specimen sligh tly (BEAKER) (test hemolyzed code = 770) ALBUMIN (BEAKER) 3.8 g/dL 3.5-5.0 Specimen sl ightly (test code = 1145) hemolyzed ALKALINE 135 U/L 40-150 PHOSPHATASE (BEAKER) (test code = 346) BILIRUBIN TOTAL 0.5 mg/dL 0.2-1.2 Specimen sli ghtly (BEAKER) (test hemolyzed code = 377) SODIUM (BEAKER) 129 meq/L 136-145 L (test code = 381) POTASSIUM (BEAKER) 4.9 meq/L 3.5-5.1 Specimen slightly (test code = 379) hemolyzed CHLORIDE (BEAKER) 101 meq/L 98-107 (test code = 382) CO2 (BEAKER) (test 17 meq/L 22-29 L code = 355) BLOOD UREA 26 mg/dL 7-21 H NITROGEN (BEAKER) (test code = 354) CREATININE 1.44 mg/dL 0.57-1.25 H Specimen slight ly (BEAKER) (test hemolyzed code = 358) GLUCOSE RANDOM 267 mg/dL 70-105 H (BEAKER) (test code = 652) CALCIUM (BEAKER) 9.1 mg/dL 8.4-10.2 (test code = 697) AST (SGOT) 26 U/L 5-34 Specimen slight ly (BEAKER) (test hemolyzed code = 353) ALT (SGPT) 30 U/L 6-55 Specimen slight ly (BEAKER) (test hemolyzed code = 347) EGFR (BEAKER) 43 Interpretatio n of eGFR (test code = 1092) mL/min/1.[address] age Description sq m Result G1 Faith l or high >=90 G2 Mildly decreased 60-89 G3a Mildl y to moderately 45-5 9 G3b Moderately to s everely 30-44 G4 Severl y decreased 15-29 G5 Kidne y failure <15Reported eGF R is based on the CKD-EPI 2020 equation that d oes not use a race coefficientEsti mated GFR is not as accur ate as Creatinine Hilaria abdalla in predicting glom erular filtration rate . Estimated GFR is not appl icable for dialysis patien ts Planning Analyst ID - KWAN LUrinalysis w/Microscopic + Reflex to [id number] 00:44:18 Test Item Value Reference Range Interpretation Comments Color, UA (test code Yellow = 5778-6) Clarity, UA (test Hazy code = 5767-9) Specific [place], UA 1.014 1.001-1.035 (test code = 5811-5) pH, UA (test code = 6.0 5.0-8.0 5803-2) Protein, UA (test 30 mg/dL Negative A code = 67416-7) Glucose, UA (test 100 mg/dL Negative A code = 365) Ketones, UA (test Negative Negative code = 2514-8) Bilirubin, UA (test Negative Negative code = 62905-5) Blood, UA (test code Small Negative A = 17240-5) Nitrite, UA (test Negative Negative code = 5802-4) Leukocytes, UA (test Large Negative A code = 5799-2) Urobilinogen, UA 0.2 0.2-1.0 (test code = 52555-0) RBC, UA (test code = 5 See_Comment [Autom ated 54242-5) message] The system which generated this result transmit daiana reference range : /HPF. The reference range was not used to interpret this result as normal/abnormal . WBC, UA (test code = See_Comment Wbc clu mps seen 5821-4) [Automated message] The system which generated this result transmit daiana reference range : /HPF. The reference range was not used to interpret this result as normal/abnormal . Bacteria, UA (test Many code = 70677-5) Squam Epithel, UA 1 See_Comment [Automate d (test code = 15392-9) messag e] The system which generated this result transmit daiana reference range : /HPF. The reference range was not used to interpret this result as normal/abnormal . Specimen Source (test code = 2795) EDWIGE (test code = EDWIGE) Planning Analyst ID - [auto]Planning Analyst ID - tech Lab Interpretation Abnormal (test code = 43178-7) [facility]inal[facility] w/Microscopic + Reflex to Culture 2022-02-06 00:44:18 Test Item Value Reference Range Interpretation Comments Color, UA (test code Yellow = 5778-6) Clarity, UA (test Hazy code = 5767-9) Specific [place], UA 1.014 1.001-1.035 (test code = 5811-5) pH, UA (test code = 6.0 5.0-8.0 5803-2) Protein, UA (test 30 mg/dL Negative A code = 42678-3) Glucose, UA (test 100 mg/dL Negative A code = 365) Ketones, UA (test Negative Negative code = 2514-8) Bilirubin, UA (test Negative Negative code = 52524-5) Blood, UA (test code Small Negative A = 74869-8) Nitrite, UA (test Negative Negative code = 5802-4) Leukocytes, UA (test Large Negative A code = 5799-2) Urobilinogen, UA 0.2 0.2-1.0 (test code = 80303-7) RBC, UA (test code = 5 See_Comment [Autom ated 68889-5) message] The system which generated this result transmit daiana reference range : /HPF. The reference range was not used to interpret this result as normal/abnormal . WBC, UA (test code = See_Comment Wbc clu mps seen 5821-4) [Automated message] The system which generated this result transmit daiana reference range : /HPF. The reference range was not used to interpret this result as normal/abnormal . Bacteria, UA (test Many code = 88269-6) Squam Epithel, UA 1 See_Comment [Automate d (test code = 28880-5) messag e] The system which generated this result transmit daiana reference range : /HPF. The reference range was not used to interpret this result as normal/abnormal . Specimen Source (test code = 2795) EDWIGE (test code = EDWIGE) Planning Analyst ID - [auto]Planning Analyst ID - tech Lab Interpretation Abnormal (test code = 43009-8) [facility] w/Microscopic + Reflex to Culture 2022-02-06 00:44:18 Test Item Value Reference Range Interpretation Comments Color, UA (test code Yellow = 5778-6) Clarity, UA (test Hazy code = 5767-9) Specific [place], UA 1.014 1.001-1.035 (test code = 5811-5) pH, UA (test code = 6.0 5.0-8.0 5803-2) Protein, UA (test 30 mg/dL Negative A code = 24012-4) Glucose, UA (test 100 mg/dL Negative A code = 365) Ketones, UA (test Negative Negative code = 2514-8) Bilirubin, UA (test Negative Negative code = 35857-1) Blood, UA (test code Small Negative A = 58348-7) Nitrite, UA (test Negative Negative code = 5802-4) Leukocytes, UA (test Large Negative A code = 5799-2) Urobilinogen, UA 0.2 0.2-1.0 (test code = 61857-8) RBC, UA (test code = 5 See_Comment [Autom ated 69978-9) message] The system which generated this result transmit daiana reference range : /HPF. The reference range was not used to interpret this result as normal/abnormal . WBC, UA (test code = See_Comment Wbc clu mps seen 5821-4) [Automated message] The system which generated this result transmit daiana reference range : /HPF. The reference range was not used to interpret this result as normal/abnormal . Bacteria, UA (test Many code = 51291-2) Squam Epithel, UA 1 See_Comment [Automate d (test code = 53896-1) messag e] The system which generated this result transmit daiana reference range : /HPF. The reference range was not used to interpret this result as normal/abnormal . Specimen Source (test code = 2795) EDWIGE (test code = EDWIGE) Planning Analyst ID - [auto]Planning Analyst ID - tech Lab Interpretation Abnormal (test code = 90600-6) [facility] Culture 2022-02-06 00:44:18 Test Item Value Reference Range Interpretation Comments Color, UA (test code Yellow = 5778-6) Clarity, UA (test Hazy code = 5767-9) Specific [place], UA 1.014 1.001-1.035 (test code = 5811-5) pH, UA (test code = 6.0 5.0-8.0 5803-2) Protein, UA (test 30 mg/dL Negative A code = 79897-9) Glucose, UA (test 100 mg/dL Negative A code = 365) Ketones, UA (test Negative Negative code = 2514-8) Bilirubin, UA (test Negative Negative code = 81482-4) Blood, UA (test code Small Negative A = 38179-3) Nitrite, UA (test Negative Negative code = 5802-4) Leukocytes, UA (test Large Negative A code = 5799-2) Urobilinogen, UA 0.2 0.2-1.0 (test code = 81619-3) RBC, UA (test code = 5 See_Comment [Autom ated 04057-4) message] The system which generated this result transmit daiana reference range : /HPF. The reference range was not used to interpret this result as normal/abnormal . WBC, UA (test code = See_Comment Wbc clu mps seen 5821-4) [Automated message] The system which generated this result transmit daiana reference range : /HPF. The reference range was not used to interpret this result as normal/abnormal . Bacteria, UA (test Many code = 17465-0) Squam Epithel, UA 1 See_Comment [Automate d (test code = 51867-0) messag e] The system which generated this result transmit daiana reference range : /HPF. The reference range was not used to interpret this result as normal/abnormal . Specimen Source (test code = 2795) EDWIGE (test code = EDWIGE) Planning Analyst ID - [auto]Planning Analyst ID - tech Lab Interpretation Abnormal (test code = 22798-6) [facility] Culture 2022-02-06 00:44:18 Test Item Value Reference Range Interpretation Comments Color, UA (test code Yellow = 5778-6) Clarity, UA (test Hazy code = 5767-9) Specific [place], UA 1.014 1.001-1.035 (test code = 5811-5) pH, UA (test code = 6.0 5.0-8.0 5803-2) Protein, UA (test 30 mg/dL Negative A code = 22531-4) Glucose, UA (test 100 mg/dL Negative A code = 365) Ketones, UA (test Negative Negative code = 2514-8) Bilirubin, UA (test Negative Negative code = 53161-7) Blood, UA (test code Small Negative A = 09144-3) Nitrite, UA (test Negative Negative code = 5802-4) Leukocytes, UA (test Large Negative A code = 5799-2) Urobilinogen, UA 0.2 0.2-1.0 (test code = 23233-2) RBC, UA (test code = 5 See_Comment [Autom ated 73232-1) message] The system which generated this result transmit daiana reference range : /HPF. The reference range was not used to interpret this result as normal/abnormal . WBC, UA (test code = See_Comment Wbc clu mps seen 5821-4) [Automated message] The system which generated this result transmit daiana reference range : /HPF. The reference range was not used to interpret this result as normal/abnormal . Bacteria, UA (test Many code = 59705-0) Squam Epithel, UA 1 See_Comment [Automate d (test code = 33690-8) messag e] The system which generated this result transmit daiana reference range : /HPF. The reference range was not used to interpret this result as normal/abnormal . Specimen Source (test code = 2795) EDWIGE (test code = EDWIGE) Planning Analyst ID - [auto]Planning Analyst ID - tech Lab Interpretation Abnormal (test code = 07868-2) [facility] Reflex [facility] Culture 2022-02-06 00:44:18 Test Item Value Reference Range Interpretation Comments Color, UA (test code Yellow = 5778-6) Clarity, UA (test Hazy code = 5767-9) Specific [place], UA 1.014 1.001-1.035 (test code = 5811-5) pH, UA (test code = 6.0 5.0-8.0 5803-2) Protein, UA (test 30 mg/dL Negative A code = 26161-4) Glucose, UA (test 100 mg/dL Negative A code = 365) Ketones, UA (test Negative Negative code = 2514-8) Bilirubin, UA (test Negative Negative code = 74431-3) Blood, UA (test code Small Negative A = 16526-5) Nitrite, UA (test Negative Negative code = 5802-4) Leukocytes, UA (test Large Negative A code = 5799-2) Urobilinogen, UA 0.2 0.2-1.0 (test code = 48772-8) RBC, UA (test code = 5 See_Comment [Autom ated 31842-6) message] The system which generated this result transmit daiana reference range : /HPF. The reference range was not used to interpret this result as normal/abnormal . WBC, UA (test code = See_Comment Wbc clu mps seen 5821-4) [Automated message] The system which generated this result transmit daiana reference range : /HPF. The reference range was not used to interpret this result as normal/abnormal . Bacteria, UA (test Many code = 59638-1) Squam Epithel, UA 1 See_Comment [Automate d (test code = 92120-1) messag e] The system which generated this result transmit daiana reference range : /HPF. The reference range was not used to interpret this result as normal/abnormal . Specimen Source (test code = 2795) EDWIGE (test code = EDWIGE) Planning Analyst ID - [auto]Planning Analyst ID - tech Lab Interpretation Abnormal (test code = 74864-2) [facility] Reflex [facility] Culture 2022-02-06 00:44:18 Test Item Value Reference Range Interpretation Comments Color, UA (test code Yellow = 5778-6) Clarity, UA (test Hazy code = 5767-9) Specific [place], UA 1.014 1.001-1.035 (test code = 5811-5) pH, UA (test code = 6.0 5.0-8.0 5803-2) Protein, UA (test 30 mg/dL Negative A code = 22387-7) Glucose, UA (test 100 mg/dL Negative A code = 365) Ketones, UA (test Negative Negative code = 2514-8) Bilirubin, UA (test Negative Negative code = 58374-3) Blood, UA (test code Small Negative A = 19722-2) Nitrite, UA (test Negative Negative code = 5802-4) Leukocytes, UA (test Large Negative A code = 5799-2) Urobilinogen, UA 0.2 0.2-1.0 (test code = 91459-1) RBC, UA (test code = 5 See_Comment [Autom ated 50899-0) message] The system which generated this result transmit daiana reference range : /HPF. The reference range was not used to interpret this result as normal/abnormal . WBC, UA (test code = See_Comment Wbc clu mps seen 5821-4) [Automated message] The system which generated this result transmit daiana reference range : /HPF. The reference range was not used to interpret this result as normal/abnormal . Bacteria, UA (test Many code = 87688-8) Squam Epithel, UA 1 See_Comment [Automate d (test code = 91013-7) messag e] The system which generated this result transmit daiana reference range : /HPF. The reference range was not used to interpret this result as normal/abnormal . Specimen Source (test code = 2795) EDWIGE (test code = EDWIGE) Planning Analyst ID - [auto]Planning Analyst ID - tech Lab Interpretation Abnormal (test code = 79776-4) [facility] [id number] 00:44:18 Test Item Value Reference Range Interpretation Comments COLOR (BEAKER) (test code = Yellow 470) CLARITY (BEAKER) (test code Hazy = 469) SPECIFIC GRAVITY UA (BEAKER) 1.014 1.001-1.035 (test code = 468) PH UA (BEAKER) (test code = 6.0 5.0-8.0 467) PROTEIN UA (BEAKER) (test 30 mg/dL Negative A code = 464) GLUCOSE UA (BEAKER) (test 100 mg/dL Negative A code = 365) KETONES UA (BEAKER) (test Negative Negative code = 371) BILIRUBIN UA (BEAKER) (test Negative Negative code = 462) BLOOD UA (BEAKER) (test code Small Negative A = 461) NITRITE UA (BEAKER) (test Negative Negative code = 465) LEUKOCYTE ESTERASE UA Large Negative A (BEAKER) (test code = 466) UROBILINOGEN UA (BEAKER) 0.2 0.2-1.0 (test code = 463) RBC UA (BEAKER) (test code = 5 /HPF 519) WBC UA (BEAKER) (test code = > /HPF Wbc clumps seen 520) BACTERIA (BEAKER) (test code Many = 517) SQUAMOUS EPITHELIAL (BEAKER) 1 /HPF (test code = 516) SOURCE(BEAKER) (test code = 2795) Planning Analyst ID - [auto]Planning Analyst ID - techNIMOCTJUAN ACID, [id number] 23:52:10 Test Item Value Reference Range Interpretation Comments LACTATE BLOOD VENOUS 1.96 mmol/L 0.50-2.20 Specime n markedly (2) (BEAKER) (test hemolyzed code = 2872) Planning Analyst ID - [id number] 23:36:33 Test Item Value Reference Range Interpretation Comments PARTIAL THROMBOPLASTIN TIME 22.0 seconds 22.5-36.0 L (BEAKER) (test code = 760) PROTHROMBIN TIME/[id number] 23:36:11 Test Item Value Reference Range Interpretation Comments PROTIME (BEAKER) 13.0 seconds 11.9-14.2 (test code = 759) INR (BEAKER) (test 1.04 See_Comment [Automat ed message] code = 370) The system [place] generated this result transmitted ref erence range: <=5.90. The reference range was not used to int erpret this result as normal/abnormal . RECOMMENDED COUMADIN/WARFARIN INR THERAPY RANGESSTANDARD DOSE: 2.0 - 3.0 Includes: PROPHYLAXIS for venous thrombosis, systemic embolization; TREATMENT for venous thrombosis and/or pulmonary embolus.HIGH RISK: Target INR is 2.5-3.5 for patients with mechanical heart valves.CBC W/PLT COUNT & AUTO [id number] 23:32:28 Test Item Value Reference Range Interpretation Comments WHITE BLOOD CELL COUNT (BEAKER) 14.8 K/ L 3.5-10.5 H (test code = 775) RED BLOOD CELL COUNT (BEAKER) 4.68 M/ L 3.93-5.22 (test code = 761) HEMOGLOBIN (BEAKER) (test code = 13.0 GM/DL 11.2-15.7 410) HEMATOCRIT (BEAKER) (test code = 38.4 % 34.1-44.9 411) MEAN CORPUSCULAR VOLUME (BEAKER) 82 fL 79-95 (test code = 753) MEAN CORPUSCULAR HEMOGLOBIN 27.8 pg 25.6-32.2 (BEAKER) (test code = 751) MEAN CORPUSCULAR HEMOGLOBIN CONC 33.9 GM/DL 32.2-35.5 (BEAKER) (test code = 752) RED CELL DISTRIBUTION WIDTH 13.7 % 11.7-14.4 (BEAKER) (test code = 412) PLATELET COUNT (BEAKER) (test 183 K/CU MM 150-450 code = 756) MEAN PLATELET VOLUME (BEAKER) 11.2 fL 9.4-12.3 (test code = 754) NUCLEATED RED BLOOD CELLS 0 /100 WBC 0-0 (BEAKER) (test code = 413) NEUTROPHILS RELATIVE PERCENT 81 % (BEAKER) (test code = 429) LYMPHOCYTES RELATIVE PERCENT 12 % (BEAKER) (test code = 430) MONOCYTES RELATIVE PERCENT 7 % (BEAKER) (test code = 431) EOSINOPHILS RELATIVE PERCENT 0 % (BEAKER) (test code = 432) BASOPHILS RELATIVE PERCENT 0 % (BEAKER) (test code = 437) NEUTROPHILS ABSOLUTE COUNT 11.96 K/ L 1.56-6.13 H (BEAKER) (test code = 670) LYMPHOCYTES ABSOLUTE COUNT 1.80 K/ L 1.18-3.74 (BEAKER) (test code = 414) MONOCYTES ABSOLUTE COUNT (BEAKER) 0.96 K/ L 0.24-0.36 H (test code = 415) EOSINOPHILS ABSOLUTE COUNT 0.01 K/ L 0.04-0.36 L (BEAKER) (test code = 416) BASOPHILS ABSOLUTE COUNT (BEAKER) 0.06 K/ L 0.01-0.08 (test code = 417) IMMATURE GRANULOCYTES-RELATIVE 0.30 % 0.00-1.00 PERCENT (BEAKER) (test code = 2801) RAD, KNEE, COMPLETE (4 VIEWS), [id number] 16:46:00REFERRING : MALENA Saldivar for exam:->FALLTru for exam:->LEG PAIN [facility]GE : 1965 Sex: FFINAL REPORT TECHNIQUE: Four views of the left knee. INDICATION: 55-year-old woman with leg pain after fall. COMPARISON: None. FINDINGS:No acute fractures or dislocations.Joint spaces are within normal limits.Possible small suprapatellar joint effusion. IMPRESSION:No acute osseous abnormalities of the left knee. Signed: Robert Manzanares MDReport Verified Date/Time: 10/05/2020 16:46:57 Reading Location: [facility] C013Y CT Body Reading Room BLOOD CULTURE 2020-08-15 18:01:00 Test Item Value Reference Range Interpretation Comments CULTURE (BEAKER) (test No growth in 5 days code = 1095) BLOOD [id number] 18:01:00 Test Item Value Reference Range Interpretation Comments CULTURE (BEAKER) (test No growth in 5 days code = 1095) POCT-GLUCOSE [id number] 11:50:00 Test Item Value Reference Range Interpretation Comments POC-GLUCOSE METER 217 mg/dL 70-110 H : TESTED A T [facility] 6720 (BEAKER) (test code = [facility], 1538) 67481: Planning Analyst/Techni john ID = [id number] for Wa rsi (pca2), [facility] POCT-GLUCOSE [id number] 08:18:00 Test Item Value Reference Range Interpretation Comments POC-GLUCOSE METER 172 mg/dL 70-110 H : TESTED A T [facility] 6720 (BEAKER) (test code = [facility], 1538) 10011: Planning Analyst/Techni john ID = [id number] for Wa rsi (pca2), [facility] BASIC METABOLIC [id number] 07:01:00 Test Item Value Reference Range Interpretation Comments SODIUM (BEAKER) 135 meq/L 136-145 L (test code = 381) POTASSIUM (BEAKER) 4.9 meq/L 3.5-5.1 (test code = 379) CHLORIDE (BEAKER) 108 meq/L 98-107 H (test code = 382) CO2 (BEAKER) (test 21 meq/L 22-29 L code = 355) BLOOD UREA NITROGEN 19 mg/dL 7-21 (BEAKER) (test code = 354) CREATININE (BEAKER) 1.24 mg/dL 0.57-1.25 (test code = 358) GLUCOSE RANDOM 208 mg/dL 70-105 H (BEAKER) (test code = 652) CALCIUM (BEAKER) 8.8 mg/dL 8.4-10.2 (test code = 697) EGFR (BEAKER) (test 45 mL/min/1.73 ESTIMA DAIANA GFR IS code = 1092) sq m NOT ACCURATE CREATININE CLEARANCE IN PREDICTING GLOMERULAR FILTRATION RATE . ESTIMATED GFR I S NOT APPLICABLE FOR DIALYSIS PATIEN TS. Planning Analyst ID - YOLA MCBC W/PLT COUNT & AUTO [id number] 06:24:00 Test Item Value Reference Range Interpretation Comments WHITE BLOOD CELL COUNT (BEAKER) 9.0 K/ L 3.5-10.5 (test code = 775) RED BLOOD CELL COUNT (BEAKER) 4.19 M/ L 3.93-5.22 (test code = 761) HEMOGLOBIN (BEAKER) (test code = 11.5 GM/DL 11.2-15.7 410) HEMATOCRIT (BEAKER) (test code = 35.6 % 34.1-44.9 411) MEAN CORPUSCULAR VOLUME (BEAKER) 85.0 fL 79.4-94.8 (test code = 753) MEAN CORPUSCULAR HEMOGLOBIN 27.4 pg 25.6-32.2 (BEAKER) (test code = 751) MEAN CORPUSCULAR HEMOGLOBIN CONC 32.3 GM/DL 32.2-35.5 (BEAKER) (test code = 752) RED CELL DISTRIBUTION WIDTH 13.4 % 11.7-14.4 (BEAKER) (test code = 412) PLATELET COUNT (BEAKER) (test 183 K/CU MM 150-450 code = 756) MEAN PLATELET VOLUME (BEAKER) 10.5 fL 9.4-12.3 (test code = 754) NUCLEATED RED BLOOD CELLS 0 /100 WBC 0-0 (BEAKER) (test code = 413) NEUTROPHILS RELATIVE PERCENT 61 % (BEAKER) (test code = 429) LYMPHOCYTES RELATIVE PERCENT 30 % (BEAKER) (test code = 430) MONOCYTES RELATIVE PERCENT 8 % (BEAKER) (test code = 431) EOSINOPHILS RELATIVE PERCENT 1 % (BEAKER) (test code = 432) BASOPHILS RELATIVE PERCENT 1 % (BEAKER) (test code = 437) NEUTROPHILS ABSOLUTE COUNT 5.48 K/ L 1.56-6.13 (BEAKER) (test code = 670) LYMPHOCYTES ABSOLUTE COUNT 2.67 K/ L 1.18-3.74 (BEAKER) (test code = 414) MONOCYTES ABSOLUTE COUNT (BEAKER) 0.69 K/ L 0.24-0.36 H (test code = 415) EOSINOPHILS ABSOLUTE COUNT 0.09 K/ L 0.04-0.36 (BEAKER) (test code = 416) BASOPHILS ABSOLUTE COUNT (BEAKER) 0.05 K/ L 0.01-0.08 (test code = 417) IMMATURE GRANULOCYTES-RELATIVE 1 % 0-1 PERCENT (BEAKER) (test code = 2801) POCT-GLUCOSE [id number] 21:15:00 Test Item Value Reference Range Interpretation Comments POC-GLUCOSE METER 228 mg/dL 70-110 H : TESTED A T [facility] 6720 (BEAKER) (test code = [place], 1538) 48882: Planning Analyst/Techni john ID = [id number] for AN [place], [facility] BASIC METABOLIC [id number] 19:37:00 Test Item Value Reference Range Interpretation Comments SODIUM (BEAKER) 132 meq/L 136-145 L (test code = 381) POTASSIUM (BEAKER) 4.8 meq/L 3.5-5.1 Specimen slightly (test code = 379) hemolyzed CHLORIDE (BEAKER) 105 meq/L 98-107 (test code = 382) CO2 (BEAKER) (test 17 meq/L 22-29 L code = 355) BLOOD UREA NITROGEN 20 mg/dL 7-21 (BEAKER) (test code = 354) CREATININE (BEAKER) 1.32 mg/dL 0.57-1.25 H Specimen slightly (test code = 358) hemolyzed GLUCOSE RANDOM 229 mg/dL 70-105 H (BEAKER) (test code = 652) CALCIUM (BEAKER) 8.9 mg/dL 8.4-10.2 (test code = 697) EGFR (BEAKER) (test 42 mL/min/1.73 ESTIMA DAIANA GFR IS code = 1092) sq m NOT ACCURATE CREATININE CLEARANCE IN PREDICTING GLOMERULAR FILTRATION RATE . ESTIMATED GFR I S NOT APPLICABLE FOR DIALYSIS PATIEN TS. Planning Analyst ID - DBPOCT-GLUCOSE [id number] 16:25:00 Test Item Value Reference Range Interpretation Comments POC-GLUCOSE METER 205 mg/dL 70-110 H : TESTED A T [facility] 6720 (BEAKER) (test code = [facility], 1538) 78115: Planning Analyst/Techni john ID = [id number] for Wi lliams, Areiona POCT-GLUCOSE [id number] 11:59:00 Test Item Value Reference Range Interpretation Comments POC-GLUCOSE METER 255 mg/dL 70-110 H : TESTED A T [facility] 6720 (BEAKER) (test code = [facility], 1538) 32835: Planning Analyst/Techni john ID = [id number] for Wi lliams, Areiona POCT-GLUCOSE [id number] 07:21:00 Test Item Value Reference Range Interpretation Comments POC-GLUCOSE METER 224 mg/dL 70-110 H : TESTED A T [facility] 6720 (BEAKER) (test code = [facility], 1538) 00473: Planning Analyst/Techni john ID = [id number] for Wi lliams, Areiona POCT-GLUCOSE [id number] 21:07:00 Test Item Value Reference Range Interpretation Comments POC-GLUCOSE METER 263 mg/dL 70-110 H : TESTED A T [facility] 6720 (BEAKER) (test code = [facility], 1538) 34343: Planning Analyst/Techni john ID = [id number] for AN MED [facility]O POCT-GLUCOSE [id number] 16:58:00 Test Item Value Reference Range Interpretation Comments POC-GLUCOSE METER 243 mg/dL 70-110 H : TESTED A T [facility] 6720 (BEAKER) (test code = [facility], 1538) 57435: Planning Analyst/Techni john ID = [id number] for Ratna Shah POCT-GLUCOSE [id number] 12:05:00 Test Item Value Reference Range Interpretation Comments POC-GLUCOSE METER 287 mg/dL 70-110 H : TESTED A T [facility] 6720 (SCAR) (test code = [facility] [place], 1538) 16414: Planning Analyst/Techni john ID = [id number] for Ratna Shah SARS-COV2/RT-PCR ([facility])2020-08-11 10:39:00 Test Item Value Reference Range Interpretation Comments SARS-COV2/RT-PCR (test Negative Not Detected, Negative, code = 9536000) See external report for linked test SARS-COV-[address] [facility] (test code = 2336041) Negative result for this test determines that SARS-CoV-2 RNA was not present in the specimen above the Limit of Detection (LOD). However, Negative results do not preclude SARS-CoV-2 infection and should not be used as the sole basis for treatment or patient management decisions. Negative results must be combined with clinical observations, patient history, and epidemiological information. A false negative result may occur if a specimen is improperly collected, transported or handled. A false negative result should be considered if patient's recent exposures or clinical presentation indicate that COVID-19 (SARS-CoV-2) is likely and diagnostic tests for other causes of illness are negative. Re-testing should be considered in cases of suspected false negatives.The limit of detection for this assay is 800 copies/mL.This SARS CoV-2 test is a real-time RT-PCR test intended for the qualitative detection of nucleic acid from SARS-CoV-2 in a nasopharyngeal swab specimen collected from individuals suspected of COVID-19 by their healthcare provider.This test has not been Food and Drug Administration (FDA) cleared or approved. This is a modified version of an approved Emergency Use Authorization (EUA) and is in the process of review by the FDA. Once authorized by the FDA, the issued EUA will be effective until the declaration that circumstances exist justifying the authorization of the emergency use ofin vitro diagnostic tests for detection and/or diagnosis of COVID-19 is terminated under Section 564(b)(2) of the Act or the EUA is revoked under Section 564(g) of the Act.Fact Sheet for Healthcare Prov iders:https://www.[employer].com/sites/default/files/product/documents/Fact_Sheet_HC _Drcprvodm_Pmsk_EISQ-IwV-2.pdfFact Sheet for Healthcare Patients:https://www.[employer] [facility]/sites/default/files/product/docume nts/Vyaw_Hctkj_Oeatwrmw_Rqmz_EPSJ-HhO-3.pdfPerforming Laboratory:[facility] [place], [place] [address]FQPZ-SWUHBEX METER 2020-08-11 07:44:00 Test Item Value Reference Range Interpretation Comments POC-GLUCOSE METER 227 mg/dL 70-110 H : [facility] (test code = [facility], 1538) 11797: Planning Analyst/Techni john ID = [id number] for Liam Shahdre BASIC METABOLIC [id number] 06:40:00 Test Item Value Reference Range Interpretation Comments SODIUM (BEAKER) 133 meq/L 136-145 L (test code = 381) POTASSIUM (BEAKER) 4.9 meq/L 3.5-5.1 (test code = 379) CHLORIDE (BEAKER) 103 meq/L 98-107 (test code = 382) CO2 (BEAKER) (test 19 meq/L 22-29 L code = 355) BLOOD UREA NITROGEN 19 mg/dL 7-21 (BEAKER) (test code = 354) CREATININE (BEAKER) 1.70 mg/dL 0.57-1.25 H (test code = 358) GLUCOSE RANDOM 257 mg/dL 70-105 H (BEAKER) (test code = 652) CALCIUM (BEAKER) 7.9 mg/dL 8.4-10.2 L (test code = 697) EGFR (BEAKER) (test 32 mL/min/1.73 ESTIMA DAIANA GFR IS code = 1092) sq m NOT ACCURATE CREATININE CLEARANCE IN PREDICTING GLOMERULAR FILTRATION RATE . ESTIMATED GFR I S NOT APPLICABLE FOR DIALYSIS PATIEN TS. Planning Analyst ID - DBCBC W/PLT COUNT & AUTO [id number] 06:23:00 Test Item Value Reference Range Interpretation Comments WHITE BLOOD CELL COUNT (BEAKER) 12.5 K/ L 3.5-10.5 H (test code = 775) RED BLOOD CELL COUNT (BEAKER) 4.40 M/ L 3.93-5.22 (test code = 761) HEMOGLOBIN (BEAKER) (test code = 12.1 GM/DL 11.2-15.7 410) HEMATOCRIT (BEAKER) (test code = 38.2 % 34.1-44.9 411) MEAN CORPUSCULAR VOLUME (BEAKER) 86.8 fL 79.4-94.8 (test code = 753) MEAN CORPUSCULAR HEMOGLOBIN 27.5 pg 25.6-32.2 (BEAKER) (test code = 751) MEAN CORPUSCULAR HEMOGLOBIN CONC 31.7 GM/DL 32.2-35.5 L (BEAKER) (test code = 752) RED CELL DISTRIBUTION WIDTH 13.6 % 11.7-14.4 (BEAKER) (test code = 412) PLATELET COUNT (BEAKER) (test 198 K/CU MM 150-450 code = 756) MEAN PLATELET VOLUME (BEAKER) 10.4 fL 9.4-12.3 (test code = 754) NUCLEATED RED BLOOD CELLS 0 /100 WBC 0-0 (BEAKER) (test code = 413) NEUTROPHILS RELATIVE PERCENT 67 % (BEAKER) (test code = 429) LYMPHOCYTES RELATIVE PERCENT 23 % (BEAKER) (test code = 430) MONOCYTES RELATIVE PERCENT 10 % (BEAKER) (test code = 431) EOSINOPHILS RELATIVE PERCENT 0 % (BEAKER) (test code = 432) BASOPHILS RELATIVE PERCENT 0 % (BEAKER) (test code = 437) NEUTROPHILS ABSOLUTE COUNT 8.32 K/ L 1.56-6.13 H (BEAKER) (test code = 670) LYMPHOCYTES ABSOLUTE COUNT 2.88 K/ L 1.18-3.74 (BEAKER) (test code = 414) MONOCYTES ABSOLUTE COUNT (BEAKER) 1.19 K/ L 0.24-0.36 H (test code = 415) EOSINOPHILS ABSOLUTE COUNT 0.00 K/ L 0.04-0.36 L (BEAKER) (test code = 416) BASOPHILS ABSOLUTE COUNT (BEAKER) 0.05 K/ L 0.01-0.08 (test code = 417) IMMATURE GRANULOCYTES-RELATIVE 0 % 0-1 PERCENT (BEAKER) (test code = 2801) CT, [id number] 20:34:00REFERRING : MALENA CHANDUnlisted Reason for Exam - Click Yes and Enter Reason Below->NoPlease specify:->Renal Stone ProtocolWill this procedure require oral contrast?->No [facility] : 1965 Sex: FFINAL REPORT EXAM: CT of the abdomen and pelvis, without contrast CLINICAL HISTORY: Flank pain, kidney stone suspected TECHNIQUE: CT of the abdomen and pelvis was performed without the intravenous administration of contrast. This exam was performed according to our departmental doseoptimization program which includes automated exposure control, adjustment of the mA and/or kV according to patient's size and/or use of iterative reconstructive technique. COMPARISON: CT abdomen and pelvis 09/28/2017 FINDINGS: Please note that lack of intravenous contrast limits evaluation of the solid organs, soft tissues and vascular structures. LOWER CHEST: Mild bilateral lower lobe subsegmental at electasis.HEPATOBILIARY: Status post cholecystectomy. Hepatomegaly.PANCREAS: Unremarkable unenhancedappearance.SPLEEN: Unremarkable unenhanced appearance.ADRENALS: Unremarkable unenhanced appearance.KIDNEYS/URETERS: Interval removal of left percutaneous nephrostomy and left nephroureteral stents. Lobulated bilateral kidneys (right greater than left). Severely atrophic right kidney containing multiple cysts; largest cyst in the right kidney measures up to 4.9 x 3.4 cm in the upper pole, not significantly changed. 2.8 x 2.4 cm left renal parapelvic cyst. 1.4 x 0.6 cm nonobstructing stone in the right renal pelvis, unchanged. Subcentimeter nonobstructing bilateral renal stones measuring up to 7 mm in the left lower pole. Mild left perinephric stranding. Mild left hydroureteronephrosis without an obstructing stone. No right hydronephrosis. URINARY BLADDER: Underdistended but otherwise unremarkable.REPRODUCTIVE ORGANS: Within normal limits. BOWEL/MESENTERY: No bowel obstruction or abnormal wall thickening. Normal appendix.PERITONEUM/RETROPERITONEUM: No free air, free fluid or fluid collection. VESSELS: Atherosclerotic calcifications of the aorta and branches. No abdominal aortic aneurysm. LYMPH NODES: No abdominal or pelvic lymphadenopathy.SOFT TISSUES: Midline lower abdominal scar.BONES: Withinnormal limits. IMPRESSION:Interval removal of left percutaneous nephrostomy and left nephroureteral stents. Mild left hydroureteronephrosis, without an obstructing stone. Finding may be due to a recently passed stone or infection. Correlate clinically. Severe right renal atrophy. Nonobstructing bilateral renal stones. Bilateral renal cysts. Hepatomegaly. Signed: Dustin Johnson MDReport Verified Date/Time: 08/10/2020 20:34:13 POCT-GLUCOSE [id number] 19:45:00 Test Item Value Reference Range Interpretation Comments POC-GLUCOSE METER 223 mg/dL 70-110 H [facility] (BEAKER[facility] (test code = GUCCI Main [facility], 1538) [address]: Planning Analyst/Techni john ID = [id number] for Gladis Kendall PROTHROMBIN TIME/[id number] 18:59:00 Test Item Value Reference Range Interpretation Comments PROTIME (BEAKER) < seconds 9.8-12.0 L (test code = 759) INR (BEAKER) (test 0.90 See_Comment [Automat ed message] The code = 370) system which ge nerated this result tra nsmitted reference range : <=5.90. The reference r christian was not used to int erpret this result as normal/abnormal . RECOMMENDED COUMADIN/WARFARIN INR THERAPY RANGESSTANDARD DOSE: 2.0 - 3.0 Includes: PROPHYLAXIS for venous thrombosis, systemic embolization; TREATMENT for venous thrombosis and/or pulmonary embolus.HIGH RISK: Target INR is 2.5-3.5 for patients with mechanical heart valves.LACTIC ACID, [id number] 18:21:00 Test Item Value Reference Range Interpretation Comments LACTATE BLOOD VENOUS 1.35 mmol/L 0.50-2.20 Specime n slightly (2) (BEAKER) (test hemolyzed code = 4126) Planning Analyst ID - YOLA MLACTIC ACID, [id number] 18:21:00 Test Item Value Reference Range Interpretation Comments LACTATE BLOOD VENOUS 1.35 mmol/L 0.50-2.20 Specime n slightly (2) (BEAKER) (test hemolyzed code = 7548) Planning Analyst ID - YOLA MCOMPREHENSIVE METABOLIC [id number] 17:22:00 Test Item Value Reference Range Interpretation Comments TOTAL PROTEIN 7.5 gm/dL 6.0-8.3 (BEAKER) (test code = 770) ALBUMIN (BEAKER) 3.8 g/dL 3.5-5.0 (test code = 1145) ALKALINE PHOSPHATASE 128 U/L 40-150 (BEAKER) (test code = 346) BILIRUBIN TOTAL 0.4 mg/dL 0.2-1.2 (BEAKER) (test code = 377) SODIUM (BEAKER) (test 131 meq/L 136-145 L code = 381) POTASSIUM (BEAKER) 5.1 meq/L 3.5-5.1 (test code = 379) CHLORIDE (BEAKER) 102 meq/L 98-107 (test code = 382) CO2 (BEAKER) (test 19 meq/L 22-29 L code = 355) BLOOD UREA NITROGEN 20 mg/dL 7-21 (BEAKER) (test code = 354) CREATININE (BEAKER) 1.77 mg/dL 0.57-1.25 H (test code = 358) GLUCOSE RANDOM 344 mg/dL 70-105 H (BEAKER) (test code = 652) CALCIUM (BEAKER) 9.3 mg/dL 8.4-10.2 (test code = 697) AST (SGOT) (BEAKER) 18 U/L 5-34 (test code = 353) ALT (SGPT) (BEAKER) 23 U/L 6-55 (test code = 347) EGFR (BEAKER) (test 30 mL/min/1.73 ESTIMA DAIANA GFR IS code = 1092) sq m NOT ACCURATE CREATININE CLEARANCE IN PREDICTING GLOMERULAR FILTRATION RATE . ESTIMATED GFR I S NOT APPLICABLE FOR DIALYSIS PATIEN TS. Planning Analyst ID - YOLA MURINALYSIS W/ REFLEX URINE [id number] 17:18:00 Test Item Value Reference Range Interpretation Comments COLOR (BEAKER) (test code = 470) Yellow CLARITY (BEAKER) (test code = 469) Hazy SPECIFIC GRAVITY UA (BEAKER) (test 1.016 1.001-1.035 code = 468) PH UA (BEAKER) (test code = 467) 6.5 5.0-8.0 PROTEIN UA (BEAKER) (test code = 20 mg/dL Negative A 464) GLUCOSE UA (BEAKER) (test code = 70 mg/dL Negative A 365) KETONES UA (BEAKER) (test code = Negative Negative 371) BILIRUBIN UA (BEAKER) (test code = Negative Negative 462) BLOOD UA (BEAKER) (test code = 461) Negative Negative NITRITE UA (BEAKER) (test code = Negative Negative 465) LEUKOCYTE ESTERASE UA (BEAKER) Large Negative A (test code = 466) UROBILINOGEN UA (BEAKER) (test code 0.2 mg/dL 0.2-1.0 = 463) RBC UA (BEAKER) (test code = 519) 0 /HPF WBC UA (BEAKER) (test code = 520) 248 /HPF BACTERIA (BEAKER) (test code = 517) None Seen SQUAMOUS EPITHELIAL (BEAKER) (test 1 /HPF code = 516) CRYSTALS, URINE (BEAKER) (test code None Seen = 1521) SOURCE(BEAKER) (test code = 2795) Planning Analyst ID - [auto]Planning Analyst ID - [id number] 17:14:00 Test Item Value Reference Range Interpretation Comments PARTIAL THROMBOPLASTIN TIME 28.0 seconds 22.5-36.0 (BEAKER) (test code = 760) CBC W/PLT COUNT & AUTO [id number] 17:08:00 Test Item Value Reference Range Interpretation Comments WHITE BLOOD CELL COUNT (BEAKER) 13.3 K/ L 3.5-10.5 H (test code = 775) RED BLOOD CELL COUNT (BEAKER) 5.03 M/ L 3.93-5.22 (test code = 761) HEMOGLOBIN (BEAKER) (test code = 13.9 GM/DL 11.2-15.7 410) HEMATOCRIT (BEAKER) (test code = 43.1 % 34.1-44.9 411) MEAN CORPUSCULAR VOLUME (BEAKER) 85.7 fL 79.4-94.8 (test code = 753) MEAN CORPUSCULAR HEMOGLOBIN 27.6 pg 25.6-32.2 (BEAKER) (test code = 751) MEAN CORPUSCULAR HEMOGLOBIN CONC 32.3 GM/DL 32.2-35.5 (BEAKER) (test code = 752) RED CELL DISTRIBUTION WIDTH 13.3 % 11.7-14.4 (BEAKER) (test code = 412) PLATELET COUNT (BEAKER) (test 223 K/CU MM 150-450 code = 756) MEAN PLATELET VOLUME (BEAKER) 10.4 fL 9.4-12.3 (test code = 754) NUCLEATED RED BLOOD CELLS 0 /100 WBC 0-0 (BEAKER) (test code = 413) NEUTROPHILS RELATIVE PERCENT 78 % (BEAKER) (test code = 429) LYMPHOCYTES RELATIVE PERCENT 15 % (BEAKER) (test code = 430) MONOCYTES RELATIVE PERCENT 7 % (BEAKER) (test code = 431) EOSINOPHILS RELATIVE PERCENT 0 % (BEAKER) (test code = 432) BASOPHILS RELATIVE PERCENT 0 % (BEAKER) (test code = 437) NEUTROPHILS ABSOLUTE COUNT 10.33 K/ L 1.56-6.13 H (BEAKER) (test code = 670) LYMPHOCYTES ABSOLUTE COUNT 1.94 K/ L 1.18-3.74 (BEAKER) (test code = 414) MONOCYTES ABSOLUTE COUNT (BEAKER) 0.89 K/ L 0.24-0.36 H (test code = 415) EOSINOPHILS ABSOLUTE COUNT 0.00 K/ L 0.04-0.36 L (BEAKER) (test code = 416) BASOPHILS ABSOLUTE COUNT (BEAKER) 0.05 K/ L 0.01-0.08 (test code = 417) IMMATURE GRANULOCYTES-RELATIVE 1 % 0-1 PERCENT (BEAKER) (test code = 2801) - XR CHEST 1 [id number] 11:45:00 Name: BIBAINA CASTANO [facility] : 1965 Age/S: 53 / F [id number] [address] Unit #: [id number] Loc: [place] [address] Phys: Paul Brewster MD Acct: [id number] Dis Date: Status: REG ER PHONE #: [phone] Exam Date: 06/06/2019 1127 FAX #: Reason: cough EXAMS: CPT: [id number] XR CHEST 1 V 36542 Fluoro Time: DAP (Gy m2): Air Kerma (mGy): Dictation location: [facility]. CHEST, FRONTAL VIEW HISTORY: cough FINDINGS: Since 11/14/17, mild perihilar bronchial wall thickening is noted. No focal consolidation. No pleural effusion or pneumothorax. The heart size is normal. Bones are intact. IMPRESSION: Nonspecific bronchitis. at 1145 Reported and signed by: Trenton Amaral M.D. CC: Paul Brewster MD PAGE 1Signed Report Name: BIBIANA CASTANO [facility] : 1965 Age/S: 53 / F [id number] [address] Unit #: [id number] Loc: [place] [address] Phys: Paul Brewster MD Acct: [id number] Dis Date: Status: REG ER PHONE #: [phone] Exam Date: 06/06/2019 1127 FAX #: Reason: cough EXAMS: CPT: [id number] XR CHEST 1 V 52907 Fluoro Time: DAP (Gy m2): Air Kerma (mGy): (Continued) Technologist: Amy Nelson, RT(R) Trnscb Date/Time: 06/06/2019 (1145) [email or web address] Orig Print D/T: S: 06/06/2019 (1148) PAGE 2 Signed Report STONE [id number] 10:42:00 Test Item Value Reference Range Interpretation Comments STONE SOURCE (test KIDNEY code = 5681827) NIDUS (test code = Not observed 0990992) COMPONENT 1 See Below Calcium Oxalate (QUEST) (test code Dihydrate (Weddellite) = 8300837) 20%Calcium Oxal ate Monohydrate (Whewellite) 80 % COMPONENT 2 DNR (QUEST) (test code = 2498) STONE WEIGHT 0.0240 g The image will follow, (QUEST) (test code unless te st is = 2654) cancelled or no picture is available to report. This test was d tyeoped and its analyti odilon performance characteristics have been determined by [facility]. It han s not been cleared or approved by the USFood and Drug Administration. This assay has been validated pursu ant to the [place] regula tions and is used for clinical purpos es. Performing Lab *[email or web address], [address] [place] [id number] Yenni Pacheco MD, PhDURINE [id number] 07:39:00 Test Item Value Reference Range Interpretation Comments CULTURE (BEAKER) ENTEROCOCCUS A 20-29,000 c ol/mL (test code = 1095) SPECIES Enterococ cus species Ampicillin (test S code = 26) Linezolid (test code R = 40) Nitrofurantoin (test S code = 23) Tetracycline (test R code = 2) Vancomycin (test S code = 13) POCT-GLUCOSE [id number] 07:38:00 Test Item Value Reference Range Interpretation Comments POC-GLUCOSE METER 267 mg/dL 70-[address] [facility] 6720 (BEAKER) (test code = [facility] 1538) [address] BASIC METABOLIC [id number] 05:42:00 Test Item Value Reference Range Interpretation Comments SODIUM (BEAKER) 134 meq/L 136-145 L (test code = 381) POTASSIUM (BEAKER) 3.8 meq/L 3.5-5.1 (test code = 379) CHLORIDE (BEAKER) 109 meq/L 98-107 H (test code = 382) CO2 (BEAKER) (test 18 meq/L 22-29 L code = 355) BLOOD UREA NITROGEN 16 mg/dL 7-21 (BEAKER) (test code = 354) CREATININE (BEAKER) 1.73 mg/dL 0.57-1.25 H (test code = 358) GLUCOSE RANDOM 219 mg/dL 70-105 H (BEAKER) (test code = 652) CALCIUM (BEAKER) 9.1 mg/dL 8.4-10.2 (test code = 697) EGFR (BEAKER) (test 31 mL/min/1.73 ESTIMA DAIANA GFR IS code = 1092) sq m NOT ACCURATE CREATININE CLEARANCE IN PREDICTING GLOMERULAR FILTRATION RATE . ESTIMATED GFR I S NOT APPLICABLE FOR DIALYSIS PATIEN TS. CBC W/PLT COUNT & AUTO [id number] 05:24:00 Test Item Value Reference Range Interpretation Comments WHITE BLOOD CELL COUNT (BEAKER) 14.0 K/ L 3.5-10.5 H (test code = 775) RED BLOOD CELL COUNT (BEAKER) 3.68 M/ L 3.93-5.22 L (test code = 761) HEMOGLOBIN (BEAKER) (test code = 7.8 GM/DL 11.2-15.7 L 410) HEMATOCRIT (BEAKER) (test code = 27.0 % 34.1-44.9 L 411) MEAN CORPUSCULAR VOLUME (BEAKER) 73.4 fL 79.4-94.8 L (test code = 753) MEAN CORPUSCULAR HEMOGLOBIN 21.2 pg 25.6-32.2 L (BEAKER) (test code = 751) MEAN CORPUSCULAR HEMOGLOBIN CONC 28.9 GM/DL 32.2-35.5 L (BEAKER) (test code = 752) RED CELL DISTRIBUTION WIDTH 16.8 % 11.7-14.4 H (BEAKER) (test code = 412) PLATELET COUNT (BEAKER) (test 257 K/CU MM 150-450 code = 756) MEAN PLATELET VOLUME (BEAKER) 10.3 fL 9.4-12.3 (test code = 754) NUCLEATED RED BLOOD CELLS 0 /100 WBC 0-0 (BEAKER) (test code = 413) NEUTROPHILS RELATIVE PERCENT 78 % (BEAKER) (test code = 429) LYMPHOCYTES RELATIVE PERCENT 13 % (BEAKER) (test code = 430) MONOCYTES RELATIVE PERCENT 8 % (BEAKER) (test code = 431) EOSINOPHILS RELATIVE PERCENT 0 % (BEAKER) (test code = 432) BASOPHILS RELATIVE PERCENT 0 % (BEAKER) (test code = 437) NEUTROPHILS ABSOLUTE COUNT 10.92 K/ L 1.56-6.13 H (BEAKER) (test code = 670) LYMPHOCYTES ABSOLUTE COUNT 1.79 K/ L 1.18-3.74 (BEAKER) (test code = 414) MONOCYTES ABSOLUTE COUNT (BEAKER) 1.15 K/ L 0.24-0.36 H (test code = 415) EOSINOPHILS ABSOLUTE COUNT 0.00 K/ L 0.04-0.36 L (BEAKER) (test code = 416) BASOPHILS ABSOLUTE COUNT (BEAKER) 0.06 K/ L 0.01-0.08 (test code = 417) IMMATURE GRANULOCYTES-RELATIVE 1 % 0-1 PERCENT (BEAKER) (test code = 2801) POCT-GLUCOSE [id number] 22:15:00 Test Item Value Reference Range Interpretation Comments POC-GLUCOSE METER 282 mg/dL 70-[address] [facility] 67 (BEAKER) (test code = [place] 1538) [address] POCT-GLUCOSE [id number] 17:38:00 Test Item Value Reference Range Interpretation Comments POC-GLUCOSE METER 256 mg/dL 70-110 H TESTED AT [place] [address] (BEAKER) (test code = GUCCI Main [facility] 1538) [address] CBC (HEMOGRAM ONLY)2017-09-30 14:45:00 Test Item Value Reference Range Interpretation Comments WHITE BLOOD CELL COUNT (BEAKER) 16.5 K/ L 3.5-10.5 H (test code = 775) RED BLOOD CELL COUNT (BEAKER) 3.87 M/ L 3.93-5.22 L (test code = 761) HEMOGLOBIN (BEAKER) (test code = 8.4 GM/DL 11.2-15.7 L 410) HEMATOCRIT (BEAKER) (test code = 28.2 % 34.1-44.9 L 411) MEAN CORPUSCULAR VOLUME (BEAKER) 72.9 fL 79.4-94.8 L (test code = 753) MEAN CORPUSCULAR HEMOGLOBIN 21.7 pg 25.6-32.2 L (BEAKER) (test code = 751) MEAN CORPUSCULAR HEMOGLOBIN CONC 29.8 GM/DL 32.2-35.5 L (BEAKER) (test code = 752) RED CELL DISTRIBUTION WIDTH 16.7 % 11.7-14.4 H (BEAKER) (test code = 412) PLATELET COUNT (BEAKER) (test 248 K/CU MM 150-450 code = 756) MEAN PLATELET VOLUME (BEAKER) 10.0 fL 9.4-12.3 (test code = 754) NUCLEATED RED BLOOD CELLS 0 /100 WBC 0-0 (BEAKER) (test code = 413) POCT-GLUCOSE [id number] 14:00:00 Test Item Value Reference Range Interpretation Comments POC-GLUCOSE METER 286 mg/dL 70-[address] [facility] 6720 (BEAKER) (test code = GUCCI Main [place] 1538) [address] POCT-GLUCOSE [id number] 11:41:00 Test Item Value Reference Range Interpretation Comments POC-GLUCOSE METER 362 mg/dL 70-[address] [facility] 6720 (BEAKER) (test code = GUCC[place] Main [place] 1538) [address] POCT-GLUCOSE [id number] 09:00:00 Test Item Value Reference Range Interpretation Comments POC-GLUCOSE METER 272 mg/dL 70-[address] [facility] 6720 (BEAKER) (test code = GUCCI Main [place] 1538) [address] BASIC METABOLIC [id number] 06:43:00 Test Item Value Reference Range Interpretation Comments SODIUM (BEAKER) 129 meq/L 136-145 L (test code = 381) POTASSIUM (BEAKER) 4.4 meq/L 3.5-5.1 (test code = 379) CHLORIDE (BEAKER) 104 meq/L 98-107 (test code = 382) CO2 (BEAKER) (test 18 meq/L 22-29 L code = 355) BLOOD UREA NITROGEN 24 mg/dL 7-21 H (BEAKER) (test code = 354) CREATININE (BEAKER) 2.26 mg/dL 0.57-1.25 H (test code = 358) GLUCOSE RANDOM 233 mg/dL 70-105 H (BEAKER) (test code = 652) CALCIUM (BEAKER) 8.5 mg/dL 8.4-10.2 (test code = 697) EGFR (BEAKER) (test 23 mL/min/1.73 ESTIMA DAIANA GFR IS code = 1092) sq m NOT ACCURATE CREATININE CLEARANCE IN PREDICTING GLOMERULAR FILTRATION RATE . ESTIMATED GFR I S NOT APPLICABLE FOR DIALYSIS PATIEN TS. HEMOGLOBIN AND [id number] 06:16:00 Test Item Value Reference Range Interpretation Comments HEMOGLOBIN (BEAKER) (test code = 7.8 GM/DL 11.2-15.7 L 410) HEMATOCRIT (BEAKER) (test code = 27.5 % 34.1-44.9 L 411) POCT-GLUCOSE [id number] 22:39:00 Test Item Value Reference Range Interpretation Comments POC-GLUCOSE METER 294 mg/dL 70-110 H TESTED AT [place] [address] ([facility]) (test code = GUCCI Main [facility] 1538) [address] POCT-GLUCOSE [id number] 17:42:00 Test Item Value Reference Range Interpretation Comments POC-GLUCOSE METER 261 mg/dL 70-110 H TESTED AT [place] [address] ([facility]) (test code = GUCCI Main [facility] 1538) [address] TROPONIN [id number] 15:03:00 Test Item Value Reference Range Interpretation Comments TROPONIN I ([facility]) (test code = 397) < ng/mL 0.00-0.03 Troponin I (TnI) levels must be interpreted in the context of the presenting symptoms and the clinical findings. Elevated TnI levels indicate myocardial damage, but are not specific for ischemic heart disease. Elevated TnI levels are seen in patients with other cardiac conditions (including myocarditis and congestive heart failure), and slight TnI elevations occur in patients with other conditions, including sepsis, renal failure, acidosis, acute neurological disease, and persistent tachyarrhythmia.POCT-GLUCOSE [id number] 12:14:00 Test Item Value Reference Range Interpretation Comments POC-GLUCOSE METER 239 mg/dL 70-110 H TESTED AT [place] [address] ([facility]) (test code = GUCCI Main [facility] 1538) [address] RAD, CHEST, 1 VIEW, NON [id number] 11:05:00Reason for exam:->Post-opShould this be performed at the bedside?->YesFINAL REPORT Chest one view INDICATION: Postop COMPARISON: 09/28/2017 IMPRESSION: ET and NG tube have been removed. A tube or catheter overlies the left abdomen. Right upper quadrant surgical clips are present. There are low lung volumes with decreased pulmonary vascular congestionand bibasilar airspace opacities that may reflect atelectasis. Pneumonitis or aspiration should be ex cluded clinically. A small left pleural effusion is present. The cardiomediastinal contours are stable, accounting for technique. No pneumothorax is seen. Signed: Dani Power MDRepliliane VerifiedDate/Time: 09/29/2017 11:05:14 Reading Location: [facility] Radiology Reading Room L [id number] 11:00:00 Test Item Value Reference Range Interpretation Comments TROPONIN I (BEAKER) (test code = 397) < ng/mL 0.00-0.03 Troponin I (TnI) levels must be interpreted in the context of the presenting symptoms and the clinical findings. Elevated TnI levels indicate myocardial damage, but are not specific for ischemic heart disease. Elevated TnI levels are seen in patients with other cardiac conditions (including myocarditis and congestive heart failure), and slight TnI elevations occur in patients with other conditions, including sepsis, renal failure, acidosis, acute neurological disease, and persistent tachyarrhythmia.POCT-GLUCOSE [id number] 08:25:00 Test Item Value Reference Range Interpretation Comments POC-GLUCOSE METER 252 mg/dL 70-[address] [facility] 6720 (BEAKER) (test code = GUCCI Main [facility] 1538) [address] BASIC METABOLIC [id number] 05:30:00 Test Item Value Reference Range Interpretation Comments SODIUM (BEAKER) 131 meq/L 136-145 L (test code = 381) POTASSIUM (BEAKER) 4.9 meq/L 3.5-5.1 (test code = 379) CHLORIDE (BEAKER) 107 meq/L 98-107 (test code = 382) CO2 (BEAKER) (test 16 meq/L 22-29 L code = 355) BLOOD UREA NITROGEN 20 mg/dL 7-21 (BEAKER) (test code = 354) CREATININE (BEAKER) 1.67 mg/dL 0.57-1.25 H (test code = 358) GLUCOSE RANDOM 266 mg/dL 70-105 H (BEAKER) (test code = 652) CALCIUM (BEAKER) 8.4 mg/dL 8.4-10.2 (test code = 697) EGFR (BEAKER) (test 32 mL/min/1.73 ESTIMA DAIANA GFR IS code = 1092) sq m NOT ACCURATE CREATININE CLEARANCE IN PREDICTING GLOMERULAR FILTRATION RATE . ESTIMATED GFR I S NOT APPLICABLE FOR DIALYSIS PATIEN TS. HEMOGLOBIN AND [id number] 05:02:00 Test Item Value Reference Range Interpretation Comments HEMOGLOBIN (BEAKER) (test code = 8.6 GM/DL 11.2-15.7 L 410) HEMATOCRIT (BEAKER) (test code = 29.6 % 34.1-44.9 L 411) CT, [id number] 01:39:00FINAL REPORT CT, ABDOMEN \\T\\ PELVIS, WITHOUT IV CONTRAST INDICATION: Kidney stone, known, follow ups/p L PCNL COMPARISON: None available TECHNIQUE:Noncontrast abdomen and pelvis CT. Coronal and sagittal reformatted images obtained. DOSE REDUCTION: Dose modulation, iterative reconstruction, and/or weight-based adjustment of the mA/kV was utilized to reduce the radiation dose to aslow as reasonably achievable. FINDINGS: Lower thorax: Partial collapse of the left greater than right lower lobes, superimposed infection cannot be excluded. Small left subpulmonic pleural effusion. Small pericardial effusion. Coronary artery stents are noted. The heart is normal in size. The esophagus is somewhat patulous and fluid-filled. No effusion. Relative hypodensity of the blood flow in relation to the myocardium is suggestive of anemia. Liver: Hepatic steatosis. Lack of intravenous contrast material limits evaluation for focal lesion.Gallbladder and biliary tree: Postsurgical changes of cholecystectomy. No intra or extrahepatic biliary ductal dilatation.Pancreas: No acute findings.Spleen:No acute findingsAdrenal Glands: No acute findings.Kidneys and ureters: Multicystic right kidney which is otherwise atrophic. Multiple small right renal stones the largest of which is in the collectingsystem measuring 1.1 cm. There is mild right perinephric stranding. No hydroureter or definite hydronephrosis. Post procedural changes of a left percutaneous nephrostomy tube with hyperdense material and gas in the collecting system, which may represent blood products versus retained contrast material. Double-J ureteric stent is seen within the left ureter, appropriately positioned. Multiple punctateleft renal stones are identified. No suspicious left contour deforming lesion. Bladder and reproductive organs: Bladder is decompressed with Arnold catheter present. Gas is layering anteriorly within the bladder is likely related to instrumentation.. Multiple calcifications within the uterus which is otherwise unremarkable. No suspicious adnexal masses.Stomach and Duodenum: Stomach is somewhat distended. Duodenum is normal.Small and large intestine: Diverticulosis of the sigmoid colon without evidence of diverticulitis. The small large bowel are normal in caliber.Appendix: Normal. Major vascular structures: Vascular calcifications of the normal caliber aorta. Retroaortic left renal vein.Peritoneum and retroperitoneum: Left perinephric soft tissue stranding. Trace free fluid in the pelvis. No organized fluid collections. Skeleton: No acute bony abnormality. Mild multilevel degenerative changes within the thoracolumbar spine.Additional findings: Subcutaneous emphysema along the left flank consistent with recent instrumentation. IMPRESSION: Post procedural changes of a percutaneous nephrostomy tube with tip injecting into the upper pole collecting system by approximately 6 mm. Small amount of gasand hemorrhage versus retained contrast material in the left collecting system is expected. Double-Jureteric stent is appropriately positioned in the left interpole collecting system. Right nephrolithiasis with a 1.1 cm stone in the right extrarenal pelvis. Partial collapse of the left greater than right lower lobes, superimposed infection cannot be excluded. Hepatic steatosis. Signed: Mahnaz Ireland MDReport Verified Date/Time: 09/29/2017 01:39:48 Reading Location: [address] Reading Room C METABOLIC [id number] 16:44:00 Test Item Value Reference Range Interpretation Comments SODIUM (BEAKER) 136 meq/L 136-145 (test code = 381) POTASSIUM (BEAKER) 4.2 meq/L 3.5-5.1 (test code = 379) CHLORIDE (BEAKER) 107 meq/L 98-107 (test code = 382) CO2 (BEAKER) (test 17 meq/L 22-29 L code = 355) BLOOD UREA NITROGEN 19 mg/dL 7-21 (BEAKER) (test code = 354) CREATININE (BEAKER) 1.76 mg/dL 0.57-1.25 H (test code = 358) GLUCOSE RANDOM 291 mg/dL 70-105 H (BEAKER) (test code = 652) CALCIUM (BEAKER) 9.0 mg/dL 8.4-10.2 (test code = 697) EGFR (BEAKER) (test 31 mL/min/1.73 ESTIMA DAIANA GFR IS code = 1092) sq m NOT ACCURATE CREATININE CLEARANCE IN PREDICTING GLOMERULAR FILTRATION RATE . ESTIMATED GFR I S NOT APPLICABLE FOR DIALYSIS PATIEN TS. HEMOGLOBIN AND [id number] 16:28:00 Test Item Value Reference Range Interpretation Comments HEMOGLOBIN (BEAKER) (test code = 10.4 GM/DL 11.2-15.7 L 410) HEMATOCRIT ([facility]) (test code = 35.2 % 34.1-44.9 411) POCT-GLUCOSE [id number] 16:14:00 Test Item Value Reference Range Interpretation Comments POC-GLUCOSE METER 295 mg/dL 70-[address] [facility] (SCAR) (test code = [place] 1538) [address] RAD, CHEST, 1 VIEW, NON [id number] 15:50:00Reason for exam:->Left retrograde pyelogramShould this be performed at the bedside?->YesFINAL REPORT Chest one view INDICATION: Renal stone post left retrograde pyelogram. COMPARISON: 09/14/2017 IMPRESSION: ET tube terminates 3.9 cm above the kenney. NG tube extends tothe stomach with tip off image. There are low lung volumes with vascular congestion and mixed interstitial and central and basilar airspace opacities could reflect pulmonary edema and atelectasis. Pneumonitis or aspiration cannot be excluded, however. No pneumothorax or significant pleural effusion isseen. The cardiomediastinal silhouette size is magnified by technique and hypoinflation. Right abdominal surgical clips are present. No acute osseous abnormality is evident. Signed: Dani Power Verified Date/Time: 09/28/2017 15:50:06 Reading Location: [address] Consult Reading Room [facility], INSPECTION AND TESTING SUPERVISOR IN OR/30 MINUTE [id number] 15:27:00 Reason for exam:->Left NephrolithiasisFINAL REPORT Fluoroscopic exam Clinical History: Left Nephrolithiasis Impression: Fluoroscopic assistance was provided for a procedure. The radiologist was not present during the procedure. No images were obtained during the procedure. Please refer to the procedure report for moredetails. Number of images obtained: 0 Fluoroscopic time: 275 seconds Signed: Norma Gipson Verified Date/Time: 09/28/2017 15:27:33 Reading Location: [facility] POCT-GLUCOSE METER 2017-09-28 10:39:00 Test Item Value Reference Range Interpretation Comments POC-GLUCOSE METER 238 mg/dL 70-[address] [facility] (BEAKER) (test code = [place] 1538) [address] URINE [id number] 13:51:00 Test Item Value Reference Range Interpretation Comments CULTURE (BEAKER) (test 10-19,000 col/mL skin code = 1095) diego URINALYSIS W/ [id number] 15:58:00 Test Item Value Reference Range Interpretation Comments COLOR (BEAKER) (test code = 470) Light Yellow CLARITY (BEAKER) (test code = Clear 469) SPECIFIC GRAVITY UA (BEAKER) 1.011 1.001-1.035 (test code = 468) PH UA (BEAKER) (test code = 467) 6.0 5.0-8.0 PROTEIN UA (BEAKER) (test code = 10 mg/dL Negative A 464) GLUCOSE UA (BEAKER) (test code = 100 mg/dL Negative A 365) KETONES UA (BEAKER) (test code = Negative Negative 371) BILIRUBIN UA (BEAKER) (test code Negative Negative = 462) BLOOD UA (BEAKER) (test code = Negative Negative 461) NITRITE UA (BEAKER) (test code = Negative Negative 465) LEUKOCYTE ESTERASE UA (BEAKER) Large Negative A (test code = 466) UROBILINOGEN UA (BEAKER) (test 0.2 mg/dL 0.2-1.0 code = 463) RBC UA (BEAKER) (test code = 3 /HPF 519) WBC UA (BEAKER) (test code = 86 /HPF 520) MUCUS (BEAKER) (test code = Rare 1574) SQUAMOUS EPITHELIAL (BEAKER) 1 /HPF (test code = 516) SOURCE(BEAKER) (test code = 4194) BASIC METABOLIC [id number] 15:14:00 Test Item Value Reference Range Interpretation Comments SODIUM (BEAKER) 137 meq/L 136-145 (test code = 381) POTASSIUM (BEAKER) 4.1 meq/L 3.5-5.1 (test code = 379) CHLORIDE (BEAKER) 106 meq/L 98-107 (test code = 382) CO2 (BEAKER) (test 22 meq/L 22-29 code = 355) BLOOD UREA NITROGEN 19 mg/dL 7-21 (BEAKER) (test code = 354) CREATININE (BEAKER) 1.64 mg/dL 0.57-1.25 H (test code = 358) GLUCOSE RANDOM 253 mg/dL 70-105 H (BEAKER) (test code = 652) CALCIUM (BEAKER) 9.5 mg/dL 8.4-10.2 (test code = 697) EGFR (BEAKER) (test 33 mL/min/1.73 ESTIMA DAIANA GFR IS code = 1092) sq m NOT ACCURATE CREATININE CLEARANCE IN PREDICTING GLOMERULAR FILTRATION RATE . ESTIMATED GFR I S NOT APPLICABLE FOR DIALYSIS PATIGAURAV MÉNDEZ. [id number] 15:13:00 Test Item Value Reference Range Interpretation Comments PARTIAL THROMBOPLASTIN TIME 27.6 seconds 22.5-36.0 (BEAKER) (test code = 760) PROTHROMBIN TIME/[id number] 15:12:00 Test Item Value Reference Range Interpretation Comments PROTIME (BEAKER) (test code = 13.5 seconds 11.7-14.7 759) INR (BEAKER) (test code = 370) 1.0 <=5.9 RECOMMENDED COUMADIN/WARFARIN INR THERAPY RANGESSTANDARD DOSE: 2.0 - 3.0 Includes: PROPHYLAXIS for venous thrombosis, systemic embolization; TREATMENT for venous thrombosis and/or pulmonary embolus.HIGH RISK: Target INR is 2.5-3.5 for patients with mechanical heart valves.CBC W/PLT COUNT & AUTO [id number] 15:07:00 Test Item Value Reference Range Interpretation Comments WHITE BLOOD CELL COUNT (BEAKER) 10.8 K/ L 3.5-10.5 H (test code = 775) RED BLOOD CELL COUNT (BEAKER) 4.64 M/ L 3.93-5.22 (test code = 761) HEMOGLOBIN (BEAKER) (test code = 9.6 GM/DL 11.2-15.7 L 410) HEMATOCRIT (BEAKER) (test code = 31.9 % 34.1-44.9 L 411) MEAN CORPUSCULAR VOLUME (BEAKER) 68.8 fL 79.4-94.8 L (test code = 753) MEAN CORPUSCULAR HEMOGLOBIN 20.7 pg 25.6-32.2 L (BEAKER) (test code = 751) MEAN CORPUSCULAR HEMOGLOBIN CONC 30.1 GM/DL 32.2-35.5 L (BEAKER) (test code = 752) RED CELL DISTRIBUTION WIDTH 16.7 % 11.7-14.4 H (BEAKER) (test code = 412) PLATELET COUNT (BEAKER) (test 315 K/CU MM 150-450 code = 756) MEAN PLATELET VOLUME (BEAKER) 10.9 fL 9.4-12.3 (test code = 754) NUCLEATED RED BLOOD CELLS 0 /100 WBC 0-0 (BEAKER) (test code = 413) NEUTROPHILS RELATIVE PERCENT 69 % (BEAKER) (test code = 429) LYMPHOCYTES RELATIVE PERCENT 24 % (BEAKER) (test code = 430) MONOCYTES RELATIVE PERCENT 5 % (BEAKER) (test code = 431) EOSINOPHILS RELATIVE PERCENT 0 % (BEAKER) (test code = 432) BASOPHILS RELATIVE PERCENT 1 % (BEAKER) (test code = 437) NEUTROPHILS ABSOLUTE COUNT 7.51 K/ L 1.56-6.13 H (BEAKER) (test code = 670) LYMPHOCYTES ABSOLUTE COUNT 2.59 K/ L 1.18-3.74 (BEAKER) (test code = 414) MONOCYTES ABSOLUTE COUNT (BEAKER) 0.57 K/ L 0.24-0.36 H (test code = 415) EOSINOPHILS ABSOLUTE COUNT 0.00 K/ L 0.04-0.36 L (BEAKER) (test code = 416) BASOPHILS ABSOLUTE COUNT (BEAKER) 0.10 K/ L 0.01-0.08 H (test code = 417) IMMATURE GRANULOCYTES-RELATIVE 0 % 0-1 PERCENT (BEAKER) (test code = 2801) RAD, CHEST, 2 [id number] 14:42:00Reason for exam:->sxIs the patient ?->NoShould this be performed at the bedside?->NoFINAL REPORT Chest 2 views: Reason for exam: Renal stones, preoperative imagingComparison Study: None Discussion: PA and lateral chest x rays were obtained. The heart size and pulmonary vascularity are within normal limits. The lungs are clear. The bones are unremarkable. Impression: Unremarkable PA and lateral chest x-rays. Signed: Mahesh Toledo MDReport Verified Date/Time: 08/29 14:42:46 Reading Location: [address] Radiology Reading Room Notes Date/Time Note Provider Source 2023-01-13 16:38:00 [id number] [place] [address] PATIENT NAME: BIBIANA CASTANO ADMIT DATE: 12/18/22ACCOUN T NO: [id number] ROOM NO: [facility] AGE: 57 REPORT TYPE: 360 - QUERY RESPONSE DOCUMENT SEX: F ADMITTING PHYSICIAN:Federica Phipps MD ATTENDING PHYSICIAN:Sonia Bagley MD Provider Query QUERY TEXT: Relationship Diagnoses General 360MD Query related questions should be directed to: Please clarify the relationship, if any, between [NSTEMI] and [IN-STENT RESTENOSIS]. The patient' s Clinical Indicators include:10-20 H and P and 10-22 TO 10-24 PN [id number] OP REPORT Severe diagonal branch stenosis 2/2severe ISR s/p PCI with DESOptions provided:-- Yes-- No-- Other - I will add my own diagnosis-- Dismiss - Not applicable / Not valid-- Dismiss - Clinically unable to determine / Unknown-- Assign to anothe r provider QUERY RESPONSE: No, I am not in agreement with the cause/effect relationship between the diagnosis documented above. Query created by: Maurice Carter on 12/29/2022 11:26 AM at 1638 PATIENT NAME: BIBIANA CASTANO noteG.[id number] for patient hpwsEDXWHORZLAMSAD1580-31-65R82:39:16 2022-12-22 18:46:00 [id number]:46:00 [facility] ([facility])Hospitalist Discharge SummaryREPORT#:[id number] REPORT STATUS : SignedREPORT INITIALIZATION DATE:12/22/22 TIME: 1845 PATIENT: BIBIANA CASTANO UNIT #: [id number]#: [id number] ROOM/BED: 4403-1DOB: [birth year] AGE: 57 SEX: F ATTEND: Sonia Bagley MDADM AUTHOR: Christoph Tesfaye MDREPT SERVICE DT/TIME: 12/22/221845* ALL edits or amendments must be made on th e electronic/computer document * General Information Free Text General NotesFree Text General Notes: AT BS, NO CP, INFORMED OF CLEARANCE BY CARD TO GO HOME, SHE WANT TO KNOWIF CARD IS GOING TO LOOK AT HER WRIST WHERE SHE HAD CATH. Date of admission:Observation Start Date: Date of admission: 12/18/22 Discharge date: 12/22/22Discharge diagnosis:SEE BELOWHospital course:57 WF WITH OBESITY, DM, HTN, CAD, ADMITTE D WITH NSTEMI, AND SEEN CARD, S/P PCI TO DIAGONAL BRANCH, AND CLEAR BY CARD TO GO HOME.Pt. condition on discharge: improved, stable Free Text DxA P NotesFree text DxA P notes:-Non-STEMI/Chest pain.CAD - S/P PCI TO DIAGONAL, STABLE, CARD SEEN, CONT PLAVIX/BB/ASA, D/C HOME - GERD - STABLE -Insulin-dependent diabetes mellitus - STABLE - HTN - STABLE, CONT HOME MEDS - CKD3a - STABLE -Hyperlipidemia Plan:-Admit to telemetry bed, bedrest and will keep n.p.o.- trend trop and echo ordered. -Management managment. - s/p aspirin and Plavix loading dose, Lovenox 1mg/kg in [place]. - cotinue aspirin and home meds including BB, RAAS and statin. - appreciate Card input. - pt received contrast with CT > will start gentle IVF hydration-Continue PPI for GERD-Her insulin regiment plus sliding scale. VTE prophylaxis wit h Lovenox Med Rec Med RecDischarge meds:Continue taking these medications:METOPROLOL TARTRATE (LOPRESSOR) 25 MG TAB 25 MILLIGRAM ORAL TWICE DAILY. LISINOPRIL (ZESTRIL) 5 MG TAB 5 MILLIGRAM ORAL DAILY. ASPIRIN EC (ECOTRIN) 81 MG TAB.EC 81 MILLIGRAM ORAL DAILY. ATORVASTATIN (LIPITOR) 80 MG TAB 80 MILLIGRAM ORAL BEDTIME. ESOMEPRAZOLE MAG DR (NexIUM) 40 MG CAP.DR 40 MILLIGRAM ORAL DAILY. Qty = 30 OXYBUTYNIN CHLORIDE (OXYBUTYNIN CHLORIDE ER) 10 MG TAB.SR.24H 10 MILLIGRAM ORAL TWICE DAILY. GABAPENTIN (NEURONTIN) 400 MG CAP 400 MILLIGRAM ORAL THREE TIMES A DAY. ACETAMINOPHEN/CODEINE (TYLENOL WITH CODEINE #3 300/30 MG) 300 MG-30 MG TAB 1 TABLET ORAL DAILY NEEDED. as needed for PAIN SCALE 7-10 Start taking the following new medications:CLOPIDOGREL (PLAVIX) 75 MG TAB 75 MILLIGRAM ORAL DAILY. Days = 30 Qty = 30 Refills = 3 ObjectiveNeck: full range of motion, no JVDCardiovascular: normal heart sounds, regular rate rhythmRespiratory: aerating well, clear to auscultationAbdomen: non-tender, softExtremities: no cyanosis, no edemaNeuro/CIGAR WRAPPER TENDER AUTOMATIC: alert, oriented X 3Skin: dry, no rash Discharge Instructions PCPDischarge to: Home/Self CareAdditional Discharge Routines: PCP Follow-Up, [employer] Pl[employer] Follow-UpDiet: Diabetic, Cardiac, Low Fat, Low SodiumActivity: Resume Normal Activity Follow-up AppointmentsPCP follow-up: PCP: Undefined Provider PCP follow up timeframe: In 1-2 weeksConsulting provider 1: Provider 1: Brando Low MD Specialty: Cardiology Consult follow up timeframe: In 1-2 weeks Quality: Discharge Current MedicationsCurrent medication review:I attest that the foregoing medication list in the medical record is true, accurate, and complete t o the best of my knowledge. at 9182 RPT #:[id number] OF REPORTDSDischarge ppxfgsj7722-37-50G47:46:00G.[id number] v ailable for patient wmbvUVKQYPMPNBYIQJ9581-78-98O42:49:49 2022-12-22 10:43:00 [id number]:43:00 [facility] ([facility] Progress NoteREPORT#:[id number] REPORT STATUS: SignedREPOR T INITIALIZATION DATE:12/22/22 TIME: 104 PATIENT: BIBIANA CASTANO UNIT #: [id number]# : [id number] [address] [birth year] AGE : 57 SEX: F ATTEND: Sonia Bagley MDADM AUTHOR: Brando Low MDREPT SERVICE DT/TIME: 12/22/22 1043* ALL edits or amendments must be made on the electronic/computer document * SubjectiveHPI:Ms. Castano is a 57-year-old female with a history of CAD s/p PCI with GERRY x1 (04/2016), T2DM, HTN, HLD , GERD and CKD with solitary kidney who was transferred from a freestanding ER in [place] for NSTEMI. The patient reports that starting yesterday, she experienced substernal chest pain at rest which she attributed to GERD, given similar pain characteristics previously. However , she reported no improvement with Pepcid and Nexium. The pain continued to wax and wane in intensity and, therefore, she presented to a freestanding ER in [place] for further evaluation. At that time, the patient received [place] with improvement in pain. Initial troponin was negative, though subsequently increased to 0.05 --> 0.08. ECG showed no ischemic changes. D-dime r was also elevated with subsequent negative CT PE . The patient received 325 mg aspirin, 300 mg clopidogrel, and Lovenox 1 mg/kg x 1. The patien t was then transferred to [facility] for further management. On arrival, the patient was afebrile with BP 121/70, HR 55 bpm, and SPO2 94% on room air. Initial labs are notable for Hgb 11.8, Cr 1.4, and troponin 157 --> 231 --> 229. The patient was continued on aspirin and home medications were continued. Cardiology was then consulted for further evaluation. This morning, the patient reported resolution of the chest evelyn n and denies any dyspnea, palpitations, orthopnea/PND, LE edema, or presyncope/syncope. Objective Physical ExamHead/Eyes: atraumatic, EOMI, normocephalicNeck: no bruit/NL carotids, n o JVDCardiovascular: CV assessment: regular rate and rhythm, normal heart sounds, no gallop, no murmur, no rubRespiratory: clear to auscultation , no distressAbdomen: soft, non-tender, no distentionLower extremity: LE assessment: no clubbing, no cyanosis, no edema, 2+ peripheral pulsesNeuro/CIGAR WRAPPER TENDER AUTOMATIC: alert, oriented X 3, CN II-XII intact Diagnosis, Assessment Plan Free Text DxA P NotesFree Text DxA P Notes:Ms. Castano is a 57-year-old female with a history of CAD s/p PCI with GERRY x1 (04/2016), T2DM, HTN, HLD, GERD and CKD with solitary kidney who was transferred fro a freestanding ER in [place] for NSTEMI. #NSTEMI#CAD s/p GERRY x1 (04/2016)#HTN#HLD#[id number] presenting with substernal chest pain associated with elevated hxTnI upto 231 and no ischemic ECG changes. Ches t pain is now resolved without recurrence and troponin is downtrending. -Echocardiogram 12/19 showed normal LV systolic function, RVSP 36 mmHg , and no significant valvular abnormalities.-Patient is now s/p coronary angiography on 12/21/22 demonstrating severe mid-LAD stenosis 2/2 severe in-stent restenosis s/p successful OCT-guided PCI with DESx1-Continu e DAPT with aspirin, clopidogrel-Continue home metoprolol and lisinopril-Ok to discharge from a cardiac standpoint-We will arrange post-PCI follow-up in 1-2 weeks at 1045 RPT #:[id number] OF REPORTPRProgress [id number]:43:00G.[id number] l able for patient hcgkFIXEGJUWSJHRIU3768-94-44C13:46:24 2022-12-22 07:40:00 [id number]:40:00 [facility] ([facility])Cardiology Progress NoteREPORT#:[id number] REPORT STATUS: SignedREPOR T INITIALIZATION DATE:12/22/22 TIME: 739 PATIENT: BIBIANA CASTANO UNIT #: [id number]# : [id number] ROOM/BED: G.4403-1DOB: [birth year] AGE : 57 SEX: F ATTEND: Sonia Bagley MDADM AUTHOR: Brando Low MDREPT SERVICE DT/TIME: 12/22/22 0740* ALL edits or amendments must be made on the electronic/computer document * SubjectiveHPI:Ms. Castano is a 57-year-old female with a history of CAD s/p PCI with GERRY x1 (04/2016), T2DM, HTN, HLD , GERD and CKD with solitary kidney who was transferred from a freestanding ER in [place] for NSTEMI. The patient reports that starting yesterday, she experienced substernal chest pain at rest which she attributed to GERD, given similar pain characteristics previously. However , she reported no improvement with Pepcid and Nexium. The pain continued to wax and wane in intensity and, therefore, she presented to a freestanding ER in [place] for further evaluation. At that time, the patient received [place] with improvement in pain. Initial troponin was negative, though subsequently increased to 0.05 --> 0.08. ECG showed no ischemic changes. D-dime r was also elevated with subsequent negative CT PE . The patient received 325 mg aspirin, 300 mg clopidogrel, and Lovenox 1 mg/kg x 1. The patien t was then transferred to [facility] for further management. On arrival, the patient was afebrile with BP 121/70, HR 55 bpm, and SPO2 94% on room air. Initial labs are notable for Hgb 11.8, Cr 1.4, and troponin 157 --> 231 --> 229. The patient was continued on aspirin and home medications were continued. Cardiology was then consulted for further evaluation. This morning, the patient reported resolution of the chest evelyn n and denies any dyspnea, palpitations, orthopnea/PND, LE edema, or presyncope/syncope. Objective Physical ExamHead/Eyes: atraumatic, EOMI, normocephalicNeck: no bruit/NL carotids, n o JVDCardiovascular: CV assessment: regular rate and rhythm, normal heart sounds, no gallop, no murmur, no rubRespiratory: clear to auscultation , no distressAbdomen: soft, non-tender, no distentionLower extremity: LE assessment: no clubbing, no cyanosis, no edema, 2+ peripheral pulsesNeuro/CIGAR WRAPPER TENDER AUTOMATIC: alert, oriented X 3, CN II-XII intact Diagnosis, Assessment Plan Free Text DxA P NotesFree Text DxA P Notes:Ms. Castano is a 57-year-old female with a history of CAD s/p PCI with GERRY x1 (04/2016), T2DM, HTN, HLD, GERD and CKD with solitary kidney who was transferred fro [facility] ER in [place] for NSTEMI. #NSTEMI#CAD s/p GERRY x1 (04/2016)#HTN#HLD#[id number] presenting with substernal chest pain associated with elevated hxTnI upto 231 and no ischemic ECG changes. Ches t pain is now resolved without recurrence and troponin is downtrending. -Echocardiogram 12/19 showed normal LV systolic function, RVSP 36 mmHg , and no significant valvular abnormalities.-Patient is now coronary angiography demonstrating severe ISR of the previous L1blrdx s/p successful OCT-guided PCI with GERRY x1-Continue aspirin and clopidogrel-Continue home metoprolol and lisinopril-Continue telemetry monitoring-Patient is stable for discharge from a cardiac standpoint-We will arrange outpatient follow-up in 1-2 weeks at 1818 RPT #:[id number] OF REPORTPRProgress vghn1982-04-66N51:40:00G.[id number] l able for patient yocxNVNKRASKDAKAED3136-22-69L61:18:16 2022-12-22 06:57:00 [id number] [facility] [place] [address] PATIENT NAME: BIBIANA CASTANO ADMIT DATE: 12/18/22ACCOUN T NO: [id number] ROOM NO: G.4403 AGE: 57 REPORT TYPE: eELECTROCARDIOGRAM REPORT SEX: F ADMITTING PHYSICIAN:Federica Phipps MD ATTENDING PHYSICIAN:Sonia Bagley MD Order:[id number] Reason : Post PCI Test Date/Time Stamp:WedDec 22 2022 06:57:00Blood Pressure : / mmHGVent. Rate : 063 BPM Atrial Rate : 063 BPM P-R Int : 152 ms QRS Dur : 090 ms QT Int : 396 ms P-R-T Axes : 043 075 021 degrees QTc Int : 405 ms Normal sinus rhythmNormal ECG Confirmed by AYE KATHLEEN ([id number] ) on 01/13/2023 2:46:20 PM Referred By: Self Referred Confirmed by:AYE KATHLEEN at 1446 PATIENT NAME: BIBIANA CASTANO .[id number] AVAvailable for patient ofryYAMLMESQMOJLXX1570-04-79E36:46:37 2022-12-21 11:59:00 [id number] [place] [address] PATIENT NAME: BIBIANA CASTANO ADMIT DATE: 12/18/22ACCOUN T NO: [id number] ROOM NO: G.4403 AGE: 57 REPORT TYPE: eELECTROCARDIOGRAM REPORT SEX: F ADMITTING PHYSICIAN:Federica Phipps MD ATTENDING PHYSICIAN:Sonia Bagley MD Order:[id number] Reason : S/P PCI Test Date/Time Stamp:WedDec 21 2022 11:59:14Blood Pressure : / mmHGVent. Rate : 051 BPM Atrial Rate : 051 BPM P-R Int : 158 ms QRS Dur : 098 ms QT Int : 414 ms P-R-T Axes : 035 021 061 degrees QTc Int : 381 ms Sinus bradycardiaConfirmed by AYE KATHLEEN ([id number]) on 01/13/2023 2:40:55 PM Referred By: Self Referred Confirmed by:AYE KATHLEEN at 1440 PATIENT NAME: BIBIANA CASTANO .[id number] AVAvailable for patient [id number]:41:16 2022-12-21 11:38:00 [id number]:00 [facility] ([facility])Cath Post Proc-FullREPORT#:[id number] REPORT STATUS: SignedREPORT INITIALIZATION DATE:12/21/22 TIME: 1137 PATIENT: BIBIANA CASTANO UNIT #: [id number]#: [id number] [address] [birth year] AGE: 57 SEX: F ATTEND: Sonia Bagley AUTHOR: Brando Low MDREPT SERVICE DT/TIME: 12/21/22 1138* ALL edits or amendments must be made on the electronic/computer document * Pre-Procedure Presentation GeneralIndication(s) for label operator: ACS > 24 hrs ACS PresentationNSTEMI: Yes Cath Procedure Cath ProcedureStart date: 12/21/22Start time: 1037Pre-procedure diagnosis:NSTEMIPost-procedure diagnosis: Severe diagonal branch stenosis 2/2 severe ISR s/p successful PCI with DESProcedure performed: diag coronary angiography, OCT - MLA, PCIPerformed by:Brando Low MDAssistant(s): TONYA Francerocedbonnie details : DATE OF PROCEDURE: 12/21/2022 INDICATION FOR PROCEDURE: NSTEMI PCI STATUS: Urgent (performed on an inpatient basis due to concerns that there is risk of ischemia, infarction and/or ) ESCORT SERVICE ATTENDANT: Brando Low MD ASSISTANTS: Zeke Kathleen MD PROCEDURES PERFORMED:*Retrograde right radial arterial access*Selective coronary angiography*OCT of the first diagonal branch*PCI of the first diagonal branch with 2.75 x 23 mm Xiencedrug eluting stent*Successful hemostasis of the right arteria l access site with a TR band inflatedwith 14 cc of air.*Conscious Sedation CPT Codes: 38581 + 96539 x3 (59 minutes) DESCRIPTION OF THE PROCEDUREThe risks, benefits and objectives of the procedure were discussed with the patient. She provided both verbal and written informed consent to proceed. Conscious sedation was achieved with a total of 2 mg of IV midazolam and 100 mcgof IV fentanyl. Lidocaine 1% was used for local anesthesia. Utilizing modified Seldinger technique, retrograde right radial arterial access was gained (with a micropuncture kit), with placement of a 5/6 Fr Glidesheath. Selectiv e coronary angiography was performed with a 5-Fr [place] catheter demonstrating severe stenosis of the first diagonal branch (D1) secondary to severe in-stent restenosis. The decision was mad e to perform PCI. IV heparin was then administered to maintain a therapeutic ACT throughout the procedure. The patient received 180 mg ticagrelo r prior to PCI. The left coronary was then engaged with a 6-Fr EBU3.5 Guide catheter, which provide d good support. The D1 branch was then wired with a 0.014" Runthrough wire. Next, the decision made to perform OCT to better characterize the in-stent restenosis. The OCT device was prepped in usual fashion and advanced overthe run-throug h wire to the mid D1 branch pullback was performed and imaging reviewed. The OCT catheter was then removed. Next, PTCA of the proximal to midD1 branch was performed with a 2.5 x 10 mm [place]in e cutting balloon followed bya 3.0 x 15 mm NC balloon. Next, the proximal to mid D1 branch was stented with a 2.75 x 23 mm Xience drug-eluting stent and postdilated with a 3.0 x 15 mm NC balloon at 18 anna. Repeat OCT was performed, confirming adequate stent expansion and apposition. Final angiographic images were obtained. All catheters and guidewires were removed. Hemostasis was successfully achieved with a TR band inflated with 14 ofair. COMPLICATIONS: No complications, patient tolerated procedure well EBL: < 5 cc FLUORO TIME : 17.6 minutes RADIATION DOSE: 1987 mGy TOTAL CONTRAST USED: 182 mL of Visipaque contrast FINDINGSSELECTIVE CORONARY ANGIOGRAPHY1. The lef t main was a large-caliber vessel which gave rise to the LAD and left circumflex arteries. There was no angiographic evidence of significant disease of the left main.2. The LAD was a medium caliber vessel which gave rise to septal perforators anddiagonal branches before wrapping around the apex distally. There was 20 to 30%stenosis of the mid to distal LAD. There was a 95% stenosis of the proximal to mid D1 secondary to severe in-stent restenosis status post successful PCI with a2.75 x 23 mm Xience GERRY. 3. The Left circumflex was a medium caliber, dominant vessel which gave rise to obtuse marginal branches after which it continued in th e AV groove to supply theleft PDA. There was no angiographic evidence of significant disease in the LCx or major branches.4. The RCA was a small , nondominant vessel which gave rise to acute marginal, PL, and PDA branches. There was a 60-70% mid RCA stenosis no angiographic evidenceof significant disease in the RCA or major branches. PCI RESULTS1. Successful PCI of the D1 branch ISR lesion with a 2.75 x 23 mm Xience GERRY, post-dilated with a 3.0 x 15 mm NC balloon at 18 anna for 20 seconds. There was CARLENE 3 flow distally, with no evidence of dissection, perforation, or distal embolization. Post-PCI OC T confirmed complete stent apposition. CONCLUSIONS1. Severe stenosis of the proximal to mid D1 branch secondary to severe ISR s/psuccessful OCT-guided PCI with GERRY x1 RECOMMENDATIONS1. Transfer back to the inpatient floor for continuation of care.2. Maintain dual antiplatelet therapy with aspirin and ticagrelor for at least 1year, preferably longer.3. Continu e aggressive risk factor modification.4. Cardiac rehab at discharge.5. Follow-up in post PCI clinic in 2 weeks after discharge Brando Low MDInterventional CardiologyFindings:See aboveComplications: noneEstimated blood loss in ml's: 5Specimens removed/altered: noneImplants: none Electronically Signed by Brando Low MD n 12/21/22 at 1154 at 0742 RPT #:[id number] OF REPORTPNProcedure [id number]:38:00G.[id number] l able for patient osskKLTFTWATMSDJZZ2232-88-61A99:54:48 2022-12-21 08:37:00 [id number]:37:00 [facility] ([facility])Cath Post Proc - BriefREPORT#:[id number] REPORT STATUS: SignedREPORT INITIALIZATION DATE:12/21/22 TIME: 0837 PATIENT: BIBIANA CASTANO UNIT #: [id number]#: [id number] [address] AGE: 57 SEX: F ATTEND: Sonia Bagley MDADM AUTHOR: Zeke Kathleen MDREPT SERVICE DT/TIME: 12/21/22 0837* ALL edits or amendments must be made on e electronic/computer document * Antonio Alexander 12/21/22 1144:Pre-Procedure Presentation GeneralIndication(s) for label operator: NSTEMIPatient consent:The patient was informed of the potentia l benefits and risks regarding the procedure and agreed to proceed. Cath Procedure Cath ProcedurePre-procedure diagnosis:NSTEMIPost-procedure diagnosis: CADProcedure performed: left heart cath, PCI, SCA, OCT/Stent to N7Uxdzzpvtt by:Dr Brando Low Aed Trainer(s): Dr Zeke Kathleen Findings:LEft heart cath performed--OCT/Stent to Diagonal 1Complications: noneAnesthesia type: local, moderate sedationMod. sedation provided b y me: yesIndependent trained observer present monitored pt's resp. to the sedation noEstimated blood loss in ml's: 10Disposition: cardiac recovery unitSpecimens removed/altered: none at 1448 at 0742 RPT #:[id number] OF REPORTPNProcedure [id number]:37:00G.[id number] l able for patient fvcnEGSIJUEFKJRRQW5507-63-46N86:49:15 2022-12-20 10:10:00 [id number]:10:00 [facility] ([facility])Hospitalist Gaby ellison NoteREPORT#:[id number] REPORT STATUS: SignedREPOR T INITIALIZATION DATE:12/20/22 TIME: 1010 PATIENT: BIBIANA CASTANO UNIT #: [id number]# : [id number] [address] AGE : 57 SEX: F ATTEND: Sonia Bagley MDADM AUTHOR: Sonia Bagley MDREPT SERVICE DT/TIME: 12/20/22 1010* ALL edits or amendments must be made on the electronic/computer document * SubjectiveChief complaint:no acute complaints, doing well. 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 She described the pain as heartburn centrally located radiating to the back and associated wit h shortness of breath and some tingling feeling in both arms. Patient has appointment with suction operator in January 2023 for her GERDEchocardiogram last year with EF > 60%. in ER, initial trop was WNL then 0.05 then 0.08. EK G with no stemi changes. Elevated D-dimer. CT angiogram showed no PE no aortic dissection or aneurysm.Patient received aspirin 325 mg, Plavix 300 mg, and Lovenox 1mg/kg X1 dose. pain is better currently. Review of SystemsAll systems rev neg: except as noted Free Text ROS NotesFree Text ROS Notes:12 point review of system negativ e unless stated above in the history of presentillness. Objective GeneralVS/I O:Vital Signs: Date Time Temp Pulse Resp B/P B/P Pulse O 2 O2 Flow FiO2 Mean Ox Delivery Rate 12/20 0726 98.2 61 16 116/63 80.9 97 12/20 425 98.4 60 14 167/91 116.1 95 Room air 12/20 425 98.4 60 14 167/91 116.1 95 Room air 12/19 2336 98.2 64 14 160/76 104.0 97 Room air 12/19 2336 98.2 64 14 160/76 104.0 97 Room air 12/197 52 14 135/66 89 12/19 1933 98.6 57 18 144/62 88.9 97 Room air 12/19 1538 98.2 61 15 143/67 92.5 96 12/19 1219 97.3 52 15 149/75 99.5 95 12/19 1134 65 14 98 24 hour I O ending at 0700: 12/20 0700 12/19 1900 Intake Total 380 Output Total Balance 380 Intake , Oral 380 Number Voids 4 PATIENT WEIGHT: Weight (lb): Weight (oz): Weight (kg): 108.100 Medications:Active Meds + DC'd Last 24 HrsSodium Chloride (SODIUM CHLORIDE 0.9%) 1,000 ML .Q13H20 M ONE IV Lisinopril (lisinopriL) 5 MG DAILY PO Acetaminophen/Codeine Phosphate (TYLENOL W CODEINE NO.3) 1 TAB Q6H PRN PRN PO Atorvastatin Calcium (LIPITOR) 40 MG 2100 PO Enoxaparin Sodium (lovENOX) 40 MG Q24H SUBQ (DC) Oxybutynin Chloride (DITROPAN XL) 10 MG BID PO (DC) Gabapentin (NEURONTIN) 400 MG TID PO (DC) Pantoprazole (PROTONIX) 40 MG AC BK PO Gabapenti n (NEURONTIN) 400 MG TID PO Oxybutynin Chloride (DITROPAN XL) 10 MG BID PO Metoprolol Tartrate (LOPRESSOR) 25 MG BID PO Enoxaparin Sodium (lovENOX) 40 MG Q12HR SUBQ Acetaminophen (TYLENOL) 650 MG Q6H PRN PRN PO Aspirin (ASPIRIN ) 81 MG DAILY PO Insulin Human Lispro (HUMALOG) 0 AC HS SUBQ Nitroglycerin (NITROSTAT) 0.4 MG Q5M PRN PRN SL Sodium Chloride (SODIUM CHLORIDE) 10 ML ASDIR IV Sodium Chloride (SODIUM CHLORIDE 0.9%) 1,000 ML .B90R41G IV Dietitian nutrition assessmentThe data set between the solid lines has been imported from the dietitian's assessment. _ BMI Calculated: 40.9Nutrition related diagnosis: Nutrition diagnosis details: Nutrition problem: Nutrition etiology: Nutrition signs and symptoms: Nutritio n prescription: Dietitian name: Assessment completed: _ Physical ExamGeneral appearance : alert, awake, orientedHead/Eyes: atraumatic, normocephalicENT: normal ear left, normal ear right, normal noseNeck: full range of motion, no JVDCardiovascular: normal heart sounds, regular rate rhythmRespiratory: aerating well, clear to auscultationAbdomen: non-tender, softExtremities : no cyanosis, no edemaNeuro/CIGAR WRAPPER TENDER AUTOMATIC: alert, oriented X 3Skin: dry, no rash ResultsFindings/Data:Laboratory Tests 12/20 11/30 1 12/19 0724 2130 1602 Chemistry POC Glucose (70 - 110 MG/DL) 152 H 197 H 154 H Diagnosis, Assessment Plan Free Text DxA P NotesFree text DxA P notes:Assessment:-Nmk-SPLRC-Ofljf pain - GERD -Insulin-dependent diabetes mellitus- HTN - CKD3a -Hyperlipidemia Plan:-Admit to telemetry bed, bedrest and will keep n.p.o.- trend trop an d echo ordered. -Management managment. - s/p aspirin and Plavix loading dose, Lovenox 1mg/kg in [place]. - cotinue aspirin and home meds including BB, RAAS and statin. - appreciate Card input. - pt received contrast with CT > will start gentle IVF hydration-Continue PPI for GERD-Her insulin regiment plus sliding scale. VT E prophylaxis with Lovenox Quality: Gen Med Crit Care VTE ProphylaxisVTE prophylaxis initiated: yes Current MedicationsCurrent medication review:I attest that the foregoing medication list in the medical record is true, accurate, an d complete to the best of my knowledge. at 1011 RPT #:[id number] OF REPORTPRProgress [id number]:10:00G.[id number] l able for patient [id number]:11:36 2022-12-20 08:23:00 [id number]:23:[id number] [place] [address] PATIENT NAME: BIBIANA CASTANO ADMIT DATE: 12/18/22ACCOUN T NO: [id number] ROOM NO: [facility] AGE: 57 REPORT TYPE: eECHOCARDIOGRAM REPORT SEX: F ADMITTING PHYSICIAN:Federica Phipps MD ATTENDING PHYSICIAN:Sonia Bagley MD *[place], [place] [address]Phone: Ydn: [phone] Transthoracic Echocardiogram Patient: Bibiana CastanoStudy Date: 12/19/2022 BP: 118 / 71 [id number] 1965 Age: 57 Height: 64 i n / 162.6 cmAccession#: [id number] Gender: F Weight: 237.5 lb / 108 kgBMI/BSA: 40.9 kg/m 2 / 2.11 m 2 *Ordering Physician: * Federica Phipps *Interpreting Physician: * Devante Michaels*Substance Abuse Specialist: Gabbie Hale - Indications: NSTEMI. - Study data: Transthoracic echocardiogram. Procedure: Transthoracicechocardiography was performed. Image quality was adequate. Qeiziyol6V, complete spectral Doppler, and color Doppler. Location: Bedside.Patient status: Inpatient. Patient room number: 6616. Study status:Routine. - Findings Left ventricle: The cavity size is normal. Wall thickness is mildlyincreased. Systolic function is normal. Th e estimated ejection fractionis 60-65%. Wall motio n is normal; there are no regional wall motionabnormalities. Left ventricular diastolic function parameters areindeterminate.PATIENT NAME: BIBIANA CASTANO Right ventricle: The cavity size i s normal. Systolic function isnormal.Left atrium: The atrium is normal in size.Right atrium: The atrium is normal in size.Aorta: Aortic root: The aortic root is normal in size.Aortic valve: The valve is structurally normal. The valve istrileaflet. There is no evidence of stenosis. There is noregurgitation.Mitral valve: The valve is structurally normal. There is noevidence of stenosis. There is trivial regurgitation.Tricuspid valve: The valve is structurally normal. There is trivialregurgitation.Pulmonic valve: The valve i s structurally normal. There is noregurgitation.Pericardium: A small pericardial effusion is identified.Pulmonary arteries:The main pulmonary artery is normal-sized.Systemic veins:Inferior vena cava: Not visualized. - Measurements Left ventricle Value Ref ADAMARIS, LAX 4.7 cm 3.8 - 5.2 ESD, LAX 3.0 cm 2.2 - 3.5 ESD/bsa, LAX 1.4 cm/m 2 1.3 - 2.1 FS, LAX 36 % 27 - 45 ESD/bsa major ax, 3.3 cm/m 2 -------- A4C ADAMARIS/bsa minor ax, 3.3 cm/m 2 -------- A4C ADAMARIS major ax, A2C 8.0 cm -------- ADAMARIS/bsa major ax, 3.8 cm/m 2 -------- A2C PW, ED 1.3 cm 0.6 - 0.9 IVS/PW, ED 0.97 -------- EF 65 % 54 - 74 E', lat eleanor, TDI 11.1 cm/sec >=10.0 E/e', lat eleanor, TDI 11 -------- E', med eleanor, TDI 7.5 cm/sec >=7.0 E/e', med eleanor, TDI 16 -------- E', avg, TDI 9.3 cm/sec -------- E/e', avg, TDI 13 <=14 LVOT Value Ref Diam, S 2.03 cm -------- Area 3.2 cm 2 -------- Peak belem, S 1.23 m/sec -------- Mean belem, S 0.87 m/se c --------PATIENT NAME: BIBIANA CASTANO VTI, S 29.7 cm -------- Peak grad, S 6 mm Hg -------- Mean grad, S 3 mm Hg -------- SV 96 ml -------- Qs 4.96 L/min -------- Qs/bsa 2.3 L/(min-m 2) -------- SV/bsa 46 ml/m 2 -------- Ventricular septum Value Ref IVS, ED 1.3 cm 0.6 - 0.9 Right ventricle Value Ref ADAMARIS, LAX 3.2 cm -------- TAPSE, MM 2.5 cm 1. 7 - 3.1 Pressure, S 36 mm Hg -------- RVOT Value Ref Peak v, S 0.9 m/sec -------- Peak grad, S 3 mm Hg -------- Left atrium Value Ref Vol/bsa, ES , 1-p 29 ml/m 2 11 - 40 A4C Vol, ES, 2-p 73 ml -------- Vol/bsa, ES, 2-p 34 ml/m 2 16 - 34 Vol/bsa, ES, A/L 29 ml/m 2 16 - 34 AP dim, ES MM 3.6 cm 2.7 - 3.8 LA/Ao root ratio, 1.36 -------- MM Aortic valve Value Ref Leaflet sep, MM 1.57 c m -------- Peak v, S 1.8 m/sec -------- Mean v, S 1.31 m/sec -------- VTI, S 37.9 cm -------- Mean grad, S 7.6 mm Hg -------- Peak grad, S 12.9 mm Hg -------- LVOT/AV, VTI ratio 0.78 -------- ZEYNEP , VTI 2.54 cm 2 -------- LVOT/AV, Vpeak 0.69 -------- ratio ZEYNEP, Vmax 2.22 cm 2 -------- Mitral valve Value Ref Peak E 0.09 m/sec ------- - Peak A 1.01 m/sec -------- Decel time 219 ms -------- PHT 67 ms -------- Peak E/A ratio 1.21 -------- MVA, PHT 3.3 cm 2 -------- MR peak v 4.51 m/sec --------PATIENT NAME: BIBIANA CASTANO Pulmonic valve Value Ref PA v, ED 0.52 m/sec -------- Tricuspid valve Value Ref TR peak v 2.54 m/sec <=2.8 Peak RV-RA grad, S 26 mm Hg -------- Aortic root Valu e Ref Root diam, ED MM 2.65 cm -------- Ascending aorta Value Ref AAo AP diam, S 2.9 cm -------- AAo AP diam/bsa, S 1.4 cm/m 2 -------- Pulmonary artery Value Ref Pressure, S 30.0 mm Hg -------- Systemic veins Value Ref Estimated CVP 10 mm Hg -------- - Conclusions Summary: 1. Left ventricle: The cavity size is normal. Wall thickness is mildly increased. Systolic function is normal. The estimated ejection fraction is 60-65%. Wall motion is normal; there are no regional wall motion abnormalities. Left ventricular diastolic function parameters are indeterminate.2. Right ventricle: The RV pressur e during systole by Doppler is 36 mm Hg.3. There are no significant valvular abnormalities.4. Pericardium, extracardiac: A small pericardial effusion is identified. Prepared and electronically signed by Devante Michaels12/20/2022 08:23 at 0823 PATIENT NAME: BIBIANA CASTANO :23: 0 0G.[id number] for patient [id number]:23:44 2022-12-20 08:09:00 [id number]:09:00 [facility] ([facility]Card[facility] Progress NoteREPORT#:[id number] REPORT STATUS: SignedREPOR T INITIALIZATION DATE:12/20/22 TIME: 08 PATIENT: BIBIANA CASTANO UNIT #: [id number]# : [id number] [address] AGE : 57 SEX: F ATTEND: Sonia Bagley MDADM AUTHOR: Brando Low MDREPT SERVICE DT/TIME: 12/20/22 0809* ALL edits or amendments must be made on the electronic/computer document * SubjectiveHPI:Ms. Castano is a 57-year-old female with a history of CAD s/p PCI with GERRY x1 (04/2016), T2DM, HTN, HLD , GERD and CKD with solitary kidney who was transferred from a freestanding ER in [place] for NSTEMI. The patient reports that starting yesterday, she experienced substernal chest pain at rest which she attributed to GERD, given similar pain characteristics previously. However , she reported no improvement with Pepcid and Nexium. The pain continued to wax and wane in intensity and, therefore, she presented to a freestanding ER in [place] for further evaluation. At that time, the patient received [place] with improvement in pain. Initial troponin was negative, though subsequently increased to 0.05 --> 0.08. ECG showed no ischemic changes. D-dime r was also elevated with subsequent negative CT PE . The patient received 325 mg aspirin, 300 mg clopidogrel, and Lovenox 1 mg/kg x 1. The patien t was then transferred to [facility] for further management. On arrival, the patient was afebrile with BP 121/70, HR 55 bpm, and SPO2 94% on room air. Initial labs are notable for Hgb 11.8, Cr 1.4, and troponin 157 --> 231 --> 229. The patient was continued on aspirin and home medications were continued. Cardiology was then consulted for further evaluation. This morning, the patient reported resolution of the chest evelyn n and denies any dyspnea, palpitations, orthopnea/PND, LE edema, or presyncope/syncope. Objective Physical ExamHead/Eyes: atraumatic, EOMI, normocephalicNeck: no bruit/NL carotids, n o JVDCardiovascular: CV assessment: regular rate and rhythm, normal heart sounds, no gallop, no murmur, no rubRespiratory: clear to auscultation , no distressAbdomen: soft, non-tender, no distentionLower extremity: LE assessment: no clubbing, no cyanosis, no edema, 2+ peripheral pulsesNeuro/CIGAR WRAPPER TENDER AUTOMATIC: alert, oriented X 3, CN II-XII intact Diagnosis, Assessment Plan Free Text DxA P NotesFree Text DxA P Notes:Ms. Castano is a 57-year-old female with a history of CAD s/p PCI with GERRY x1 (04/2016), T2DM, HTN, HLD, GERD and CKD with solitary kidney who was transferred [facility] freestanding ER in [place] for NSTEMI. #NSTEMI#CAD s/p GERRY x1 (04/2016)#HTN#HLD#[id number] presenting with substernal chest pain associated with elevated hxTnI upto 231 and no ischemic ECG changes. Ches t pain is now resolved without recurrence and troponin is downtrending. -Echocardiogram 12/19 showed normal LV systolic function, RVSP 36 mmHg , and no significant valvular abnormalities.-Continue aspirin, clopidogrel-Continue home metoprolol and lisinopril-Continue telemetry monitoring-Plan fo r coronary angiography on tomorrow 12/21-NPO at midnight at 1108 at 1212 RPT #:[id number] OF REPORTPRProgress [id number]:09:00G.[id number] l able for patient [id number]:08:46 2022-12-19 14:33:00 [id number]:33:00 [facility] ([facility])Clinical NoteREPORT#:[id number] REPORT STATUS: SignedREPOR T INITIALIZATION DATE:12/19/22 TIME: 1433 PATIENT: BIBIANA CASTANO UNIT #: [id number]# : [id number] ROOM/BED: 6616-1DOB: [birth year] AGE : 57 SEX: F ATTEND: Sonia Bagley AUTHOR: Sonia BagleyEPT SERVICE DT/TIME: 12/19/22 1433* ALL edits or amendments must be made on the electronic/computer document * Clinical NoteNote:Patient admitted and seen this am by Dr Phipps. I saw her this AM, no acut e change. Patient is here due to concerns for ACS, given she had NSTEMI. She is pending cardiac cat h wednesday, per Cardiology recommendation. Meds reconciled and restarted. at 1434 RPT #:[id number] OF REPORTCLClinical [id number]:33:00G.[id number] l able for patient [id number]:35:19 2022-12-19 08:57:00 [id number]:57:00 [facility] ([facility])Cardiology ConsultationREPORT#:[id number] REPORT STATUS: SignedREPORT INITIALIZATION DATE:12/19/22 TIME: 0857 PATIENT: BIBIANA CASTANO UNIT #: [id number]#: [id number] ROOM/BED: CHMS-3DOB: [birth year] AGE: 57 SEX: F ATTEND: Sonia Bagley AUTHOR: Brando Low MDREPT SERVICE DT/TIME: 12/19/22 0857* ALL edits or amendments must be made on the electronic/computer document * History of Present Illness HPIHPI:Ms. Castano is a 57-year-old female with a history of CAD s/p PCI with GERRY x1 (04/2016), T2DM, HTN, HLD, GERD and CKD with solitary kidney who was transferred fro a freestanding ER in [place] for NSTEMI. The patient reports that starting yesterday, she experienced substernal chest pain at rest which she attributed to GERD, given similar pain characteristics previously. However, she reporte d no improvement with Pepcid and Nexium. The pain continued to wax and wane in intensity and, therefore, she presented to a freestanding ER in [place] for further evaluation. At that time, the patient received [place] with improvement in pain. Initial troponin was negative, though subsequently increased to 0.05 --> 0.08. ECG showed no ischemic changes. D-dimer was also elevated with subsequent negative CT PE. The patient received 325 mg aspirin, 300 mg clopidogrel, and Lovenox 1 mg/kg x 1. The patien t was then transferred to [facility] for further management. On arrival, the patient was afebrile with BP 121/70, HR 55 bpm, and SPO2 94% on room air. Initial labs are notable for Hgb 11.8, Cr 1.4, and troponin 157 --> 231 --> 229. The patient was continued on aspirin and home medications were continued. Cardiology was then consulted for further evaluation. This morning, the patient reported resolution of the chest evelyn n and denies any dyspnea, palpitations, orthopnea/PND, LE edema, or presyncope/syncope. History - Adult longitudinalAdditional medical history:GERD CAD [place] DM HTN Kidney stonesAdditional surgical history:Cardiac stent, Right nephrectomy, Left ureteral lithotrypsyAlcohol use: Denies EtOH useDrug use: Denies recreational drugsSmoking status for patients 13 years old or older: Former SmokerOther social history: Local residentAllergies:Coded Allergies:morphine (Severe, HIVES 12/19/22)Penicillins (UNKNOWN 12/19/22) CLASS Allergy: PENICILLINSQuinolones (UNKNOWN 12/19/22) CLASS Allergy: QUINOLONESlevofloxacin (UNKNOWN 12/19/22) GENERI C Allergy: LEVOFLOXACINmoxifloxacin (From AVELOX) (UNKNOWN 12/19/22)nitrofurantoin (From MACRODANTIN) (UNKNOWN 12/19/22)prochlorperazine (From COMPAZINE) (UNKNOWN 12/19/22) Review of Systems Free Text ROS NotesFree Text ROS Notes:12/12 systems reviewed and are negative except as stated in HPI. Objective GeneralVS/I O:Vital Signs: Date Time Temp Pulse Resp B/P B/P Pulse O2 O2 Flow FiO2 Mean Ox Delivery Rate 11/30 0825 95 Room air 21 12/19 0658 97.5 61 15 136/76 96.0 98 12/19 0412 97.5 59 16 118/71 86.6 95 Altagracia m air 12/19 0117 97.9 55 14 121/70 87.1 94 Room ai r 12/19 0008 98.1 59 18 125/59 81 97 Room air 11/30 0007 62 125/59 85 96 12/18 2101 58 18 167/77 107 98 Room air 12/18 2009 62 18 156/75 102 97 Room air 12/18 1719 72 16 148/67 94 98 12/18 1616 98. 3 81 18 197/97 130 98 Room air 24 hour I O ending at 0700: 12/19 0700 12/18 1900 Intake Total 930.00 Output Total Balance 930.00 Intake, IV 450.00 Intake, Oral 480 Number 0 Bowel Movement s Number Voids 3 Patient 108.1 kg Weight Weight Standing scale Measurement Method PATIENT WEIGHT : Weight (lb): Weight (oz): Weight (kg): 108.100 Medications:Active Meds + DC'd Last 24 HrsAtorvastatin Calcium (LIPITOR) 40 MG 2100 PO Enoxaparin Sodium (lovENOX) 40 MG Q24H SUBQ (DC) Metoprolol Tartrate (LOPRESSOR) 25 MG BID PO Enoxaparin Sodium (lovENOX) 40 MG Q12HR SUBQ Acetaminophen (TYLENOL) 650 MG Q6H PRN PRN PO Aspirin (ASPIRIN) 81 MG DAILY PO Insulin Human Lispro (HUMALOG) 0 AC HS SUBQ Nitroglycerin (NITROSTAT) 0.4 MG Q5M PRN PRN SL Sodium Chlorid e (SODIUM CHLORIDE) 10 ML ASDIR IV Sodium Chlorid e (SODIUM CHLORIDE 0.9%) 1,000 ML .D38H28K IV Insulin Human Lispro (HUMALOG) 0 AC HS SUBQ (CAN ) Insulin Human Lispro (HUMALOG) 0 AC HS SUBQ (DC) Acetaminophen (TYLENOL) 650 MG Q4H PRN PRN PO (DC) Dextrose/Water (DEXTROSE 10% IN WATER) 125 ML ASDIR PRN IV (CAN) Dextrose/Water (DEXTROSE 10% IN WATER) 250 ML ASDIR PRN IV (DC) Dextrose/Water (DEXTROSE 10% IN WATER) 125 ML ASDIR PRN IV (CAN) Dextrose/Water (DEXTROSE 10% IN WATER) 250 ML ASDIR PRN IV (DC) Glucagon (GLUCAGON) 1 MG ASDIR PRN IM (DC) Glucagon (GLUCAGON) 1 MG ASDIR PRN IM (DC) Ketorolac Tromethamine (TORADOL) 15 MG Q6H PRN PRN IV (DC) Ondansetron HCl (ZOFRAN) 4 MG Q6H PRN PRN IV (DC) Clopidogrel Bisulfate (CLOPIDOGREL BISULFATE) 300 MG X1ED STA PO (DC) Enoxaparin Sodium (lovENOX) 108.1 MG X1ED STA SUBQ (DC) Iopamidol (ISOVUE-370 100ML) 95 ML .STK-MED ONE IV (DC) Fentanyl Citrate (SUBLIMAZE) 50 MCG X1ED STA IV (DC) Ondansetron HCl (ZOFRAN) 4 MG X1ED STA IV (DC) Hydrocodone Bitart/Acetaminophen (NORCO 10/325) 1 TAB X1ED STA PO (DC) Ondansetron HCl (ZOFRAN ODT) 4 MG X1ED STA PO (DC) Al Hydrox/Mg Hydrox/Simethicone (MYLANTA) 3 0 ML X1ED STA PO (DC) Lidocaine HCl (Lidocaine HCl Viscous) 15 ML X1ED STA PO (DC) Aspirin (ASPIRIN ) 324 MG X1ED STA PO (DC) Ondansetron HCl (ZOFRAN) 4 MG X1ED STA IV (DC) Physical ExamGeneral appearance: alert, awakeHead/Eyes: atraumatic, EOMI, normocephalicNeck: no bruit/NL carotids, n o JVDCardiovascular: CV assessment: regular rate and rhythm, normal heart sounds, no gallop, no murmur, no rubRespiratory: clear to auscultation , no distressAbdomen: soft, non-tender, no distentionLower extremity: LE assessment: no clubbing, no cyanosis, no edema, 2+ peripheral pulsesNeuro/CIGAR WRAPPER TENDER AUTOMATIC: alert, oriented X 3, CN II-XII intact ResultsFindings/Data:Laboratory Tests 12/18 1638 Blood Gas Sodium (134 - 147 mmol/L) 136 Potassium (3.4 - 5.0 mmol/L) 4.9 Chloride (100 - 108 mmol/L) 102 Ionized Calcium (1.12 - 1.32 MMOL/L) 1.12 Lactic Acid (0.9 - 1.7 mmol/l) 2.8 H Laboratory Tests 12/19 12/19 12/19 12/19 0738 0228 0225 0201 Chemistry Sodium (134 - 147 mEq/L) 136 Potassium (3.4 - 5.0 mEq/L) 3.8 Chloride (100 - 108 mEq/L) 101 Carbon Dioxide (2 1 - 33 mEq/l) 25 Anion Gap (0 - 20) 14 BUN (7 - 2 5 mg/dL) 15 Creatinine (0.6 - 1.3 mg/dL) 1.4 H Glomerular Filtr Rate (90 - 95) 44.4 L Glucose (77 - 141 mg/dL) 169 H POC Glucose (70 - 110 MG/DL) 91 188 H Calcium (8.0 - 10.5 mg/dL) 8.6 Magnesium (1.6 - 2.6 mg/dL) 2.07 Total Bilirubin (0.0 - 1.0 mg/dL) 0.20 AST (8 - 34 IUnit/L) 24 ALT (10 - 49 IUnit/L) 21 Total Alk Phosphatase (20 - 125 IUnit/L) 126 H Troponin I High Sens (0 - 34 ng/L) 229 *H 231 *H Total Protein (6.4 - 8. 2 g/dL) 6.6 Albumin (3.4 - 5.0 g/dL) 3.00 L Triglycerides (40 - 150 mg/dL) 188 H Cholesterol (<200 mg/dL) 202 H LDL Cholesterol Measurd (0 - 100 mg/dL) 147.0 H HDL Cholesterol (40 - 60 MG/DL) 38.8 L Cholesterol/HDL Ratio (3.27 - 4.44 RATIO) 5.21 H 12/18 12/18 12/18 12/18 2353 2316 5 1949 Chemistry POC Glucose (70 - 110 MG/DL ) 133 H POC Troponin I (<0.05 ng/mL) 0.08 *H 0.05 H LDL Cholesterol Measurd (0 - 100 mg/dL) 145.0 H 12/18 12/18 12/18 1930 1730 1638 Chemistry POC Creatinine (0.6 - 1.0 mg/dL) 1.1 H POC Glucose (mg/dL) (70 - 110 MG/DL) 282 H POC Troponin I (<0.05 ng/mL) <0.05 Troponin I High Sens (0 - 34 ng/L) 157 *H Laboratory Tests 12/19 1647 Coagulation PTT (Titus) (25.0 - 39.5 Seconds ) 39.7 H POC D-Dimer (<400 ng/mL) 463 H Laboratory Tests 12/19 1632 Hematology POC WBC (4.1 - 10.4 10 3/uL) 10.5 H WBC (4.5 - 11.0 x10 3/uL) 9.7 POC RBC (3.43 - 5.21 10 6/uL) 4.97 RBC (3.54 - 5.02 x10 6/uL) 4.56 Hgb (11.0 - 15.0 g/dL) 11.8 POC Hgb (10.9 - 14.8 g/dL) 12.8 Hct (33.0 - 45.0 %) 37.4 POC Hct (32.5 - 46.2 %) 38.9 POC MCV (82.5 - 98.0 fL) 78.3 L MCV (81.0 - 99.0 fL) 82.0 POC MCH (26.1 - 32.9 pg) 25.8 L MC H (27.0 - 33.0 pg) 25.9 L POC MCHC (30.7 - 34.9 g/dL) 32.9 MCHC (33.0 - 37.0 g/dL) 31.6 L RDW (11.5 - 14.5 %) 13.9 POC RDW Coeff of Magali (11.8 - 16.4 %) 14.6 POC Platelet Count (136 - 388 10 3/uL) 275 Plt Count (150 - 400 x10 3/uL) 291 POC MPV (7.9 - 13.3 fL) 10.4 MPV (7.0 - 9.0 fL) 10.5 H Neut % (Auto) (56.0 - 77.0 %) 57.6 Lymph % (Auto) (14.0 - 32.0 %) 35.1 H Rincon % (Auto) (4.8 - 9.0 %) 6.2 POC Mixed Cells % (4.7 - 13.3 %) 3. 4 L Eos % (Auto) (0.3 - 3.7 %) 0.1 L Baso % (Auto) (0.0 - 2.0 %) 0.6 POC Neut # (2.4 - 7.5 10 3/uL) 7.30 Neut # (Auto) (2.0 - 7.6 x10 3/uL) 5.60 POC Lymph # (1.0 - 3.4 k/mm3) 2.80 Lymph # (Auto) (1.0 - 3.8 x10 3/uL) 3.41 POC Rincon # (0.3 - 1.1 10 3/uL) 0.4 Rincon # (Auto) (0.1 - 0.8 x10 3/uL) 0.60 Eos # (Auto) (0.0 - 0.2 x10 3/uL) 0.01 Baso # (Auto) (0.0 - 0.2 x10 3/uL) 0.06 Abs Immat Gra n (auto) (0.00 - 0.03 x10 3/uL) 0.04 H Immature Gran % (0.0 - 2.0 %) 0.4 POC Lymphocytes % (13.9 - 44.4 %) 26.8 Nucleated RBC % (0 - 0 %) 0.0 POC Neutrophils % (49.1 - 76.9 %) 69.8 Nucleated RBCs # (Man) (0.0 - 0.1 x10 3/uL) 0.00 Laborator y Tests 12/19 0225 Chemistry Magnesium (1.6 - 2.6 mg/dL) 2.07 Diagnosis, Assessment Plan Free Text DxA P NotesFree Text DxA P Notes:Ms. Castano is a 57-year-old female with a history of CAD s/p PCI with GERRY x1 (04/2016), T2DM, HTN, HLD, GERD and CKD with solitary kidney who was transferred fro a freestanding ER in [place] for NSTEMI. #NSTEMI#CAD s/p GERRY x1 (04/2016)#HTN#HLD#[id number] presenting with substernal chest pain associated with elevated hxTnI upto 231 and no ischemic ECG changes. Ches t pain is now resolved without recurrence and troponin is downtrending. The patient is at low risk at this point with no indication for urgent Management Accountant activation. However, symptoms and initial work-up is consistent with ACS the patient would benefit from coronary angiography prior to discharge.-Follow-up echocardiogram-Continue aspirin, clopidogrel, an d 1 mg/kg Lovenox [id number] home metoprolol an d lisinopril-Continue telemetry monitoring-Plan fo r coronary angiography on Thursday 12/21 Electronically Signed by Brando Low MD n 12/19/22 at 1117 at 1214 RPT #:[id number] OF [id number]:57:00G.PDOC 2 [id number] for patient [id number]:17:42 2022-12-19 01:22:00 [id number]:22:00 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 She described the pain as heartburn centrally located radiating to the mercedes k and associated with shortness of breath and some tingling feeling in both arms. Patient has appointment with suction operator in January 2023 for her GERDEchocardiogram last year with E F > 60%. in ER, initial trop was WNL then 0.05 the n 0.08. EKG with no stemi changes. Elevated D-dimer. CT angiogram showed no PE no aortic dissection or aneurysm.Patient received aspirin 325 mg, Plavix 300 mg, and Lovenox 1mg/kg X1 dose. pain is better currently. Hx Obtained From Patient, Son History Past Medical Surgical HxAdditional medical history:GERD CAD TN DM HTN Kidney stonesAdditional surgical history:Cardiac stent, Right nephrectomy, Left ureteral lithotrypsy Social HistoryAlcohol use: Denies EtOH useDrug use: Denies recreational drugsSmoking status for patients 13 years old or older: Never SmokerOther social history: Local resident Medication/Allergy-Vaccine HxAllergies:Coded Allergies:morphine (Severe, HIVES 12/19/22)Penicillins (UNKNOWN 12/19/22) CLASS Allergy: PENICILLINSQuinolones (UNKNOWN 12/19/22) CLASS Allergy: QUINOLONESlevofloxacin (UNKNOWN 12/19/22) GENERIC Allergy: LEVOFLOXACINmoxifloxacin (From AVELOX) (UNKNOWN 12/19/22)nitrofurantoin (From MACRODANTIN) (UNKNOWN 12/19/22)prochlorperazine (From COMPAZINE) (UNKNOWN 12/19/22) Review of Systems Free Text ROS NotesFree Text ROS Notes:12 point review of system negative unless stated above in the history of presentillness. OBJECTIVEVS/I O:Vital Signs Date Temp Pulse Resp B/P B/P Mean Pulse Ox FiO2 12/18-12/19 97.9-98.3 55-81 14-18 121-197/59-97 81-130 94-98 Last Documented: Result Date Time Pulse Ox 94 12/19 116 B/P 121/70 12/19 116 B/P Mean 87.1 12/19 116 O2 Delivery Room air 12/19 116 Temp 97.9 12/19 116 Pulse 55 12/19 116 Resp 14 12/19 116 24 hour I O ending at 0700: 12/19 0700 12/18 1900 Intake Total Output Total Balance Patient 108.1 kg Weight Weight Standing scale Measurement Method Patient Weight and BMI Weight (kg): 108.100 BMI: 40.9 Medications:Active Meds + DC' d Last 24 HrsAtorvastatin Calcium (LIPITOR) 40 MG 2100 PO Enoxaparin Sodium (lovENOX) 40 MG Q24H SUBQ Aspirin (ASPIRIN) 81 MG DAILY PO Nitroglycerin (NITROSTAT) 0.4 MG Q5M PRN PRN SL Sodium Chloride (SODIUM CHLORIDE) 10 ML ASDIR IV Sodium Chloride (SODIUM CHLORIDE 0.9%) 1,000 ML .[id number] IV Insulin Human Lispro (HUMALOG) 0 AC HS SUBQ (CAN) Insulin Human Lispro (HUMALOG) 0 A C HS SUBQ (DC) Acetaminophen (TYLENOL) 650 MG Q4H PRN PRN PO (DC) Dextrose/Water (DEXTROSE 10% IN WATER) 125 ML ASDIR PRN IV (CAN) Dextrose/Water (DEXTROSE 10% IN WATER) 250 ML ASDIR PRN IV (DC) Dextrose/Water (DEXTROSE 10% IN WATER) 125 ML ASDIR PRN IV (CAN) Dextrose/Water (DEXTROSE 10% IN WATER) 250 ML ASDIR PRN IV (DC) Glucagon (GLUCAGON) 1 MG ASDIR PRN IM (DC) Glucagon (GLUCAGON) 1 MG ASDIR PRN IM (DC) Ketorolac Tromethamine (TORADOL) 15 MG Q6H PRN PRN IV (DC) Ondansetron HCl (ZOFRAN) 4 MG Q6H PRN PRN IV (DC ) Clopidogrel Bisulfate (CLOPIDOGREL BISULFATE) 30 0 MG X1ED STA PO (DC) Enoxaparin Sodium (lovENOX) 108.1 MG X1ED STA SUBQ (DC) Iopamidol (ISOVUE-37 0 100ML) 95 ML .STK-MED ONE IV (DC) Fentanyl Citrate (SUBLIMAZE) 50 MCG X1ED STA IV (DC) Ondansetron HCl (ZOFRAN) 4 MG X1ED STA IV (DC) Hydrocodone Bitart/Acetaminophen (NORCO 10/325) 1 TAB X1ED STA PO (DC) Ondansetron HCl (ZOFRAN ODT ) 4 MG X1ED STA PO (DC) Al Hydrox/Mg Hydrox/Simethicone (MYLANTA) 30 ML X1ED STA PO (DC) Lidocaine HCl (Lidocaine HCl Viscous) 15 ML X1ED STA PO (DC) Aspirin (ASPIRIN) 324 MG X1ED STA PO (DC) Ondansetron HCl (ZOFRAN) 4 MG X1ED STA IV (DC) General appearance: alert, awakeHead/Eyes: atraumatic, normocephalicENT: normal ear left, normal ear right, normal noseNeck: full range of motion, no JVDCardiovascular: normal heart sounds, regular rate rhythmRespiratory: aerating well, clear to auscultationAbdomen: non-tender, softExtremities : no cyanosis, no edemaNeuro/CIGAR WRAPPER TENDER AUTOMATIC: alert, oriented X 3Skin: dry, no rash ResultsFindings/Data:Laboratory Tests: 12/18 12/18 12/18 12/18 12/18 2353 2316 2035 1949 1930Chemistry POC Glucose (70 - 110 MG/DL) 133 H POC Troponin I (<0.05 ng/mL) 0.08 *H 0.05 H Troponin I High Sens (0 - 34 ng/L) 157 *H LDL Cholesterol Measurd (0 - 100 145.0 Hmg/dL) 11/30 0 12/18 12/18 12/18 1730 1647 1638 1632 Blood Gas Sodium (134 - 147 mmol/L) 136 Potassium (3.4 - 5.0 mmol/L) 4.9 Chloride (100 - 108 mmol/L) 102 Ionized Calcium (1.12 - 1.32 MMOL/L) 1.12 Lactic Acid (0.9 - 1.7 mmol/l) 2.8 H Chemistry POC Creatinine (0.6 - 1.0 mg/dL) 1.1 H POC Glucose (mg/dL) (70 - 110 MG/DL) 282 H POC Troponin I (<0.05 ng/mL) <0.05 Coagulation POC D-Dimer (<40 0 ng/mL) 463 H Hematology POC WBC (4.1 - 10.4 10 3/uL) 10.5 H POC RBC (3.43 - 5.21 10 6/uL) 4.97 POC Hgb (10.9 - 14.8 g/dL) 12.8 POC Hct (32.5 - 46.2 %) 38.9 POC MCV (82.5 - 98.0 fL) 78.3 L POC MCH (26.1 - 32.9 pg) 25.8 L POC MCHC (30.7 - 34.9 g/dL) 32.9 POC RDW Coeff of Magali (11.8 - 16. 4 %) 14.6 POC Platelet Count (136 - 388 10 3/uL) 275 POC MPV (7.9 - 13.3 fL) 10.4 POC Mixed Cells % (4.7 - 13.3 %) 3.4 L POC Neut # (2.4 - 7.5 10 3/uL) 7.30 POC Lymph # (1.0 - 3.4 k/mm3) 2.80 PO C Rincon # (0.3 - 1.1 10 3/uL) 0.4 POC Lymphocytes % (13.9 - 44.4 %) 26.8 POC Neutrophils % (49.1 - 76.9 %) 69.8 Radiology data:Recent Impressions:RADIOLOGY - XR CHEST 1 V 12/18 1616 Report Impression - Status: SIGNED Entered: 12/18/2022 1637 IMPRESSION:Mild cardiomegaly with no acute pulmonary process.Impression By: [email or web address] - Alecia Lester M.D.CAT SCAN - CT ANGIO CHEST 12/18 191 Report Impression - Status: SIGNED Entered: 12/18/2022 1927 IMPRESSION: No acute intrathoracic process. Specifically no aortic dissection,atherosclerotic ulcer, or aneurysm. Location: [id number] By: [email or web address] - Fernando Rosario M.D. Diagnosis, Assessment PlanFree Text A P:Assessment:-Fdd-YCLMG-Lyupq pain - GERD -Insulin-dependent diabetes mellitus- HTN - CKD3 a -Hyperlipidemia Plan:-Admit to telemetry bed, bedrest and will keep n.p.o.- trend trop and ech o ordered. -Management managment. - s/p aspirin an d Plavix loading dose, Lovenox 1mg/kg in [place]. - cotinue aspirin and home meds including BB, RAAS and statin. - appreciate Card input. - pt received contrast with CT > will start gentle IV F hydration-Continue PPI for GERD-Her insulin regiment plus sliding scale. VTE prophylaxis wit h Lovenox Plan discussed with: [facility] VTE ProphylaxisVTE prophylaxis initiated: yes Current MedicationsCurrent medication review:I attest that the foregoing medication list in the medical record is true, accurate, and complete to the best of my knowledge. at 0234 RPT #:[id number] OF REPORTHPHistory and physical [id number]:22:00G.[id number] 0 AVAvailable for patient [id number]:35:11 2022-12-18 16:22:00 [id number]:22:00 [facility] HospitalEMERGENCY PROVIDER REPORTREPORT#:[id number] REPORT STATUS: SignedDATE:12/18/22 TIME: 1621 PATIENT: BIBIANA CASTANO UNIT #: [id number]# : [id number] [address]: 57 SEX: F PC P PHYS: Undefined ProviderSERVICE AUTHOR: Ramon Santos MD * ALL edits or amendments must be made on the electronic/computer document * Ramon Santos 12/18/22 1622:HPI-Chest Pain 40 and Over GeneralConfirmed Patient YesPatient Type New patientInitial Greet Date/Time 12/18/22 1615 PresentationChief Complaint Chest painHx Obtaine d From PatientSudden in Onset? YesOnset Occurred TodaySymptom Duration Waxes and wanesProgression since Onset IntermittentLocation SubsternalQuality Same as prior, Aching, BurningRadiationDoes not radiate. )( Migration/Movement NonePain/Sev: Onset ModeratePain/Sev: Current ModerateAssociated Other Pt denies other symptomsExacerbated by NothingRelieved by Nothing Free Text HPI NotesFree Text HPI [id number] female patient has a past medical history of hypertension, diabetes,GERD, TN status post 1 stent reports to the [facility] emerged department complaining of substernal nonradiatin g chest pain has been intermittent throughout the day. Patient denies headache, neck pain, shortness of breath, nausea, vomiting, diarrhea. Risk-Chest Pain 40 and Over Risk Stratification) ( Coronary Artery Disease Risk factors reviewed)( Thoracic Aortic Dissection Risk factors reviewed)( Pulmonary Embolism Risk factors reviewed)( HEART for MACE )( HEART for MACE Response Value History Mod index of suspicion 1 ECG Interpretation Normal ECG 0 Age Age 45 - 65 1 Risk Factors for CAD 3+ CAD risk factors 2 Troponin < or = to NL troponin 0 Total 4 HEART Score for MACE 4-7 (mod risk 12%-16.6%) Review o f Systems ROS StatementsAll systems rev neg except as marked. Focused Review of SystemsCardiovascularReports: Chest pain. Past Medical History - AdultStated Complaint CHEST PAINAllergiesCoded Allergies:morphine (Severe, HIVES 12/19/22)Penicillins (UNKNOWN 12/19/22) CLASS Allergy: PENICILLINSQuinolones (UNKNOWN 12/19/22) CLASS Allergy: QUINOLONESlevofloxacin (UNKNOWN 12/19/22) GENERIC Allergy: LEVOFLOXACINmoxifloxacin (From AVELOX) (UNKNOWN 12/19/22)nitrofurantoin (From MACRODANTIN) (UNKNOWN 12/19/22)prochlorperazine (From COMPAZINE) (UNKNOWN 12/19/22) Home MedicationsActive ScriptsESOMEPRAZOLE MAG DR (NexIUM) 40 MG PO DAILY ESOMEPRAZOLE MAG DR (NexIUM) 40 MG PO DAILY #30 CAPS Prov: 11/15/17 Reported MedicationsGABAPENTIN (NEURONTIN) 400 M G PO TID ACETAMINOPHEN/CODEINE (TYLENOL WITH CODEINE #3 300/30 MG) 1 TAB PO DAILY PRN PRNPAIN SCALE 7-10 METOPROLOL TARTRATE (LOPRESSOR) 25 MG PO BID LISINOPRIL (ZESTRIL) 5 MG PO DAILY ASPIRI N EC (ECOTRIN) 81 MG PO DAILY ATORVASTATIN (LIPITOR) 80 MG PO BEDTIME OXYBUTYNIN CHLORIDE (OXYBUTYNIN CHLORIDE ER) 10 MG PO BID Additional Medical HistoryGERDCADMIDMHTNKidney stonesAdditional Surgical HistoryCardiac stent, Right nephrectomy, Left ureteral lithotrypsyAlcohol Use Denies EtOH useDrug Use Denies recreational drugsOther Social History Local resident Physical Exam Vital SignsVital SignsFirst Documented: Result Date Time Pulse O x 98 12/19 1615 B/P 197/97 12/19 1615 B/P Mean 130 12/19 1615 O2 Delivery Room air 12/19 1615 Temp 98.3 12/18 161 Pulse 81 12/18 161 Resp 18 12/18 161 Last Documented: Result Date Time Pulse Ox 97 12/18 2008 B/P 156/75 12/18 2008 B/ P Mean 102 12/18 2008 O2 Delivery Room air 12/18 2008 Pulse 62 12/18 2008 Resp 18 12/18 2008 Temp 98.3 12/18 161 Review of Vital Signs Reviewed Focused PEGeneral/Const General/Const Awake, AlertEyes Eyes PERRLMS Neck Neck Supple, Full range of motion, No swelling, Non-tender, No masses, No JVDResp/Chest Respiratory/Chest Breath sounds NL, Breath sounds = bilat, No respiratory distress, No rales, No rhonchi, No wheezing, No chest tendernessCardiovascular Cardiovascular Heart rate NL, Regular rhythm, Heart sounds NL, No murmurs, Peripheral circulation NL, Pulses = bilaterally, No gross B P differentialAbdomen/GI Abdomen/GI Soft, Non-tender, No guarding, No reboundMS Back Back Inspection NL, Non-tender, No CVA tendernessMS Lower Extrem Lower Ext/Pelvis/MS Inspection NL, No swelling, Non-tender, No erythema, No deformity, Neurologic intact, Vascular intact, N o edemaSkin Skin Color NL, Warm, Dry, Turgor NLNeurologic Neurologic Oriented X3, Speech NL, No motor deficits, No sensory deficitsPsychiatri c Psychiatric Thought content NL Abnormal Mood/Affect Anxious. Interpretation Diagnostics Lab Results InterpretationConsiderations Indepen d review imaging, Reviewed prior recordsResultsLaboratory Tests: 12/18 12/18 11/30 0 12/18 1930 1730 1647 1638 Blood Gas Sodium (134 - 147 mmol/L) 136 Potassium (3.4 - 5.0 mmol/L) 4.9 Chloride (100 - 108 mmol/L) 102 Ionized Calcium (1.12 - 1.32 MMOL/L) 1.12 Lactic Acid (0.9 - 1.7 mmol/l) 2.8 H Chemistry POC Creatinine (0.6 - 1.0 mg/dL) 1.1 H POC Glucose (mg/dL) (70 - 110 MG/DL) 282 H POC Troponin I (<0.05 ng/mL) 0.05 H <0.05 Troponin I High Sens (0 - 34 ng/L) 157 *H Coagulation POC D-Dimer (<400 ng/mL) 463 H 12/18 1632 Hematology POC WB C (4.1 - 10.4 10 3/uL) 10.5 H POC RBC (3.43 - 5.21 10 6/uL) 4.97 POC Hgb (10.9 - 14.8 g/dL) 12.8 POC Hct (32.5 - 46.2 %) 38.9 POC MCV (82.5 - 98. 0 fL) 78.3 L POC MCH (26.1 - 32.9 pg) 25.8 L POC MCHC (30.7 - 34.9 g/dL) 32.9 POC RDW Coeff of Va r (11.8 - 16.4 %) 14.6 POC Platelet Count (136 - 388 10 3/uL) 275 POC MPV (7.9 - 13.3 fL) 10.4 PO C Mixed Cells % (4.7 - 13.3 %) 3.4 L POC Neut # (2.4 - 7.5 10 3/uL) 7.30 POC Lymph # (1.0 - 3.4 k/mm3) 2.80 POC Rincon # (0.3 - 1.1 10 3/uL) 0.4 POC Lymphocytes % (13.9 - 44.4 %) 26.8 POC Neutrophils % (49.1 - 76.9 %) 69.8 Recent Impressions:RADIOLOGY - XR CHEST 1 V 12/18 1616 Report Impression - Status: SIGNED Entered: 12/18/2022 1637 IMPRESSION:Mild cardiomegaly with no acute pulmonary process.Impression By: Sheng - Alecia Lester M.D.CAT SCAN - CT ANGIO CHEST 12/18 191 Report Impression - Status: SIGNED Entered: 12/18/2022 1927 IMPRESSION: No acute intrathoracic process. Specifically no aortic dissection,atherosclerotic ulcer, or aneurysm. Location: [id number] By: [email or web address] Alyx Rosario M.D. Lab Imaging StatementLaboratory radiographic studies reviewed and considered in the medical decision-making. ECG #1 InterpretationText/Dict NoteEKG performed at 612 read by me at 615. EKG is normal sinus rhythm. There is no acute ischemic changes consistent with a STEMI the ventricular is 81. Re-Evaluatio n MDM Differential Diagnosis)( Differential Diagnosis Acute coronary syndrome, Acute myocardial infarct, Aortic dissection, Chest pain, Chest pain, acute, GERD, Musculoskeletal pain, Myocardial infarction, Myocarditis, Pericarditis Free Text MDM NotesFree Text MDM Notes57 yo with multiple risk factors for cardia c cause of chest pain, reports substernal chest pain.Later in visit reporst CP rad to back.Risk: HTN, DM, CAD, TN stent cardiac workup: No concerns with primary cardiac work up. Normal troponin, normal age adjusted DDimer, CXR normal , EKG NSR with no ischemic concerns (all as interpreted by me.Lactic Acid elevated, likely d o to mild hyperventilation at arrival Plan to obtain 2nd set of trop ekg at 2 hours.CTA Chest Results:as interpreted by rads...no acute. Pt handed off to Dr Bose (night ED MD) at 1915 for trending of trop and disposition. Patient Discharge Departure Vital Signs/ConditionVital SignsFirst Documented: Result Date Time Pulse Ox 98 12/19 1615 B/P 197/97 12/19 1615 B/P Mean 130 12/19 1615 O2 Delivery Room air 12/19 1615 Temp 98.3 12/18 161 Pulse 81 12/19 1615 Resp 18 10/2 0 1616 Last Documented: Result Date Time Pulse Ox 97 12/18 2008 B/P 156/75 12/18 2008 B/P Mean 102 12/18 2008 O2 Delivery Room air 12/18 2008 Puls e 62 12/18 2008 Resp 18 12/18 2008 Temp 98.3 12/18 161 All vital signs available at the time of this entry have been reviewed. Clinical ImpressionClinical ImpressionPrimary Impression: Chest painSecondary Impressions: ACS (acute coronary syndrome), Lactic acid acidosis, NSTEMI (non-ST elevated myocardial infarction) Critical CareTime Spent (minutes): 33Services Performed Patient management by me, Time spent at bedside, Reviewing test results, Reviewing imaging, Discussing patient care, Documentation in recordSeparately billable procedures excluded from time. CC Note 1Total critical care time [33 ] minutes. Total critical care time documented figueroa s not include time spent on separately billed procedures or the services of residents, students, nurses or physician assistants. I personally saw and examined the patient. I have reviewed all diagnostic interpretations and treatment plans as written. I was present for th e long portions of any proceduresperformed and the inclusive time noted in any critical care statement. Critical care time includes patient management by me, time spent at the patients bedside,time to review lab and imaging results, discussing patient care, documentation in the medical record, and time spent with the family o r caregiver. Pt/Provider Handoff Shift Change NoteThis patient's care has been transferred to the incoming physician. We discussed: the patient's chief complaint; labs and imaging that have been completed and those that are still pending; procedures that have been completed and those remaining to be done; any treatment provided and the patient's response to treatment ; input from consultants (if any); the remaining treatment plan. The incoming physician will follow up on all pending labs and imaging, make any necessary changes to the current impression and/or treatment plan and provide a final disposition. Handoff NoteThis patient's care has been transferred to and accepted by [Anjana Ibarra]. We discussed: the patient's chief complaint; labs and imaging that have been completed and those that are still pending; procedures that have been completed and those remaining to be done; any treatment provided and the patient's response to treatment; any significant change in condition; input from consultants if any; the treatment plan prior to the transfer of care. The accepting physician will follow up on all pending labs and imaging and make any necessary changes to the current impression and/or treatment plan. The acceptingphysician is now responsible for the patient's care and final disposition. Care Transferred at 1914Discussed Complaint(s) YesLaboratory Evaluation Back, reviewed by me, Lab evaluation discussedImaging Studies Done, reviewed by me (reviewed results at 1914)Add'l InformationDr Juice will trend second set tro p and dispo Quality Xczpuejf97-Pyqv ECG for CP Performed documented Clayton Bose 1950:Re-Evaluation MDM Re-Evaluation/Progress #1Text/Dict NoteI assumed care of the patient at the beginning of shift change. Lab results show elevated lactic acid, white blood cell count, D-dimer and elevated glucose. Initial troponin levels were within normal limits. EKG did not show any signsof acute cardiac ischemic process. CTA results did not show any findings consistent with an acute dissection or cardiac findings requiring emergent intervention. Patient is afebrile, hemodynamically stable and we discharged at this time. Repeat troponin level o f 0.05. Patient will be admitted for observation t o trend troponin levels. At this time clinical exa m and presentation consistent with NSTEMI. ED CourseMedication(s) OrderedMedication(s) Ordered:Central Nervous System Agents Sig/Héctor Start time Last Medication Dose Route Stop Time Status Admin Acetaminophen 650 MG Q4H PRN PRN 12/18 2030 DC PO 12/19 1924 Ketorolac 15 MG Q6H PRN PRN 12/18 2029 DC Tromethamine IV 12/19 1924 Electrolytic, Caloric, And Crystal Sig/Héctor Start nando e Last Medication Dose Route Stop Time Status Admin Dextrose/Water 250 ML ASDIR PRN 12/18 2030 DC IV 12/20 1923 Dextrose/Water 250 ML ASDIR PA N 12/18 2029 DC IV 12/19 192 Gastrointestinal Drugs Sig/Héctor Start time Last Medication Dose Route Stop Time Status Admin Ondansetron HCl 4 M G Q6H PRN PRN 12/18 2029 DC IV 12/19 1924 Hormones And Synthetic Substit Sig/Héctor Start time Last Medication Dose Route Stop Time Status Admin Insulin Human Lispro 0 AC HS 12/18 2100 DC SUBQ 12/19 1924 Glucagon 1 MG ASDIR PRN 12/18 2030 DC IM 12/20 1923 Glucagon 1 MG ASDIR PRN 12/18 203 0 DC IM 12/19 1924 Patient Discharge Departure Vital Signs/ConditionCondition Stable Dispositio n DecisionHospitalize Hosp Physician Name Federica Phipps MD Hosp Physician Hospitalist Request Time 2027 Request Date 12/18/22 )( Accepts Hospitalization Yes )( Reason for Hospitalizationnstemi,hyperglycemia )( Accepted Time 2027 )( Accepted Date 12/18/22 Call Information will see patient, agrees with eval, agrees with plan Discharge/Care PlanCounseled Regarding Diagnosis, Lab results, Imaging studies, Need for admission Electronically Angeles d by Ramon Santos MD on 12/20/22 at 0653 at 0904RPT #:[id number] OF REPORTEDEmergency department [id number] a ilable for patient [id number]:54:03 2019-06-06 11:58:00 [id number]:58:00 [facility] ([facility])EMERGENCY PROVIDER REPORTREPORT#:[id number] REPORT STATUS: SignedDATE:06/06/19 TIME:1158 PATIENT: BIBIANA CASTANO UNIT #: [id number]# : [id number] ROOM/BED:: 67 AGE: 53 SEX: F PCP PHYS: DOES_NOT KNOWSERVICE AUTHOR: Paul Brewster MD * ALL edits or amendments must be made on the electronic/computer document * HPI-URI/Cough/Col d GeneralInitial Greet Date/Time 06/06/19 1053 PresentationChief Complaint Cough, non-productiveHx Obtained From PatientOnset Occurred GradualSymptom Duration Waxes and wanesProgression since Onset Waxes and wanesContext of Onset Exposure, infectiousLocation Diffuse myalgiaQuality AchingRadiation Does not radiateSeverity: Onset MildSeverity: Current MildAssociated withReports : Anorexia, Body aches, Chills, Cough, Fever, Headache, Myalgia, Nausea. Denies: Abdominal pain, Arthralgia, Chest pain, Diarrhea, Ear pain/ache, Neck pain, Rash, Rhinorrhea, Shortnes s of breath, Sore throat, Sputum production, Vomiting. Associated Other Pt denies other symptomsExacerbated by NothingRelieved by Tiffanie carranza Free Text HPI NotesFree Text HPI NotesPatient presents with cough body aches and fevers at [place] during the coronaviruspandemic. Denies trauma or travel but does report that there has been sick contacts. Reports that her is having similar symptoms. Not currently taking any medication aside from afev-[id number]-jwflwpl medicatio n for symptoms. Review of Systems ROS StatementsAl l systems rev neg except as marked.Complete sys re v neg except as marked. Focused Review of SystemsConstitutionalReports: Chills, Fatigue, Fever, Malaise. Denies: Lethargy, Weakness - generalized. EyesDenies: Eye pain bilat, Redness bilat, Visual loss bilat. Ears/Nose/ThroatDenies : Ear drainage R, Ear drainage L, Ear drainage bilat, Ear ringing R, Ear ringing L, Ear ringing bilat, Earache R, Earache L, Earache bilat, Hearing loss R, Hearing loss L, Hearing loss bilat, Mouth pain, Nasal congestion, Nose bleeding, Sinus problem, Sore throat, Throat pain, Throat swelling, Tongue pain,Tongue swelling, Toothache, Voice change. RespiratoryReports: Cough, non-productive. Denies: Cough, productive, Shortness of breath,Wheezing. GIReports: Nausea. Denies: Abdominal pain, Diarrhea, Vomiting. SkinDenies: Diaphoresis, Rash. Allergy/ImmunDenies: Hives, Itching. NeurologicDenies: Change LOC, Dizziness , Focal weakness, Headache, Numbness, Slurred speech. Past Medical History - AdultStated Complaint NAUSEAAllergiesCoded Allergies:morphin e (Severe, HIVES 05/25/17)Penicillins (UNKNOWN 05/25/17) CLASS Allergy: PENICILLINSQuinolones (UNKNOWN 05/25/17) CLASS Allergy: QUINOLONESlevofloxacin (UNKNOWN 05/25/17) GENERI C Allergy: LEVOFLOXACINmoxifloxacin (From AVELOX) (UNKNOWN 05/25/17)nitrofurantoin (From MACRODANTIN) (UNKNOWN 05/25/17)prochlorperazine (From COMPAZINE) (UNKNOWN 05/25/17) Home MedicationsActive ScriptsESOMEPRAZOLE MAG DR (NexIUM) 40 MG PO DAILY ESOMEPRAZOLE MAG DR (NexIUM) 40 MG PO DAILY #30 CAPS Prov: 11/15/17 Reported MedicationsMETOPROLOL TARTRATE (LOPRESSOR) 25 MG PO BID LISINOPRIL (ZESTRIL) 5 MG PO DAILY ASPIRIN EC (ECOTRIN) 81 MG PO DAILY ATORVASTATIN (LIPITOR) 80 MG PO BEDTIME OXYBUTYNIN XL (DITROPAN XL) 10 MG PO BID Additional Medical HistoryGERD CAD TN DM HTN Kidney stonesAdditional Surgical HistoryCardiac stent, Right nephrectomy, Left ureteral lithotrypsyAlcohol Use Denies EtOH useDrug Use Denies recreational drugsSmoking status for patients 13 years old or older: Former SmokerOther Social History Local resident Physical Exam Vital SignsVital SignsFirst Documented: Result Date Time Pulse Ox 97 06/05 1103 B/P 136/76 06/05 1103 B/P Mean 96.2 06/05 1103 Temp 37.6 06/05 1103 Pulse 68 06/05 1103 Resp 18 06/05 1103 Last Documented: Result Date Time Pulse Ox 98 06/05 1202 B/P 120/74 06/05 1202 B/P Mean 89.6 06/05 1202 Temp 38.2 06/05 1202 Pulse 65 06/05 1202 Resp 18 06/05 1202 Review of Vital Signs Reviewed Basic Physical ExamBasic PE HEAD: Atraumatic/NC, EYES: PERRL, conj clear, NECK: Supple, CV: Reg rate rhythm, ABD: Soft/non-tender, EXT: No gross abnormality, SKIN: No rashes,warm/dry, NEURO: alert oriented, NEURO: gross movement NL, PSYCH: NL thought content Focused PEGeneral/Const General/Const Awake, Alert, Well appearing, Not toxic appearingEyes Eyes PERRLEars/Nose/Throat Ears/Nose/Throat Airway patent, Mucous membranes moist, Pharynx NL, Tympanic membs NL, Ext aud canal NL, Nose exam NL, No sinus tendernessMS Neck Neck Supple, No meningismus, Full range of motion, No adenopathy, No swelling, Non-tenderResp/Chest Respiratory/Chest Breath sounds NL, Breath sounds = bilat, No respiratory distress, No rales, No rhonchi, No wheezing, No retractions, No stridorCardiovascular Cardiovascular Heart rate NL, Regular rhythm, Heart sounds NL, Peripheral circulation NLAbdomen/GI Abdomen/GI Soft, Non-tender, No guarding, No reboundSkin Skin Color NL, No rash, Warm, Dry, Turgor NLNeurologic Neurologic Oriented X3, Speech NL, No motor deficits, No sensory deficits Interpretation Diagnostics Lab Results InterpretationResultsRecent Impressions:RADIOLOGY - XR CHEST 1 V 06/05 1124 Report Impression - Status: SIGNED Entered: 06/06/2019 1148 IMPRESSION: Nonspecific bronchitis.Impression By: [email or web address] Alyx Amaral M.D. Re-Evaluation MDM Free Text MDM NotesFree Text MDM NotesCough during the coronavirus pandemic. Patient comfortable and without respiratory distress. Oxygenating well o n room air. Will discharge homoe with return precautions. COVID instructions and return precautions given. Agrees with plan disposition. Patient stable and comfortable at time of discharge. Albuterol given on discharge. Re-Evaluation/ProgressRe-Evaluation/Progress Nando e of Re-Eval 120 Re-Eval Status Improved URI/Flu Adult MDM NoteThe patient is now resting comfortably, is alert and in no distress. The patienthas a normal mental status and is neurologically intact. The patient appears well and is able to tolerate food or fluid by mouth, and there is no significantdehydration. There is no respiratory distress and no signs of systemic toxicity.The history, exam, diagnostic testing (if any) and current condition do not demonstrat e an infectious process such as meningitis, severe pneumonia, retropharyngeal abscess, epiglottitis , sepsis or other serious bacterial infection requiring further testing, treatment, consultation, or admission at this time. The vital signs have been stable. The patient's condition is stable and appropriate for discharge. The patient will pursue further outpatient evaluation with the primary care physician or other designated or consulting physician as indicated in the discharge instructions. ED CourseMedication(s) OrderedMedication(s) Ordered:Central Nervous System Agents Sig/Héctor Start time Last Medication Dose Route Stop Time Status Admin Ibuprofen 800 MG X1ED STA 06/05 1203 DC PO 06/05 1204 Gastrointestinal Drugs Sig/Héctor Start time Last Medication Dose Route Stop Time Status Admin Ondansetron HCl 4 MG X1ED STA 06/05 1203 DC SL 06/05 1204 Patient Discharge Departure Vital Signs/ConditionVital SignsFirst Documented: Result Date Time Pulse Ox 97 06/05 1103 B/P 136/76 06/05 1103 B/P Mean 96.2 06/05 1103 Temp 37.6 06/05 1103 Pulse 68 06/05 1103 Resp 18 06/05 1103 Last Documented: Result Date Time Pulse Ox 98 06/05 1202 B/P 120/74 06/05 1202 B/P Mean 89.6 06/05 1202 Temp 38.2 06/05 1202 Pulse 65 06/05 1202 Resp 18 06/05 1202 All vital signs available at the time of this entry have been reviewed. Condition Improved, Stable Clinical ImpressionClinical ImpressionPrimary Impression: Cough due to BRANDEN inhibitorTime of Impression 120 5 Disposition DecisionDischarge )( Discharged to Home Yes )( Time 1205 )( Date 06/06/19 Discharge/Care PlanCounseled Regarding Diagnosis , Imaging studies, Prescriptions, Need for follow-up, When to return to EDPrescriptionsAlbuterol and ZofranPrescriptions Reviewed Risks, Benefits, Alternative treatmentReferralsDOES_NOT KNOW (PCP) Discharge NoteI have spoken with the patient and/or caregivers. I have explained the patient'scondition, diagnoses and treatment plan based on the information available to meat this time. I have answered the patient's and/or caregiver's questions and addressed any concerns . The patient and/or caregivers have as good an understanding of the patient's diagnosis, condition and treatment plan as can beexpected a t this point. The vital signs have been stable. Th e patient's condition is stable and appropriate fo r discharge from the emergency department. The patient will pursue further outpatient evaluatio n with the primary care physician or other designated or consulting physician as outlined i n the discharge instructions. The patient and/or caregivers are agreeable to this planof care and follow-up instructions have been explained in detail. The patient and/or caregivers have received these instructions in written format an d have expressed an understanding of the discharge instructions. The patient and/or caregivers are aware that any significant change in condition o r worsening of symptoms should prompt an immediate return to this or the closest emergency department or a call to 911. Quality MeasuresAcute Bronchitis Ab No antibiotic given Electronically Signed by Paul Brewster MD n 06/06/19 at 1903 RPT #: [id number] OF REPORTAudie L. [facility] department [id number]:58:[id number] a ilable for patient [id number]:03:43
--- NOTE | 2023-01-27 18:52 | RAD REPORT ---
EXAM DESCRIPTION: RAD - Chest Pa And Lat (2 Views) - 01/27/2023 6:37 pm CLINICAL HISTORY: COUGH COMPARISON: Chest Single View dated 06/11/2022 TECHNIQUE: PA and lateral views of the chest were obtained. FINDINGS: The lungs are clear. Heart size is normal and central vasculature is within normal limits. No pleural effusion or pneumothorax seen. No acute bony finding noted. IMPRESSION: No acute cardiopulmonary process.
--- NOTE | 2023-01-27 19:23 | EDPHYS ---
Physician Documentation [facility] Name: Bibiana Lomeli Age: 57 yrs Sex: Female : 1965 Arrival Date: 01/27/2023 Time: 17:56 Bed IW3 Private MD: ED Physician Finesse Hayden HPI: 01/27 18:30 This 57 yrs old Female presents to ER via Ambulatory with complaints of Fever, Cough, cp Flu Symptoms. 18:30 The patient reports fever, not measured (subjective). Onset: The symptoms/episode cp began/occurred 1.5 week(s) ago. Associated signs and symptoms: Pertinent positives: cough, nausea, sore throat, Pertinent negatives: diarrhea, vomiting. Severity of symptoms: in the emergency department the symptoms are unchanged despite home interventions. Historical: - Allergies: 18:16 AVALOX; aa5 18:16 Clarithromycin; aa5 18:16 Clindamycin; aa5 18:16 Levaquin; aa5 18:16 Macrodentin; aa5 18:16 Morphine; aa5 18:16 PENICILLINS; aa5 - PMHx: 18:16 diabetes mellitus; Hypertensive disorder; Myocardial infarction; XGP kidney; Myocardial aa5 infarction; - PSHx: 18:16 section; Cholecystectomy; Stented artery; heart stent (Stented artery); aa5 - Immunization history:: Adult Immunizations up to date. - Social history:: Smoking status: unknown. ROS: 18:35 Constitutional: Positive for body aches, Negative for fever, poor PO intake, cp 18:35 Eyes: Negative for injury, pain, redness, and discharge, cp 18:35 Respiratory: Positive for cough, with no reported sputum, Negative for wheezing, 18:35 Abdomen/GI: Positive for nausea, Negative for abdominal pain, vomiting, diarrhea, constipation, Exam: 18:40 Constitutional: The patient appears in no acute distress, alert, awake, non-toxic, well cp developed, well nourished, 18:40 Head/Face: Normocephalic, atraumatic. cp 18:40 Eyes: Periorbital structures: appear normal, Conjunctiva: normal, no exudate, no injection, Sclera: no appreciated abnormality, Lids and lashes: appear normal, bilaterally, 18:40 ENT: External ear(s): are unremarkable, Ear canal(s): are normal, clear, TM's: bulging, is not appreciated, bilaterally, dullness, bilaterally, erythema, is not appreciated, bilaterally, Nose: is normal, Mouth: Lips: moist, Oral mucosa: moist, Posterior pharynx: Airway: no evidence of obstruction, patent, Tonsils: with erythema, no enlargement, no exudate, erythema, that is mild, exudate, is not appreciated, 18:40 Neck: ROM/movement: is normal, is supple, without pain, no range of motions limitations, no meningismus, Lymph nodes: no appreciated lymphadenopathy, 18:40 Chest/axilla: Inspection: normal, 18:40 Cardiovascular: Rate: normal, Rhythm: regular, 18:40 Respiratory: the patient does not display signs of respiratory distress, Respirations: normal, no use of accessory muscles, no retractions, labored breathing, is not present, Breath sounds: decreased breath sounds, are not appreciated, + upper airway congestion. wheezing: is not appreciated, 18:40 Abdomen/GI: Exam negative for discomfort, distension, guarding, Inspection: abdomen appears normal, 18:40 Skin: no rash present. Vital Signs: 18:14 BP 166 / 81; Pulse 80; Resp 19 S; Temp 98.7(O); Pulse Ox 99% on R/A; Weight 104.33 kg aa5 (R); Height 5 ft. 4 in. (R); 20:13 BP 159 / 87; Pulse 82; Resp 17 S; Pulse Ox 99% on R/A; lg3 18:14 Body Mass Index 39.48 (104.33 kg, 162.56 cm) aa5 MDM: 18:06 Patient medically screened. [facility] 19:00 Differential diagnosis: viral Infection, bacterial infection, bronchitis, pneumonia cp gastroenteritis, meningitis. 19:22 Data reviewed: vital signs, nurses notes, lab test result(s), radiologic studies, plain cp films. 19:22 Care significantly affected by the following chronic conditions: Diabetes, cp Hypertension. Counseling: I had a detailed discussion with the patient and/or guardian regarding the historical points, exam findings, and any diagnostic results supporting the discharge/admit diagnosis, lab results, to return to the emergency department if symptoms worsen or persist or if there are any questions or concerns that arise at home. 01/27 18:20 Order name: Flu; Complete Time: 19:21 aa5 01/27 19:21 Interpretation: Reviewed. cp 01/27 18:20 Order name: COVID-19 SARS RT PCR; Complete Time: 19:21 aa5 01/27 18:19 Order name: XRAY Chest Pa And Lat (2 Views); Complete Time: 19:21 cp 01/27 19:21 Interpretation: Report reviewed. cp Administered Medications: No medications were administered Disposition Summary: 01/27/23 19:22 Discharge Ordered Notes: Location: Home cp Problem: new cp Symptoms: are unchanged cp Condition: Stable cp Diagnosis - Cough cp Followup: cp - With: Private Physician - When: 2 - 3 days - Reason: Recheck today's complaints Discharge Instructions: - Discharge Summary Sheet cp - Cool Mist Vaporizer cp - Cough, Adult cp Forms: - Medication Reconciliation Form cp - Thank You Letter cp - Antibiotic Education cp - Prescription Opioid Use cp - Patient Portal Instructions cp - Leadership Thank You Letter cp Prescriptions: - Bromfed DM 2-30-10 mg/5 mL Oral syrup - administer 10 milliliter ORAL route every 6 hours as needed for cold symptoms; cp 240 milliliter; Refills: 0, Product Selection Permitted - albuterol sulfate 90 mcg/actuation Inhalation HFA Aerosol Inhaler - inhale 2 inhalation INHALATION route every 4 to 6 hours as needed for shortness cp of breath or wheezing; 1 unit; Refills: 0, Product Selection Permitted - Doxycycline Monohydrate 100 mg Oral Tablet - take 1 tablet ORAL route every 12 hours for 10 days; 20 tablet; Refills: 0, cp Product Selection Permitted Signatures: Dispatcher [employer] [facility] Finesse Hayden MD MD cha Calderon, Audri, RN RN aa5 Finesse Turcios PA PA cp Mitzi Barriga, SHIMON RN lg3 Corrections: (The following items were deleted from the chart) 18:41 18:20 COVID-19/FLU A+B/RSV+MOL.LAB.BRZ ordered. [facility] 01/28 02:50 01/27 18:30 Onset: The symptoms/episode began/occurred yesterday, cp cp
--- NOTE | 2023-01-27 19:23 | ER ---
Nurse's Notes [facility] Name: Bibiana Lomeli Age: 57 yrs Sex: Female : 1965 Arrival Date: 01/27/2023 Time: 17:56 Bed IW3 Private MD: Diagnosis: Cough Presentation: 01/27 18:14 Chief complaint: Patient states: low grade fever up to 100.2*F x 1 1/2 weeks. Pt also aa5 reports cough. Pt reports she recently had the flu. Coronavirus screen: cough unrelated to allergies. Ebola Screen: Patient denies travel to an Ebola-affected area in the 21 days before illness onset. Initial Sepsis Screen: Does the patient meet any 2 criteria? No. Patient's initial sepsis screen is negative. Does the patient have a suspected source of infection? No. Patient's initial sepsis screen is negative. Risk Assessment: Do you want to hurt yourself or someone else? Patient reports no desire to harm self or others. Onset of symptoms was December 2022. 18:14 Acuity: CHAPARRITA 3 aa5 18:14 Method Of Arrival: Ambulatory aa5 Historical: - Allergies: 18:16 AVALOX; aa5 18:16 Clarithromycin; aa5 18:16 Clindamycin; aa5 18:16 Levaquin; aa5 18:16 Macrodentin; aa5 18:16 Morphine; aa5 18:16 PENICILLINS; aa5 - PMHx: 18:16 diabetes mellitus; Hypertensive disorder; Myocardial infarction; XGP kidney; Myocardial aa5 infarction; - PSHx: 18:16 section; Cholecystectomy; Stented artery; heart stent (Stented artery); aa5 - Immunization history:: Adult Immunizations up to date. - Social history:: Smoking status: unknown. Screenin:13 [facility] ED Fall Risk Assessment (Adult) History of falling in the last 3 months, lg3 including since admission No falls in past 3 months (0 pts). Abuse screen: Denies threats or abuse. Denies injuries from another. Nutritional screening: No deficits noted. Tuberculosis screening: No symptoms or risk factors identified. Assessment: 20:13 General: Appears in no apparent distress. comfortable, Behavior is calm, cooperative. lg3 Pain: Denies pain. Neuro: No deficits noted. Leslie Agitation-Sedation Scale (RASS): 0 - Alert and Calm Level of Consciousness is awake, alert, obeys commands, Oriented to person, place, time, situation. Cardiovascular: No deficits noted. Denies chest pain, shortness of breath, Capillary refill < 3 seconds Clubbing of nail beds is absent JVD is absent Patient's skin is warm and dry. Respiratory: Reports cough that is Airway is patent Respiratory effort is even, unlabored, Respiratory pattern is regular, symmetrical. GI: No deficits noted. No signs and/or symptoms were reported involving the gastrointestinal system. Abdomen is round non-distended, obese. : No deficits noted. No signs and/or symptoms were reported regarding the genitourinary system. EENT: No deficits noted. No signs and/or symptoms were reported regarding the EENT system. Derm: No deficits noted. No signs and/or symptoms reported regarding the dermatologic system. Skin is intact, is healthy with good turgor, Skin is dry, Skin is normal, Skin temperature is warm. Musculoskeletal: No deficits noted. No signs and/or symptoms reported regarding the musculoskeletal system. Circulation, motion, and sensation intact. Range of motion: intact in all extremities. Vital Signs: 18:14 BP 166 / 81; Pulse 80; Resp 19 S; Temp 98.7(O); Pulse Ox 99% on R/A; Weight 104.33 kg aa5 (R); Height 5 ft. 4 in. (R); 20:13 BP 159 / 87; Pulse 82; Resp 17 S; Pulse Ox 99% on R/A; lg3 18:14 Body Mass Index 39.48 (104.33 kg, 162.56 cm) aa5 ED Course: 17:59 Patient arrived in ED. im 17:59 Finesse Turcios PA is PHCP. cp 17:59 Finesse Hayden MD is Attending Physician. cp 18:14 Arm band placed on. aa5 18:16 Triage completed. aa5 18:39 XRAY Chest Pa And Lat (2 Views) In Process Unspecified. EDMS 20:13 Patient has correct armband on for positive identification. lg3 20:13 No provider procedures requiring assistance completed. Patient did not have IV access lg3 during this emergency room visit. Administered Medications: No medications were administered Medication: 20:13 VIS not applicable for this client. lg3 Outcome: 19:22 Discharge ordered by . cp 20:13 Discharged to home ambulatory, lg3 20:13 Condition: stable 20:13 Discharge instructions given to patient, Instructed on discharge instructions, follow up and referral plans. medication usage, Demonstrated understanding of instructions, follow-up care, medications, Prescriptions given X 3, 20:15 Patient left the ED. lg3 Signatures: Dispatcher [employer] EDMS Jenna Bear, RN RN aa5 Finesse Turcios PA PA cp Gibson, Lacie RN RN lg3 Elyssa Diaz
[2023-01-27 20:26] VITALS: TEMP 98.7; O2SAT 99
[2023-01-27 20:28] VITALS: BP 159/87
== END 2023-01-27 20:15 | disposition home or self-care (01) ==
LOC: ER 17:56
DX: R05.9 Cough, unspecified (principal); Z11.52 Encounter for screening for COVID-19; Z88.0 Allergy status to penicillin; Z88.1 Allergy status to other antibiotic agents; Z88.3 Allergy status to other anti-infective agents; Z88.5 Allergy status to narcotic agent; Z88.6 Allergy status to analgesic agent; Z88.8 Allergy status to other drugs, medicaments and biological substances
CPT/HCPCS: 71046; 87635; 87804; 99283